=== PATIENT | female | born 1950 | race African-American/Black ===

== ENCOUNTER 2020-01-04 12:27 | Inpatient (IN) | payer MEDICARE, OTHER ==
[~2020-01-04] VITALS: Ht 172.7 cm; Wt 101.6 kg
[2020-01-04] MEDS ORDERED: FLEET ENEMA133 ML RECTAL (12:39)
[2020-01-04] MEDS ORDERED: KEPPRA500 M4 ORAL (12:39)
[2020-01-04] MEDS ORDERED: ATORVASTATIN CA40 MG ORAL (12:39)
[2020-01-04] MEDS ORDERED: ACETAMINOPHEN325 M1 ORAL (12:39)
[2020-01-04] MEDS ORDERED: BISACODYL5 MG ORAL (12:39)
[2020-01-04] MEDS ORDERED: NEPRO CARB STE237 ML PO (12:39)
[2020-01-04] MEDS ORDERED: SINGULAIR10 MG ORAL (12:39)
[2020-01-04] MEDS ORDERED: RENVELA2.4 GM ORAL (12:42)
[2020-01-04] MEDS ORDERED: LISINOPRIL20 MG ORAL (12:42)
[2020-01-04 13:38] VITALS: BP 128/65
--- NOTE | 2020-01-04 14:42 | Emergency Room Report ---
History of Present Illness General Chief Complaint: General Complaint Source: Patient Present Illness HPI 69-year-old female presents to ED for evaluation. Patient has history of end- stage renal disease was scheduled for dialysis today but could not go. Patient recently tested positive for Covid. Patient states she feels weak. No reported fevers or chills. No reported chest pain. No other aggravating relieving factors. No other associated symptoms Allergies: Coded Allergies: No Known Allergies (Unverified , 01/04/20) COVID-19 Screening Contact w/high risk pt: Yes Experienced COVID-19 symptoms?: Yes COVID-19 Testing performed REGISTERED ASSOCIATE: Yes COVID-19 Screening: Positive COVID-19 COVID-19 Testing Source: nasopharyn Patient History Past Medical History: COPD, renal disease, dialysis Past Surgical History: none Pertinent Family History: none Social History: Denies: smoking, alcohol use, drug use Now: No Immunizations: UTD Reviewed Nursing Documentation: PMH: Agreed; PSxH: Agreed Nursing Documentation-PMH Past Medical History: No History, Except For Hx COPD: Yes Hx Diabetes: Yes Review of Systems All Other Systems: limited Physical Exam Vital Signs Date Time Temp Pulse Resp B/P (MAP) Pulse Ox O2 Delivery O2 Flow Rate FiO2 01/04/20 12:27 99.3 85 15 128/65 (86) 91 Room Air Sp02 EP Interpretation: reviewed, normal General Appearance: lethargic, obese Head: normocephalic, atraumatic Eyes: bilateral eye normal inspection, bilateral eye PERRL ENT: hearing grossly normal, normal pharynx, no angioedema, normal voice Neck: full range of motion, supple/symm/no masses Respiratory: chest non-tender, crackles, speaking full sentences Cardiovascular #1: regular rate, rhythm, no edema Cardiovascular #2: 2+ carotid (R), 2+ carotid (L), 2+ radial (R), 2+ radial (L), 2+ dorsalis pedis (R), 2+ dorsalis pedis (L) Gastrointestinal: normal bowel sounds, non tender, soft, non-distended, no guarding, no rebound Rectal: deferred Genitourinary: normal inspection, no CVA tenderness Musculoskeletal: back normal, normal range of motion, non-tender Neurologic: other - Lethargic Psychiatric: other - Lethargic Reflexes: 3+ bicep (R), 3+ bicep (L), 3+ tricep (R), 3+ tricep (L), 3+ knee (R), 3+ knee (L) Skin: other - See nursing notes Lymphatic: no adenopathy Medical Decision Making Diagnostic Impression: Primary Impression: COVID-19 Additional Impression: ESRD (end stage renal disease) on dialysis ER Course Hospital Course 69-year-old female presenting for ED. Missed dialysis. Covid positive Differential diagnoses include: OK/unstable angina, fluid overload, CHF exacerabation, hyperkalemia, uremia Clinical course Patient placed on stretcher. In isolation. I wore full PPE. On hall monitor. After initial history and physical I ordered labs, EKG, chest x-ray Labs pending. IV access placed by radiology EKGA. fib. No acute ischemic changes interpreted by me Chest x-raybilateral patchy noted Patient confirmed Covid positive Case discussed with Dr. Velasco and he agreed to accept the patient to his s ervice for further care and support I. I feel this is a highly complex case requiring extensive working including EKG/Rhythm strip, Xray/CT/US, Blood/urine lab work, repeat exams while in ED, and administration of strong opiates/narcotics for pain control, admission to hospital or close patient follow up. Diagnosis -COVID-19, ESRD on dialysis admitted to floor in serious condition Laboratory Tests Test 01/04/20 15:45 01/04/20 19:45 01/05/20 04:00 White Blood Count 6.9 K/UL (4.8-10.8) 8.3 K/UL (4.8-10.8) Red Blood Count 3.49 M/UL (4.20-5.40) L 4.38 M/UL (4.20-5.40) Hemoglobin 9.4 G/DL (12.0-16.0) L 11.8 G/DL (12.0-16.0) L Hematocrit 29.0 % (37.0-47.0) L 37.2 % (37.0-47.0) Mean Corpuscular Volume 83 FL (80-99) 85 FL (80-99) Mean Corpuscular Hemoglobin 27.1 PG (27.0-31.0) 27.0 PG (27.0-31.0) Mean Corpuscular Hemoglobin Concent 32.5 G/DL (32.0-36.0) 31.8 G/DL (32.0-36.0) L Red Cell Distribution Width 14.1 % (11.6-14.8) 14.1 % (11.6-14.8) Platelet Count 183 K/UL (150-450) 247 K/UL (150-450) Mean Platelet Volume 7.3 FL (6.5-10.1) 7.3 FL (6.5-10.1) Neutrophils (%) (Auto) 64.8 % (45.0-75.0) 68.3 % (45.0-75.0) Lymphocytes (%) (Auto) 27.2 % (20.0-45.0) 24.6 % (20.0-45.0) Monocytes (%) (Auto) 5.3 % (1.0-10.0) 5.6 % (1.0-10.0) Eosinophils (%) (Auto) 1.2 % (0.0-3.0) 0.6 % (0.0-3.0) Basophils (%) (Auto) 1.4 % (0.0-2.0) 0.9 % (0.0-2.0) Prothrombin Time 11.4 SEC (9.30-11.50) Prothromb Time International Ratio 1.0 (0.9-1.1) Activated Partial Thromboplast Time 29 SEC (23-33) D-Dimer 2.63 mg/L FEU (0.00-0.49) H Sodium Level 135 MMOL/L (136-145) L 135 MMOL/L (136-145) L Potassium Level 5.7 MMOL/L (3.5-5.1) H 4.4 MMOL/L (3.5-5.1) Chloride Level 104 MMOL/L (98-107) 99 MMOL/L (98-107) Carbon Dioxide Level 20 MMOL/L (21-32) L 23 MMOL/L (21-32) Anion Gap 11 mmol/L (5-15) 13 mmol/L (5-15) Blood Urea Nitrogen 76 mg/dL (7-18) H 44 mg/dL (7-18) H Creatinine 7.8 MG/DL (0.55-1.30) H 5.5 MG/DL (0.55-1.30) H Estimat Glomerular Filtration Rate 6.2 mL/min (>60) 9.3 mL/min (>60) Glucose Level 114 MG/DL (74-106) H 96 MG/DL (74-106) Lactic Acid Level 0.80 mmol/L (0.4-2.0) Calcium Level 7.6 MG/DL (8.5-10.1) L 9.3 MG/DL (8.5-10.1) # Ferritin 886 NG/ML (8-388) H Total Bilirubin 0.4 MG/DL (0.2-1.0) Aspartate Amino Transf (AST/SGOT) 30 U/L (15-37) Alanine Aminotransferase (ALT/SGPT) 22 U/L (12-78) Alkaline Phosphatase 80 U/L (46-116) Lactate Dehydrogenase 287 U/L (81-234) H Troponin I 0.048 ng/mL (0.000-0.056) C-Reactive Protein, Quantitative 3.5 mg/dL (0.00-0.90) H Pro-B-Type Natriuretic Peptide 11231 pg/mL (0-125) H Total Protein 6.7 G/DL (6.4-8.2) Albumin 2.4 G/DL (3.4-5.0) L Globulin 4.3 g/dL Albumin/Globulin Ratio 0.6 (1.0-2.7) L Lipase 234 U/L (73-393) Vitamin D 25-Hydroxy Pending 25-Hydroxy Vitamin D2 Pending 25-Hydroxy Vitamin D3 Pending Hepatitis B Surface Antigen Pending Hemoglobin A1c 6.4 % (4.3-6.0) H Calcium (Send out) Pending Phosphorus Level 3.8 MG/DL (2.5-4.9) Magnesium Level 2.3 MG/DL (1.8-2.4) Iron Level 35 ug/dL (50-175) L Total Iron Binding Capacity 200 ug/dL (250-450) L Percent Iron Saturation 18 % (15-50) Unsaturated Iron Binding 165 ug/dL (112-346) Triglycerides Level 58 MG/DL (30-150) Cholesterol Level 105 MG/DL (< 200) LDL Cholesterol 35 mg/dL (<100) HDL Cholesterol 53 MG/DL (40-60) Cholesterol/HDL Ratio 2.0 (3.3-4.4) L Parathyroid Hormone (Intact) Pending EKG Diagnostic Results Troponin ordered: Yes Rate: normal Rhythm: NSR ST Segments: no acute changes ASA given to the pt in ED: No Rhythm Strip Diag. Results EP Interpretation: yes Rhythm: NSR, no PVC's, no ectopy Chest X-Ray Diagnostic Results Chest X-Ray Diagnostic Results : Chest X-Ray Ordered: Yes # of Views/Limited/Complete: 1 View Indication: Other EP Interpretation: Yes Interpretation: no effusion, no pneumothorax, other - patchy consolidation in the right lobe Impression: Other - PNA Electronically Signed by: Electronically signed by Emmett Groves MD Last Vital Signs Date Time Temp Pulse Resp B/P (MAP) Pulse Ox O2 Delivery O2 Flow Rate FiO2 01/04/20 13:38 99.3 78 15 128/65 93 Room Air Status: improved Disposition: ADMITTED INPATIENT Condition: Serious Referrals: Chichi Velasco M.D. (PCP) Emmett Groves MD Jan 04, 2020 14:42
--- NOTE | 2020-01-04 16:06 | History and Physical ---
History of Present Illness General Reason for Hospitalization: General Complaint Present Illness HPI Mrs. Scales is a 59-year-old female with past medical history of ESRD on hemod ialysis, hypertension, diabetes who presents after missing dialysis. Patient has not been feeling well over the last week with generalized malaise, fevers, cough, shortness of breath, and myalgias. Therefore she was denied hemodialysis today and directed to come to the ED for further evaluation. Patient was positive for Covid testing here. He currently lives at home alone and does not know of any other contacts with known Covid. She is currently in distress feeling weak. Denies any recent travels or sick contacts. She does not know the home medication she is currently on. In the ED, patient was dynamically stable and saturating well on room air. She will be admitted for Covid positive infection and hemodialysis. Past medical history: ESRD on HD, hypertension, diabetes Surgical history: Denies any Family history: Denies cardiac cardiac, lung disease Social history: Denies tobacco dependence, alcohol use, drug use Allergies: Coded Allergies: No Known Allergies (Unverified , 01/04/20) COVID-19 Screening Contact w/high risk pt: Yes Experienced COVID-19 symptoms?: Yes Coronavirus symptoms experienc: Fever (T>100.4F or >38C), Fatigue, Shortness of Breath, Muscle or Body Aches Medication History Scheduled Atorvastatin Calcium* (Atorvastatin Calcium*), 40 MG ORAL BEDTIME, (Reported) Bisacodyl* (Dulcolax*), MG ORAL DAILY, (Reported) Levetiracetam (Keppra), 500 MG ORAL EVERY 12 HOURS, (Reported) Lisinopril (Lisinopril*), 20 MG ORAL DAILY, (Reported) Montelukast Sodium* (Singulair*), 10 MG ORAL DAILY, (Reported) Na Phos,M-B/Na Phos,Di-Ba* (Fleet Enema*), 133 ML RECTAL DAILY, (Reported) Sevelamer Carbonate* (Renvela*), 2,400 MG ORAL THREE TIMES A DAY, (Reported) Scheduled PRN Acetaminophen* (Acetaminophen 325MG Tablet*), 325 MG ORAL Q4H PRN for Mild Pain (Pain Scale 1-3), (Reported) Miscellaneous Medications Nut.tx.impaired Renal Fxn,Soy (Nepro Carb Steady), 237 ML PO, (Reported) Patient History Healthcare decision maker Resuscitation status Advanced Directive on File Review of Systems Constitutional: Reports: chills, fever, malaise, weakness; Denies: no symptoms, see HPI, sweats, other Eye: Denies: no symptoms, see HPI, eye pain, blurred vision, tearing, double vision, nose pain, nose congestion, acuity changes, discharge, other ENT: Denies: no symptoms, see HPI, ear pain, ear discharge, nose pain, nose congestion, throat pain, throat swelling, mouth pain, hearing loss, nasal discharge, other Respiratory: Reports: shortness of breath; Denies: no symptoms, see HPI, cough, orthopnea, stridor, wheezing, PERALTA, sputum, other Cardiovascular: Denies: no symptoms, see HPI, chest pain, edema, palpitations, syncope, PND, other Gastrointestinal: Denies: no symptoms, see HPI, abdominal pain, constipation, diarrhea, nausea, vomiting, melena, hematemesis, other Genitourinary: Denies: no symptoms, see HPI, discharge, dysuria, frequency, hematuria, pain, retention, incontinence, urgency, vag bleed/dc, other Musculoskeletal: Denies: no symptoms, see HPI, back pain, gout, joint pain, joint swelling, muscle pain, muscle stiffness, other Skin: Denies: no symptoms, see HPI, rash, change in color, change in hair/nails, dryness, lesions, other Psychiatric: Denies: no symptoms, see HPI, prior hx, anxiety, depressed feelings, emotional problems, SI, HI, hallucinations, other Neurological: Denies: no symptoms, see HPI, headache, numbness, paresthesia, seizure, tingling, tremors, focal weakness, syncope, dizziness, other Endocrine: Denies: no symptoms, see HPI, excessive sweating, flushing, intolerance to temperature, increased thirst, increased urine, unexplained weight loss, other Hematologic/Lymphatic: Denies: no symptoms, see HPI, anemia, blood clots, easy bleeding, easy bruising, swollen glands, diathesis, other Physical Exam General Appearance: alert, moderate distress, agitated, alert oriented x3 Lines, tubes and drains: peripheral HEENT: normocephalic, atraumatic, PERRL Neck: non-tender, normal alignment, normal inspection Respiratory/Chest: lungs clear, normal breath sounds, no respiratory distress Cardiovascular/Chest: normal rate, regular rhythm, no JVD Abdomen: non tender, soft, no organomegaly Extremities: normal range of motion, non-tender Skin Exam: normal pigmentation, warm/dry Neurologic: software solutions architect II-XII grossly normal, alert, oriented x 3 Last 24 Hour Vital Signs Date Time Temp Pulse Resp B/P (MAP) Pulse Ox O2 Delivery O2 Flow Rate FiO2 01/04/20 13:38 99.3 78 15 128/65 93 Room Air 01/04/20 13:01 85 15 Room Air 01/04/20 12:27 99.3 85 15 128/65 (86) 91 Room Air Microbiology Date/Time Source Procedure Growth Status 01/04/20 13:18 Nasopharynx SARS-CoV-2 RdRp Gene Assay - Final Complete Height (Feet): 5 Height (Inches): 8.00 Weight (Pounds): 224 Assessment/Plan Diagnosis [place] I: Mrs. Holly is a 9-year-old female with past medical history of ESRD on hemodialysis presenting for missed hemodialysis and positive Covid. A: # Positive Covid infection # ESRD on hemodialysis # Hyperkalemia # ?Seizure disorder # Hypertension # ?Type 2 diabetes mellitus # Hyperlipidemia # Anemia of ESRD # Hyperglycemia # Obesity class I P: Hemodynamically stable Saturating well on room air, monitor for increased O2 support Keep saturation O2 greater than 92% DuoNebs as needed Add dexamethasone if saturation drops less than 94% - f/u ECHO Follow-up chest x-ray Follow-up inflammatory markers i.e. ferritin, LDH, D-dimer, troponin, CRP We will continue home lisinopril 20 mg daily, atorvastatin 40 mg daily Continue home Keppra 500 mg twice daily that was on her med rec, although patient is not able to clarify if she has a seizure disorder or not - f/u a1c, iron studies, lipid panel Consult Dr. Page, pulm, recs appreciated Consult Dr. Velasco, nephrology, recs appreciated -Consult Dr. Dai, ID, recs appreciated CODE: Full GI: None Diet: Regular DVT prophylaxis: Heparin 5000 units 3 times daily Dispo: Pending stabilization of Covid infection Time spent on this encounter was 45 minutes which included 25 minutes of counseling and care coordination. I discussed with the nurse at bedside. Time of note may not reflect time patient was seen. Arsenio Ferreira D.O Jan 04, 2020 16:06
--- NOTE | 2020-01-04 16:11 | General Progress Note ---
Advance Care Planning Advance Care Planning Advance Care Planning [facility] An independent Hospitalist group, where every patient is our [facility] Internal Medicine Hospitalist Advanced Care Planning Note Please contact us at Date of Discussion: A [id number] discussion with the patient regarding the patient's advanced care planning took place during this hospitalization on the above date. The discussion included the explanation and discussion of advance directives and associated forms/documents, as well as the patient's current code status. We also discussed at length the patient's medical conditions (both acute and chroni c), general prognosis, treatment options, and goals of care. The following summarizes the discussion: Advance Care Planning/Goals of Care: - Will attempt to fill out an AD and/or POLST with the patient prior to discharge, if not already completed - Continue current evaluation and management of any acute and chronic medical issues - Will continue to support the patient/family - Will continue to discuss both short- and long-term goals of care DPOA-HC/Surrogate Decision Maker: None currently appointed Code Status: Full Code Advanced Care Planning Forms/Documents Completed: Deferred until later encounter/visit A total of 17 minutes was spent on this discussion, including counseling, answering questions, and completing, if any, pertinent advanced care planning forms/documents. Time of note may not reflect time of encounter. Arsenio Ferreira D.O Jan 04, 2020 16:11
[2020-01-04] MEDS ORDERED: Milk of Magnesia 30ml Ud ORAL PRN (16:15)
[2020-01-04] MEDS ORDERED: Albuterol/Ipratropium 3ml neb HHN PRN (16:15)
[2020-01-04] MEDS: Heparin 5000 units/ml inj SUBQ SCH ×2 (16:15→21:07)
[2020-01-04] MEDS ORDERED: Mylanta II UD 30ml ORAL PRN (16:15)
[2020-01-04 16:26] LABS: BASOPHILS % (AUTO) 1.4 % (0.0-2.0); EOSINOPHILS % (AUTO) 1.2 % (0.0-3.0); HEMOGLOBIN 9.4 G/DL (12.0-16.0); LYMPHOCYTES % (AUTO) 27.2 % (20.0-45.0); MEAN CORPUSCULAR VOLUME 83 FL (80-99); MONOCYTES % (AUTO) 5.3 % (1.0-10.0); NEUTROPHILS % (AUTO) 64.8 % (45.0-75.0); PLATELET COUNT 183 K/UL (150-450); RED BLOOD COUNT 3.49 M/UL (4.20-5.40); RED CELL DISTRIBUTION WIDTH 14.1 % (11.6-14.8); WHITE BLOOD COUNT 6.9 K/UL (4.8-10.8)
--- NOTE | 2020-01-04 16:26 | Consultation ---
History of Present Illness General Chief Complaint: General Complaint Reason for Consultation: ESRD on HD Present Illness HPI Mrs. Scales is a 59-year-old female with past medical history of ESRD on hemodialysis, hypertension, diabetes who presents after missing dialysis. Patient has not been feeling well over the last week with generalized malaise, fevers, cough, shortness of breath, and myalgias. Therefore she was denied hemodialysis today and directed to come to the ED for further evaluation. Patient was positive for Covid testing here. He currently lives at home alone and does not know of any other contacts with known Covid. Allergies: Coded Allergies: No Known Allergies (Unverified , 01/04/20) Medication History Scheduled Atorvastatin Calcium* (Atorvastatin Calcium*), 40 MG ORAL BEDTIME, (Reported) Bisacodyl* (Dulcolax*), MG ORAL DAILY, (Reported) Levetiracetam (Keppra), 500 MG ORAL EVERY 12 HOURS, (Reported) Lisinopril (Lisinopril*), 20 MG ORAL DAILY, (Reported) Montelukast Sodium* (Singulair*), 10 MG ORAL DAILY, (Reported) Na Phos,M-B/Na Phos,Di-Ba* (Fleet Enema*), 133 ML RECTAL DAILY, (Reported) Sevelamer Carbonate* (Renvela*), 2,400 MG ORAL THREE TIMES A DAY, (Reported) Scheduled PRN Acetaminophen* (Acetaminophen 325MG Tablet*), 325 MG ORAL Q4H PRN for Mild Pain (Pain Scale 1-3), (Reported) Miscellaneous Medications Nut.tx.impaired Renal Fxn,Soy (Nepro Carb Steady), 237 ML PO, (Reported) Patient History Healthcare decision maker Resuscitation status Advanced Directive on File Review of Systems All Other Systems: negative except mentioned in HPI Physical Exam General Appearance: no apparent distress, alert Lines, tubes and drains: peripheral HEENT: normocephalic, atraumatic Neck: non-tender, normal alignment Respiratory/Chest: chest wall non-tender, lungs clear, normal breath sounds Cardiovascular/Chest: normal peripheral pulses, normal rate, regular rhythm Abdomen: normal bowel sounds, non tender, soft Extremities: normal range of motion, non-tender Skin Exam: normal pigmentation Neurologic: alert, oriented x 3 Last 24 Hour Vital Signs Date Time Temp Pulse Resp B/P (MAP) Pulse Ox O2 Delivery O2 Flow Rate FiO2 01/04/20 13:38 99.3 78 15 128/65 93 Room Air 01/04/20 13:01 85 15 Room Air 01/04/20 12:27 99.3 85 15 128/65 (86) 91 Room Air Laboratory Tests Test 01/04/20 15:45 White Blood Count Pending Red Blood Count Pending Hemoglobin Pending Hematocrit Pending Mean Corpuscular Volume Pending Mean Corpuscular Hemoglobin Pending Mean Corpuscular Hemoglobin Concent Pending Red Cell Distribution Width Pending Platelet Count Pending Mean Platelet Volume Pending Neutrophils (%) (Auto) Pending Lymphocytes (%) (Auto) Pending Monocytes (%) (Auto) Pending Eosinophils (%) (Auto) Pending Basophils (%) (Auto) Pending Prothrombin Time Pending Prothromb Time International Ratio Pending Activated Partial Thromboplast Time Pending D-Dimer Pending Sodium Level Pending Potassium Level Pending Chloride Level Pending Carbon Dioxide Level Pending Blood Urea Nitrogen Pending Creatinine Pending Estimat Glomerular Filtration Rate Pending Glucose Level Pending Lactic Acid Level Pending Calcium Level Pending Ferritin Pending Total Bilirubin Pending Aspartate Amino Transf (AST/SGOT) Pending Alanine Aminotransferase (ALT/SGPT) Pending Alkaline Phosphatase Pending Lactate Dehydrogenase Pending Troponin I Pending C-Reactive Protein, Quantitative Pending Pro-B-Type Natriuretic Peptide Pending Total Protein Pending Albumin Pending Globulin Pending Lipase Pending Microbiology Date/Time Source Procedure Growth Status 01/04/20 16:00 Rectum Received 01/04/20 13:18 Nasopharynx SARS-CoV-2 RdRp Gene Assay - Final Complete Height (Feet): 5 Height (Inches): 8.00 Weight (Pounds): 224 Medications Current Medications Medications (Trade) Dose Ordered Sig/Aurelio Route PRN Reason Start Time Stop Time Status Last Admin Dose Admin Acetaminophen (Tylenol) 650 mg Q4H PRN ORAL Mild Pain (Pain Scale 1-3) 01/04/20 16:15 02/03/20 16:14 Acetaminophen (Tylenol) 650 mg Q4H PRN ORAL Temp >100.5 01/04/20 16:15 02/03/20 16:14 Al Hydroxide/Mg Hydroxide (Mylanta II) 30 ml Q6H PRN ORAL dyspepsia 01/04/20 16:15 02/03/20 16:14 Albuterol/ Ipratropium (Combivent Respimat) 1 puff Q4H PRN INH Shortness of Breath 01/04/20 16:15 02/03/20 16:14 Atorvastatin Calcium (Lipitor) 40 mg BEDTIME ORAL 01/04/20 21:00 04/03/20 20:59 Dextrose (Dextrose 50%) 25 ml Q30M PRN IV Hypoglycemia 01/04/20 16:15 04/03/20 16:14 Dextrose (Dextrose 50%) 50 ml Q30M PRN IV Hypoglycemia 01/04/20 16:15 04/03/20 16:14 Heparin Sodium (Porcine) (Heparin 5000 units/ml) 5,000 units EVERY 8 HOURS SUBQ 01/04/20 16:15 02/18/20 16:14 Levetiracetam (Keppra) 500 mg EVERY 12 HOURS ORAL 01/04/20 21:00 02/03/20 20:59 Lisinopril (PriniviL) 20 mg DAILY ORAL 01/05/20 09:00 02/04/20 08:59 Magnesium Hydroxide (Mom) 30 ml HSPRN PRN ORAL Constipation 01/04/20 16:15 02/03/20 16:14 Ondansetron HCl (Zofran) 4 mg Q6H PRN IVP Nausea & Vomiting 01/04/20 16:15 02/03/20 16:14 Assessment/Plan Diagnosis [place] I: # Positive Covid infection # ESRD on hemodialysis # Hyperkalemia # ?Seizure disorder # Hypertension # ?Type 2 diabetes mellitus # Hyperlipidemia # Anemia of ESRD # Hyperglycemia # Obesity class I - emergent HD today - monitor bmp - pulm and ID eval - consider dexa - continue lisinopril 20mg daily - continue keppra - check pTH vitamin D - check iron panel Chichi Velasco M.D. Jan 04, 2020 16:26
--- NOTE | 2020-01-04 16:37 | Diagnostic Imaging Report ---
Indication: Cough Technique: One view of the chest Comparison: none Findings: The heart is upper limits normal in size. There are bilateral interstitial and airspace infiltrates versus edema Impression: Bilateral infiltrates versus edema. Correlate with clinical findings
[2020-01-04 16:42] LABS: CALCIUM 7.6 MG/DL (8.5-10.1); CREATININE 7.8 MG/DL (0.55-1.30); POTASSIUM 5.7 MMOL/L (3.5-5.1)
[2020-01-04 16:53] LABS: ALBUMIN 2.4 G/DL (3.4-5.0); ALBUMIN/GLOBULIN RATIO 0.6 (1.0-2.7); BILIRUBIN,TOTAL 0.4 MG/DL (0.2-1.0)
[2020-01-04] MEDS ORDERED: Sodium Polystyrene Sulfonate 15gm Powder ORAL ONE (17:00)
[2020-01-04] MEDS ORDERED: Sodium Polystyrene Sulfonate 15gm Powder ORAL SCH (17:00)
[2020-01-04 17:54] VITALS: BP 117/47
[2020-01-04] MEDS ORDERED: Albuterol 90mcg Inhaler 8gm INH SCH (18:00)
[2020-01-04] MEDS ORDERED: Calcium Chloride 10% 10ml carpuject IVP SCH (18:00)
[2020-01-04 18:15] VITALS: BP 128/80
--- NOTE | 2020-01-04 19:45 | Consultation ---
DATE OF CONSULTATION: 01/04/2020 PULMONARY CONSULTATION CONSULTING PHYSICIAN: Osmin Page MD HISTORY OF PRESENT ILLNESS: This is a 59-year-old female with a history of ESRD, on dialysis. She came to the hospital after having missed dialysis. The patient is known hypertensive and diabetic as well. She reports feeling unwell with fevers, cough, and shortness of breath. The patient was seen and evaluated in the emergency room and her COVID-19 test came back positive. She is now being admitted for subsequent management and care. Currently, she is saturating well on room air. PAST MEDICAL HISTORY: ESRD on dialysis, hypertension, diabetes mellitus. HOME MEDICATIONS: Lipitor, Keppra, lisinopril, Singulair, and Renvela. ALLERGIES: None reported. PREVIOUS SURGERIES: None. REVIEW OF SYSTEMS: The patient denies any headaches, hematemesis, melena, hematochezia, night sweats, or weight loss. PHYSICAL EXAMINATION: GENERAL: Reveals a pleasant female. VITAL SIGNS: Blood pressure is 120/60, heart rate 74, respirations 16, O2 saturation 93% on room air. HEENT: Unremarkable. LUNGS: Clear breath sounds bilaterally. ABDOMEN: Soft. EXTREMITIES: There is no edema. NEUROLOGIC: Nonfocal. LABORATORY DATA: Lab testing shows normal CBC and BMP with exception of hemoglobin 11.4 and creatinine 7.8. Ferritin 886. LDH 287. IMAGING STUDIES: The patient underwent chest x-ray, which shows bilateral infiltrates. IMPRESSION: 1. COVID pneumonia. 2. ESRD, on dialysis. 3. Hypertension. 4. Diabetes mellitus. DISCUSSION: Admit to the hospital. Currently saturating well on room air, we will continue. Advise steroid usage. We will also recommend remdesivir. We will defer to ID for subsequent assessment. We will follow carefully. Osmin Page M.D. DR: RODRICK JOB#: [id number] CC:
[2020-01-04 21:00] VITALS: BP 153/76
[2020-01-04] MEDS: Atorvastatin 20mg tab ORAL SCH (21:06)
[2020-01-05] VITALS: BP 151/89
[2020-01-05 04:00] VITALS: BP 156/84
[2020-01-05 05:32] LABS: BASOPHILS % (AUTO) 0.9 % (0.0-2.0); EOSINOPHILS % (AUTO) 0.6 % (0.0-3.0); HEMATOCRIT 37.2 % (37.0-47.0); HEMOGLOBIN 11.8 G/DL (12.0-16.0); LYMPHOCYTES % (AUTO) 24.6 % (20.0-45.0); MEAN CORPUSCULAR VOLUME 85 FL (80-99); MONOCYTES % (AUTO) 5.6 % (1.0-10.0); NEUTROPHILS % (AUTO) 68.3 % (45.0-75.0); PLATELET COUNT 247 K/UL (150-450); RED BLOOD COUNT 4.38 M/UL (4.20-5.40); RED CELL DISTRIBUTION WIDTH 14.1 % (11.6-14.8); WHITE BLOOD COUNT 8.3 K/UL (4.8-10.8)
[2020-01-05] MEDS: Heparin 5000 units/ml inj SUBQ SCH ×3 (05:45→21:17)
[2020-01-05 05:53] LABS: ANION GAP 13 mmol/L (5-15); BLOOD UREA NITROGEN 44 mg/dL (7-18); CALCIUM 9.3 MG/DL (8.5-10.1); CARBON DIOXIDE 23 MMOL/L (21-32); CHLORIDE 99 MMOL/L (98-107); CHOLESTEROL 105 MG/DL (< 200); CREATININE 5.5 MG/DL (0.55-1.30); HDL CHOLESTEROL 53 MG/DL (40-60); PHOSPHORUS 3.8 MG/DL (2.5-4.9); POTASSIUM 4.4 MMOL/L (3.5-5.1); SODIUM 135 MMOL/L (136-145); TRIGLYCERIDES 58 MG/DL (30-150)
[2020-01-05 05:58] LABS: % IRON SATURATION 18 % (15-50); IRON 35 ug/dL (50-175); TOTAL IRON BINDING CAPACITY 200 ug/dL (250-450)
[2020-01-05 08:00] VITALS: BP 161/81
[2020-01-05] MEDS: Lisinopril 20mg tab ORAL SCH (08:42)
--- NOTE | 2020-01-05 09:42 | Pulmonology Progress Note ---
Subjective Interval Events: None new reported Constitutional: Reports: no symptoms HEENT: Repors: no symptoms Respiratory: Reports: no symptoms Cardiovascular: Reports: no symptoms Gastrointestinal/Abdominal: Reports: no symptoms Allergies: Coded Allergies: No Known Allergies (Unverified , 01/04/20) Objective Last 24 Hour Vital Signs Date Time Temp Pulse Resp B/P (MAP) Pulse Ox O2 Delivery O2 Flow Rate FiO2 01/05/20 08:42 161/81 01/05/20 04:00 98.9 96 18 156/84 (108) 98 01/05/20 00:00 98.6 95 18 151/89 (109) 98 01/04/20 22:44 Room Air 01/04/20 21:00 98.9 96 20 153/76 (101) 98 01/04/20 18:15 99.7 81 22 128/80 (96) 98 01/04/20 18:04 99.0 85 17 117/47 100 Room Air 01/04/20 17:54 99.0 85 17 117/47 100 Room Air 01/04/20 13:38 99.3 78 15 128/65 93 Room Air 01/04/20 13:01 85 15 Room Air 01/04/20 12:27 99.3 85 15 128/65 (86) 91 Room Air Intake and Output 01/04/20 01/05/20 19:00 07:00 Intake Total 150 ml Balance 150 ml Intake Oral 150 ml # Voids 1 2 General Appearance: no acute distress HEENT: normocephalic Respiratory: chest wall non-tender, lungs clear Cardiovascular: normal peripheral pulses Abdomen: normal bowel sounds Microbiology Date/Time Source Procedure Growth Status 01/04/20 16:00 Rectum Received 01/04/20 13:18 Nasopharynx SARS-CoV-2 RdRp Gene Assay - Final Complete Laboratory Tests 01/04/20 15:45: White Blood Count 6.9, Red Blood Count 3.49L, Hemoglobin 9.4L, Hematocrit 29.0L, Mean Corpuscular Volume 83, Mean Corpuscular Hemoglobin 27.1, Mean Corpuscular Hemoglobin Concent 32.5, Red Cell Distribution Width 14.1, Platelet Count 183, Mean Platelet Volume 7.3, Neutrophils (%) (Auto) 64.8, Lymphocytes (%) (Auto) 27.2, Monocytes (%) (Auto) 5.3, Eosinophils (%) (Auto) 1.2, Basophils (%) (Auto) 1.4, Prothrombin Time 11.4, Prothromb Time International Ratio 1.0, Activated Partial Thromboplast Time 29, D-Dimer 2.63H, Sodium Level 135L, Potassium Level 5.7H, Chloride Level 104, Carbon Dioxide Level 20L, Anion Gap 11, Blood Urea Nitrogen 76H, Creatinine 7.8H, Estimat Glomerular Filtration Rate 6.2, Glucose Level 114H, Lactic Acid Level 0.80, Calcium Level 7.6L, Ferritin 886H, Total Bilirubin 0.4, Aspartate Amino Transf (AST/SGOT) 30, Alanine Aminotransferase (ALT/SGPT) 22, Alkaline Phosphatase 80, Lactate Dehydrogenase 287H, Troponin I 0.048, C-Reactive Protein, Quantitative 3.5H, Pro-B-Type Natriuretic Peptide 74806H, Total Protein 6.7, Albumin 2.4L, Globulin 4.3, Albumin/Globulin Ratio 0.6L, Lipase 234, Vitamin D 25-Hydroxy [Pending], 25-Hydroxy Vitamin D2 [Pending], 25-Hydroxy Vitamin D3 [Pending] 01/04/20 19:45: Hepatitis B Surface Antigen [Pending] 01/05/20 04:00: White Blood Count 8.3, Red Blood Count 4.38, Hemoglobin 11.8L, Hematocrit 37.2, Mean Corpuscular Volume 85, Mean Corpuscular Hemoglobin 27.0, Mean Corpuscular Hemoglobin Concent 31.8L, Red Cell Distribution Width 14.1, Platelet Count 247, Mean Platelet Volume 7.3, Neutrophils (%) (Auto) 68.3, Lymphocytes (%) (Auto) 24.6, Monocytes (%) (Auto) 5.6, Eosinophils (%) (Auto) 0.6, Basophils (%) (Auto) 0.9, Sodium Level 135L, Potassium Level 4.4, Chloride Level 99, Carbon Dioxide Level 23, Anion Gap 13, Blood Urea Nitrogen 44H, Creatinine 5.5H, Estimat Glomerular Filtration Rate 9.3, Glucose Level 96, Calcium Level 9.3#, Hemoglobin A1c 6.4H, Calcium (Send out) [Pending], Phosphorus Level 3.8, Magnesium Level 2.3, Iron Level 35L, Total Iron Binding Capacity 200L, Percent Iron Saturation 18, Unsaturated Iron Binding 165, Triglycerides Level 58, Cholesterol Level 105, LDL Cholesterol 35, HDL Cholesterol 53, Cholesterol/HDL Ratio 2.0L, Parathyroid Hormone (Intact) [Pending] Current Medications Medications (Trade) Dose Ordered Sig/Aurelio Route PRN Reason Start Time Stop Time Status Last Admin Dose Admin Acetaminophen (Tylenol) 650 mg Q4H PRN ORAL Mild Pain (Pain Scale 1-3) 01/04/20 16:15 02/03/20 16:14 Acetaminophen (Tylenol) 650 mg Q4H PRN ORAL Temp >100.5 01/04/20 16:15 02/03/20 16:14 Al Hydroxide/Mg Hydroxide (Mylanta II) 30 ml Q6H PRN ORAL dyspepsia 01/04/20 16:15 02/03/20 16:14 Albuterol/ Ipratropium (Combivent Respimat) 1 puff Q4H PRN INH Shortness of Breath 01/04/20 16:15 02/03/20 16:14 Atorvastatin Calcium (Lipitor) 40 mg BEDTIME ORAL 01/04/20 21:00 04/03/20 20:59 01/04/20 21:06 Dextrose (Dextrose 50%) 25 ml Q30M PRN IV Hypoglycemia 01/04/20 16:15 04/03/20 16:14 Dextrose (Dextrose 50%) 50 ml Q30M PRN IV Hypoglycemia 01/04/20 16:15 04/03/20 16:14 Heparin Sodium (Porcine) (Heparin 5000 units/ml) 5,000 units EVERY 8 HOURS SUBQ 01/04/20 16:15 02/18/20 16:14 Levetiracetam (Keppra) 500 mg EVERY 12 HOURS ORAL 01/04/20 21:00 02/03/20 20:59 01/05/20 08:42 Lisinopril (PriniviL) 20 mg DAILY ORAL 01/05/20 09:00 02/04/20 08:59 01/05/20 08:42 Magnesium Hydroxide (Mom) 30 ml HSPRN PRN ORAL Constipation 01/04/20 16:15 02/03/20 16:14 Ondansetron HCl (Zofran) 4 mg Q6H PRN IVP Nausea & Vomiting 01/04/20 16:15 02/03/20 16:14 Assessment/Plan Assessment/Plan IMPRESSION: 1. COVID pneumonia. 2. ESRD, on dialysis. 3. Hypertension. 4. Diabetes mellitus. DISCUSSION: Admit to the hospital. Currently saturating well on room air, Defer choice of Remdesivir to ID; doubt need I will follow carefully. Ana Johnson Omar Syed MD Jan 05, 2020 09:42
[2020-01-05 12:00] VITALS: BP 115/75
--- NOTE | 2020-01-05 13:34 | Nephrology Progress Note ---
Assessment/Plan Plan # Positive Covid infection # ESRD on hemodialysis # Hyperkalemia # ?Seizure disorder # Hypertension # ?Type 2 diabetes mellitus # Hyperlipidemia # Anemia of ESRD # Hyperglycemia # Obesity class I - HD tomorrow - monitor bmp - pulm and ID eval - consider dexa - continue lisinopril 20mg daily - continue keppra - check pTH vitamin D - check iron panel Subjective ROS Limited/Unobtainable: No Constitutional: Reports: weakness HEENT: Denies: no symptoms, eye pain, blurred vision, tearing, double vision, ear pain, ear discharge, nose pain, nose congestion, throat pain, throat swelling, mouth pain, mouth swelling, other Neurologic/Psychiatric: Denies: no symptoms, anxiety, depressed, emotional problems, headache, numbness, paresthesia, pre-existing deficit, seizure, tingling, tremors, weakness, other Subjective feeling ok no fevers no cp or SOB Objective Objective Last 24 Hour Vital Signs Date Time Temp Pulse Resp B/P (MAP) Pulse Ox O2 Delivery O2 Flow Rate FiO2 01/05/20 12:00 99.5 79 19 115/75 (88) 97 01/05/20 09:00 Room Air 01/05/20 08:42 161/81 01/05/20 08:00 99.0 77 19 161/81 (107) 98 01/05/20 04:00 98.9 96 18 156/84 (108) 98 01/05/20 00:00 98.6 95 18 151/89 (109) 98 01/04/20 22:44 Room Air 01/04/20 21:00 98.9 96 20 153/76 (101) 98 01/04/20 18:15 99.7 81 22 128/80 (96) 98 01/04/20 18:04 99.0 85 17 117/47 100 Room Air 01/04/20 17:54 99.0 85 17 117/47 100 Room Air 01/04/20 13:38 99.3 78 15 128/65 93 Room Air Intake and Output 01/04/20 01/05/20 19:00 07:00 Intake Total 150 ml Output Total 2000 ml Balance -1850 ml Intake Oral 150 ml Output Hemodialysis UF 2000 ml # Voids 1 2 Laboratory Tests 01/04/20 15:45: White Blood Count 6.9, Red Blood Count 3.49L, Hemoglobin 9.4L, Hematocrit 29.0L, Mean Corpuscular Volume 83, Mean Corpuscular Hemoglobin 27.1, Mean Corpuscular Hemoglobin Concent 32.5, Red Cell Distribution Width 14.1, Platelet Count 183, Mean Platelet Volume 7.3, Neutrophils (%) (Auto) 64.8, Lymphocytes (%) (Auto) 27.2, Monocytes (%) (Auto) 5.3, Eosinophils (%) (Auto) 1.2, Basophils (%) (Auto) 1.4, Prothrombin Time 11.4, Prothromb Time International Ratio 1.0, Activated Partial Thromboplast Time 29, D-Dimer 2.63H, Sodium Level 135L, Potassium Level 5.7H, Chloride Level 104, Carbon Dioxide Level 20L, Anion Gap 11, Blood Urea Nitrogen 76H, Creatinine 7.8H, Estimat Glomerular Filtration Rate 6.2, Glucose Level 114H, Lactic Acid Level 0.80, Calcium Level 7.6L, Ferritin 886H, Total Bilirubin 0.4, Aspartate Amino Transf (AST/SGOT) 30, Alanine Aminotransferase (ALT/SGPT) 22, Alkaline Phosphatase 80, Lactate Dehydrogenase 287H, Troponin I 0.048, C-Reactive Protein, Quantitative 3.5H, Pro-B-Type Natriuretic Peptide 89045S, Total Protein 6.7, Albumin 2.4L, Globulin 4.3, Albumin/Globulin Ratio 0.6L, Lipase 234, Vitamin D 25-Hydroxy [Pending], 25-Hydroxy Vitamin D2 [Pending], 25-Hydroxy Vitamin D3 [Pending] 01/04/20 19:45: Hepatitis B Surface Antigen [Pending] 01/05/20 04:00: White Blood Count 8.3, Red Blood Count 4.38, Hemoglobin 11.8L, Hematocrit 37.2, Mean Corpuscular Volume 85, Mean Corpuscular Hemoglobin 27.0, Mean Corpuscular Hemoglobin Concent 31.8L, Red Cell Distribution Width 14.1, Platelet Count 247, Mean Platelet Volume 7.3, Neutrophils (%) (Auto) 68.3, Lymphocytes (%) (Auto) 24.6, Monocytes (%) (Auto) 5.6, Eosinophils (%) (Auto) 0.6, Basophils (%) (Auto) 0.9, Sodium Level 135L, Potassium Level 4.4, Chloride Level 99, Carbon Dioxide Level 23, Anion Gap 13, Blood Urea Nitrogen 44H, Creatinine 5.5H, Estimat Glomerular Filtration Rate 9.3, Glucose Level 96, Calcium Level 9.3#, Hemoglobin A1c 6.4H, Calcium (Send out) [Pending], Phosphorus Level 3.8, Magnesium Level 2.3, Iron Level 35L, Total Iron Binding Capacity 200L, Percent Iron Saturation 18, Unsaturated Iron Binding 165, Triglycerides Level 58, Cholesterol Level 105, LDL Cholesterol 35, HDL Cholesterol 53, Cholesterol/HDL Ratio 2.0L, Parathyroid Hormone (Intact) [Pending] Height (Feet): 5 Height (Inches): 8.00 Weight (Pounds): 224 Chichi Velasco M.D. Jan 05, 2020 13:34
--- NOTE | 2020-01-05 13:59 | Consultation ---
History of Present Illness General Date patient seen: Jan 05, 2020 Reason for Hospitalization: General Complaint Present Illness HPI Six 9-year-old female on hemodialysis missed dialysis and presented with general complaints of feeling weak fatigue shortness of breath abdominal discomfort. Admitted further care and management. Surgery called to evaluate for abdominal etiology given her discomfort. Intermittent nausea no vomiting. Passing flatus and bowel movement. Patient seen patient value chart reviewed. Labs reviewed imaging reviewed EMR reviewed Allergies: Coded Allergies: No Known Allergies (Unverified , 01/04/20) COVID-19 Screening Contact w/high risk pt: Yes Experienced COVID-19 symptoms?: Yes Coronavirus symptoms experienc: Shortness of Breath Medication History Scheduled Atorvastatin Calcium* (Atorvastatin Calcium*), 40 MG ORAL BEDTIME, (Reported) Bisacodyl* (Dulcolax*), MG ORAL DAILY, (Reported) Levetiracetam (Keppra), 500 MG ORAL EVERY 12 HOURS, (Reported) Lisinopril (Lisinopril*), 20 MG ORAL DAILY, (Reported) Montelukast Sodium* (Singulair*), 10 MG ORAL DAILY, (Reported) Na Phos,M-B/Na Phos,Di-Ba* (Fleet Enema*), 133 ML RECTAL DAILY, (Reported) Sevelamer Carbonate* (Renvela*), 2,400 MG ORAL THREE TIMES A DAY, (Reported) Scheduled PRN Acetaminophen* (Acetaminophen 325MG Tablet*), 325 MG ORAL Q4H PRN for Mild Pain (Pain Scale 1-3), (Reported) Miscellaneous Medications Nut.tx.impaired Renal Fxn,Soy (Nepro Carb Steady), 237 ML PO, (Reported) Patient History History Provided By: Patient, Medical Record, PMD Healthcare decision maker Resuscitation status Advanced Directive on File Past Medical/Surgical History Past Medical/Surgical History: (1) Abdominal discomfort (2) ESRD (end stage renal disease) on dialysis (3) COVID-19 Review of Systems Review of Symptoms General ROS: no weight loss or fever Psychological ROS: no depression or mood changes, no memory loss Ophthalmic ROS: no visual changes or eye irritation ENT ROS: no nasal congestion, hearing loss, dizziness Allergy and Immunology ROS: no allergic symptoms or urticaria Hematological and Lymphatic ROS: no swollen glands, unusual bleeding or bruising Endocrine ROS: no polyuria, polydipsia, weight changes, temperature intolerance Respiratory ROS: no cough, shortness of breath, or wheezing Cardiovascular ROS: no chest pain or dyspnea on exertion Gastrointestinal ROS: denies abdominal pain, bright red blood in stool. Musculoskeletal ROS: no myalgias or arthralgias Neurological ROS: no TIA or stroke symptoms Dermatological ROS: no new or changing skin lesions, rashes or pruritis Physical Exam Physical Exam General appearance: alert, cooperative, no distress, appears stated age Head: Normocephalic, without obvious abnormality, atraumatic Eyes: conjunctivae/corneas clear. PERRL, EOM's intact. Fundi benign Throat: Lips, mucosa, and tongue normal. Teeth and gums normal Neck: supple, symmetrical, trachea midline, no adenopathy, thyroid: not enlarged, symmetric, no tenderness/mass/nodules, no carotid bruit and no JVD Lungs: clear to auscultation bilaterally Heart: regular rate and rhythm, S1, S2 normal, no murmur, click, rub or gallop Abdomen: soft, non-tender. Bowel sounds normal. No masses, no organomegaly obese Extremities: extremities normal, atraumatic, no cyanosis or edema RUQ fistula Pulses: 2+ and symmetric Skin: Skin color, texture, turgor normal. No rashes or lesions Neurologic: Grossly normal Last 24 Hour Vital Signs Date Time Temp Pulse Resp B/P (MAP) Pulse Ox O2 Delivery O2 Flow Rate FiO2 01/05/20 12:00 99.5 79 19 115/75 (88) 97 01/05/20 09:00 Room Air 01/05/20 08:42 161/81 01/05/20 08:00 99.0 77 19 161/81 (107) 98 01/05/20 04:00 98.9 96 18 156/84 (108) 98 01/05/20 00:00 98.6 95 18 151/89 (109) 98 01/04/20 22:44 Room Air 01/04/20 21:00 98.9 96 20 153/76 (101) 98 01/04/20 18:15 99.7 81 22 128/80 (96) 98 01/04/20 18:04 99.0 85 17 117/47 100 Room Air 01/04/20 17:54 99.0 85 17 117/47 100 Room Air Intake and Output 01/04/20 01/05/20 19:00 07:00 Intake Total 150 ml Output Total 2000 ml Balance -1850 ml Intake Oral 150 ml Output Hemodialysis UF 2000 ml # Voids 1 2 Laboratory Tests Test 01/04/20 15:45 01/04/20 19:45 01/05/20 04:00 White Blood Count 6.9 K/UL (4.8-10.8) 8.3 K/UL (4.8-10.8) Red Blood Count 3.49 M/UL (4.20-5.40) L 4.38 M/UL (4.20-5.40) Hemoglobin 9.4 G/DL (12.0-16.0) L 11.8 G/DL (12.0-16.0) L Hematocrit 29.0 % (37.0-47.0) L 37.2 % (37.0-47.0) Mean Corpuscular Volume 83 FL (80-99) 85 FL (80-99) Mean Corpuscular Hemoglobin 27.1 PG (27.0-31.0) 27.0 PG (27.0-31.0) Mean Corpuscular Hemoglobin Concent 32.5 G/DL (32.0-36.0) 31.8 G/DL (32.0-36.0) L Red Cell Distribution Width 14.1 % (11.6-14.8) 14.1 % (11.6-14.8) Platelet Count 183 K/UL (150-450) 247 K/UL (150-450) Mean Platelet Volume 7.3 FL (6.5-10.1) 7.3 FL (6.5-10.1) Neutrophils (%) (Auto) 64.8 % (45.0-75.0) 68.3 % (45.0-75.0) Lymphocytes (%) (Auto) 27.2 % (20.0-45.0) 24.6 % (20.0-45.0) Monocytes (%) (Auto) 5.3 % (1.0-10.0) 5.6 % (1.0-10.0) Eosinophils (%) (Auto) 1.2 % (0.0-3.0) 0.6 % (0.0-3.0) Basophils (%) (Auto) 1.4 % (0.0-2.0) 0.9 % (0.0-2.0) Prothrombin Time 11.4 SEC (9.30-11.50) Prothromb Time International Ratio 1.0 (0.9-1.1) Activated Partial Thromboplast Time 29 SEC (23-33) D-Dimer 2.63 mg/L FEU (0.00-0.49) H Sodium Level 135 MMOL/L (136-145) L 135 MMOL/L (136-145) L Potassium Level 5.7 MMOL/L (3.5-5.1) H 4.4 MMOL/L (3.5-5.1) Chloride Level 104 MMOL/L (98-107) 99 MMOL/L (98-107) Carbon Dioxide Level 20 MMOL/L (21-32) L 23 MMOL/L (21-32) Anion Gap 11 mmol/L (5-15) 13 mmol/L (5-15) Blood Urea Nitrogen 76 mg/dL (7-18) H 44 mg/dL (7-18) H Creatinine 7.8 MG/DL (0.55-1.30) H 5.5 MG/DL (0.55-1.30) H Estimat Glomerular Filtration Rate 6.2 mL/min (>60) 9.3 mL/min (>60) Glucose Level 114 MG/DL (74-106) H 96 MG/DL (74-106) Lactic Acid Level 0.80 mmol/L (0.4-2.0) Calcium Level 7.6 MG/DL (8.5-10.1) L 9.3 MG/DL (8.5-10.1) # Ferritin 886 NG/ML (8-388) H Total Bilirubin 0.4 MG/DL (0.2-1.0) Aspartate Amino Transf (AST/SGOT) 30 U/L (15-37) Alanine Aminotransferase (ALT/SGPT) 22 U/L (12-78) Alkaline Phosphatase 80 U/L (46-116) Lactate Dehydrogenase 287 U/L (81-234) H Troponin I 0.048 ng/mL (0.000-0.056) C-Reactive Protein, Quantitative 3.5 mg/dL (0.00-0.90) H Pro-B-Type Natriuretic Peptide 37603 pg/mL (0-125) H Total Protein 6.7 G/DL (6.4-8.2) Albumin 2.4 G/DL (3.4-5.0) L Globulin 4.3 g/dL Albumin/Globulin Ratio 0.6 (1.0-2.7) L Lipase 234 U/L (73-393) Vitamin D 25-Hydroxy Pending 25-Hydroxy Vitamin D2 Pending 25-Hydroxy Vitamin D3 Pending Hepatitis B Surface Antigen Pending Hemoglobin A1c 6.4 % (4.3-6.0) H Calcium (Send out) Pending Phosphorus Level 3.8 MG/DL (2.5-4.9) Magnesium Level 2.3 MG/DL (1.8-2.4) Iron Level 35 ug/dL (50-175) L Total Iron Binding Capacity 200 ug/dL (250-450) L Percent Iron Saturation 18 % (15-50) Unsaturated Iron Binding 165 ug/dL (112-346) Triglycerides Level 58 MG/DL (30-150) Cholesterol Level 105 MG/DL (< 200) LDL Cholesterol 35 mg/dL (<100) HDL Cholesterol 53 MG/DL (40-60) Cholesterol/HDL Ratio 2.0 (3.3-4.4) L Parathyroid Hormone (Intact) Pending Microbiology Date/Time Source Procedure Growth Status 01/04/20 16:00 Rectum Received Height (Feet): 5 Height (Inches): 8.00 Weight (Pounds): 224 Medications Current Medications Medications (Trade) Dose Ordered Sig/Aurelio Route PRN Reason Start Time Stop Time Status Last Admin Dose Admin Acetaminophen (Tylenol) 650 mg Q4H PRN ORAL Mild Pain (Pain Scale 1-3) 01/04/20 16:15 02/03/20 16:14 Acetaminophen (Tylenol) 650 mg Q4H PRN ORAL Temp >100.5 01/04/20 16:15 02/03/20 16:14 Al Hydroxide/Mg Hydroxide (Mylanta II) 30 ml Q6H PRN ORAL dyspepsia 01/04/20 16:15 02/03/20 16:14 Albuterol/ Ipratropium (Combivent Respimat) 1 puff Q4H PRN INH Shortness of Breath 01/04/20 16:15 02/03/20 16:14 Atorvastatin Calcium (Lipitor) 40 mg BEDTIME ORAL 01/04/20 21:00 04/03/20 20:59 01/04/20 21:06 Dextrose (Dextrose 50%) 25 ml Q30M PRN IV Hypoglycemia 01/04/20 16:15 04/03/20 16:14 Dextrose (Dextrose 50%) 50 ml Q30M PRN IV Hypoglycemia 01/04/20 16:15 04/03/20 16:14 Heparin Sodium (Porcine) (Heparin 5000 units/ml) 5,000 units EVERY 8 HOURS SUBQ 01/04/20 16:15 02/18/20 16:14 Levetiracetam (Keppra) 500 mg EVERY 12 HOURS ORAL 01/04/20 21:00 02/03/20 20:59 01/05/20 08:42 Lisinopril (PriniviL) 20 mg DAILY ORAL 01/05/20 09:00 02/04/20 08:59 01/05/20 08:42 Magnesium Hydroxide (Mom) 30 ml HSPRN PRN ORAL Constipation 01/04/20 16:15 02/03/20 16:14 Ondansetron HCl (Zofran) 4 mg Q6H PRN IVP Nausea & Vomiting 01/04/20 16:15 02/03/20 16:14 Assessment/Plan Problem List: (1) ESRD (end stage renal disease) on dialysis ICD Codes: N18.6 - End stage renal disease; Z99.2 - Dependence on renal dialysis SNOMED: 407127429 (2) COVID-19 Assessment & Plan: as per ID ICD Codes: U07.1 - COVID-19 SNOMED: 732350050 (3) Abdominal discomfort Assessment & Plan: Six 9-year-old female complaint abdominal discomfort after missing dialysis. Intermittent nausea no emesis. Passing flatus having bowel movements. Labs noted no leukocytosis H&H noted on examination abdomen obese soft nondistended nontender bowel sounds are positive. Likely abdominal cramping no acute abdominal process identified. No need further imaging right now. Will follow with serial abdominal examinations. Continue diet as tolerated. Will follow with recommendations thank you for letting participate patient's care ICD Codes: R10.9 - Unspecified abdominal pain SNOMED: 24609607 Tomás Melissa Jan 05, 2020 13:59
[2020-01-05 16:00] VITALS: BP 144/78
--- NOTE | 2020-01-05 18:04 | Cardiology Report ---
APPROVED REPORT EXAM: Two-dimensional and M-mode echocardiogram with Doppler and color Doppler. INDICATION Congestive Heart Failure M-Mode DIMENSIONS IVSd1.0 (0.7-1.1cm)Left Atrium (MM)4.0 (1.6-4.0cm) LVDd4.8 (3.5-5.6cm)Aortic Root2.4 (2.0-3.7cm) PWd1.0 (0.7-1.1cm)Aortic Cusp Exc.1.8 (1.5-2.0cm) IVSs1.7 cmEPSS0.3 (>1.0cm) LVDs3.1 (2.5-4.0cm) PWs1.7 cm Other Information Technically limited study due to pt's body habitus. <Conclusion> Normal left ventricular chamber size, systolic function and wall motion to extent visualized. Left ventricular ejection fraction estimated to be 60-65 %. Study quality precludes accurate assessment of regional wall motion. No evidence of left ventricular hypertrophy. No evidence of pericardial effusion. All other cardiac chamber sizes are within normal limits. Focal aortic valve sclerosis with adequate cusp excursion. Thickened mitral valve leaflets with normal excursion. Mitral annulus and aortic root calcification. Pulmonic valve not well visualized. Normal tricuspid valve structure. IVC at normal size with physiologic collapse. A color flow and spectral Doppler study was performed and revealed: No aortic regurgitation. Mild mitral regurgitation. Can not determine left ventricular diastolic function by mitral diastolic velocities due to atrial fibrillation. Trace to mild tricuspid regurgitation. Tricuspid systolic velocities suggests peak right ventricular systolic pressure of 32 mmHg. Trace pulmonic regurgitation present.
--- NOTE | 2020-01-05 18:23 | Cardiology Report ---
APPROVED REPORT EKG Measurement Heart [id number] <Conclusion> Atrial fibrillation Rightward axis Abnormal ECG
--- NOTE | 2020-01-05 18:59 | Infectious Diseases Prog Note ---
Assessment/Plan Assessment/Plan Full consult dictated: A) 1) covid-19 virus infection - no hypoxia 2) ? gram + bacteremia vs contaminant 3) chf/edema > cap 4) pmh noted 5) allergies - ndka P) 1) vancomycin pending blood culture identification 2) no indication for remdesivir or steroids 3) HD 4) will f/u 5) thank you Subjective Allergies: Coded Allergies: No Known Allergies (Unverified , 01/04/20) Objective Last 24 Hour Vital Signs Date Time Temp Pulse Resp B/P (MAP) Pulse Ox O2 Delivery O2 Flow Rate FiO2 01/05/20 16:00 99.6 91 19 144/78 (100) 98 01/05/20 12:00 99.5 79 19 115/75 (88) 97 01/05/20 09:00 Room Air 01/05/20 08:42 161/81 01/05/20 08:00 99.0 77 19 161/81 (107) 98 01/05/20 04:00 98.9 96 18 156/84 (108) 98 01/05/20 00:00 98.6 95 18 151/89 (109) 98 01/04/20 22:44 Room Air 01/04/20 21:00 98.9 96 20 153/76 (101) 98 Height (Feet): 5 Height (Inches): 8.00 Weight (Pounds): 224 Microbiology Date/Time Source Procedure Growth Status 01/04/20 16:00 Rectum Received 01/04/20 15:58 Blood Blood Culture - Preliminary Resulted 01/04/20 13:18 Nasopharynx SARS-CoV-2 RdRp Gene Assay - Final Complete Laboratory Tests Test 01/04/20 19:45 01/05/20 04:00 Hepatitis B Surface Antigen Pending White Blood Count 8.3 K/UL (4.8-10.8) Red Blood Count 4.38 M/UL (4.20-5.40) Hemoglobin 11.8 G/DL (12.0-16.0) L Hematocrit 37.2 % (37.0-47.0) Mean Corpuscular Volume 85 FL (80-99) Mean Corpuscular Hemoglobin 27.0 PG (27.0-31.0) Mean Corpuscular Hemoglobin Concent 31.8 G/DL (32.0-36.0) L Red Cell Distribution Width 14.1 % (11.6-14.8) Platelet Count 247 K/UL (150-450) Mean Platelet Volume 7.3 FL (6.5-10.1) Neutrophils (%) (Auto) 68.3 % (45.0-75.0) Lymphocytes (%) (Auto) 24.6 % (20.0-45.0) Monocytes (%) (Auto) 5.6 % (1.0-10.0) Eosinophils (%) (Auto) 0.6 % (0.0-3.0) Basophils (%) (Auto) 0.9 % (0.0-2.0) Sodium Level 135 MMOL/L (136-145) L Potassium Level 4.4 MMOL/L (3.5-5.1) Chloride Level 99 MMOL/L (98-107) Carbon Dioxide Level 23 MMOL/L (21-32) Anion Gap 13 mmol/L (5-15) Blood Urea Nitrogen 44 mg/dL (7-18) H Creatinine 5.5 MG/DL (0.55-1.30) H Estimat Glomerular Filtration Rate 9.3 mL/min (>60) Glucose Level 96 MG/DL (74-106) Hemoglobin A1c 6.4 % (4.3-6.0) H Calcium Level 9.3 MG/DL (8.5-10.1) # Calcium (Send out) Pending Phosphorus Level 3.8 MG/DL (2.5-4.9) Magnesium Level 2.3 MG/DL (1.8-2.4) Iron Level 35 ug/dL (50-175) L Total Iron Binding Capacity 200 ug/dL (250-450) L Percent Iron Saturation 18 % (15-50) Unsaturated Iron Binding 165 ug/dL (112-346) Triglycerides Level 58 MG/DL (30-150) Cholesterol Level 105 MG/DL (< 200) LDL Cholesterol 35 mg/dL (<100) HDL Cholesterol 53 MG/DL (40-60) Cholesterol/HDL Ratio 2.0 (3.3-4.4) L Parathyroid Hormone (Intact) Pending Current Medications Medications (Trade) Dose Ordered Sig/Aurelio Route PRN Reason Start Time Stop Time Status Last Admin Dose Admin Acetaminophen (Tylenol) 650 mg Q4H PRN ORAL Mild Pain (Pain Scale 1-3) 01/04/20 16:15 02/03/20 16:14 Acetaminophen (Tylenol) 650 mg Q4H PRN ORAL Temp >100.5 01/04/20 16:15 02/03/20 16:14 Al Hydroxide/Mg Hydroxide (Mylanta II) 30 ml Q6H PRN ORAL dyspepsia 01/04/20 16:15 02/03/20 16:14 Albuterol/ Ipratropium (Combivent Respimat) 1 puff Q4H PRN INH Shortness of Breath 01/04/20 16:15 02/03/20 16:14 Atorvastatin Calcium (Lipitor) 40 mg BEDTIME ORAL 01/04/20 21:00 04/03/20 20:59 01/04/20 21:06 Dextrose (Dextrose 50%) 25 ml Q30M PRN IV Hypoglycemia 01/04/20 16:15 04/03/20 16:14 Dextrose (Dextrose 50%) 50 ml Q30M PRN IV Hypoglycemia 01/04/20 16:15 04/03/20 16:14 Heparin Sodium (Porcine) (Heparin 5000 units/ml) 5,000 units EVERY 8 HOURS SUBQ 01/04/20 16:15 02/18/20 16:14 01/05/20 14:00 Levetiracetam (Keppra) 500 mg EVERY 12 HOURS ORAL 01/04/20 21:00 02/03/20 20:59 01/05/20 08:42 Lisinopril (PriniviL) 20 mg DAILY ORAL 01/05/20 09:00 02/04/20 08:59 01/05/20 08:42 Magnesium Hydroxide (Mom) 30 ml HSPRN PRN ORAL Constipation 01/04/20 16:15 02/03/20 16:14 Ondansetron HCl (Zofran) 4 mg Q6H PRN IVP Nausea & Vomiting 01/04/20 16:15 02/03/20 16:14 Monica Albrecht MD Jan 05, 2020 18:59
[2020-01-05 20:00] VITALS: BP 148/68
[2020-01-05] MEDS: Atorvastatin 20mg tab ORAL SCH (20:29)
[2020-01-05] MEDS ORDERED: Vancomycin 1.25gm Premix q24h IVPB SCH (21:00)
--- NOTE | 2020-01-05 23:00 | Consultation ---
DATE OF CONSULTATION: 01/05/2020 INFECTIOUS DISEASE CONSULTATION CONSULTING PHYSICIAN: Monica Albrecht MD ATTENDING PHYSICIAN: Chichi Velasco MD REFERRING PHYSICIAN: Chichi Velasco MD REASON FOR CONSULTATION: Gram-positive bacteremia, possible community-acquired pneumonia, COVID-19 infection, fevers. CHIEF COMPLAINT: Patient's chief complaint coming to the hospital is COVID-19 infection, missed dialysis, possible CHF, edema versus pneumonia. HISTORY OF PRESENT ILLNESS: This is a very pleasant pleasant 69-year-old female who has a history of end-stage renal disease on dialysis. Patient has not been feeling well and has had cough, congestion, and fevers. Patient has shortness of breath. I believe patient also missed dialysis. Patient comes to [facility] and is tested for COVID and was positive. She has low-grade fevers. Workup shows that she has gram-positive blood. She does not have a hemodialysis line. She has a right arm graft. Patient does have low-grade fevers of 99.6, which is elevated for a dialysis patient. Again COVID testing was positive by nasopharyngeal rapid testing. Chest x-ray shows infiltrates versus edema or pneumonia versus edema. Infectious Disease consultation is requested for antibiotic management. Because patient has positive blood cultures with gram-positive organisms, patient is on Vanco. No indication for remdesivir or steroids. Saturations are 98% on room air. MAR was noted. Orders were noted. Notes and records were reviewed. Case discussed with RN. Patient is in COVID isolation. Proper PPEs are worn. REVIEW OF SYSTEMS: CONSTITUTIONAL: She has generalized symptoms including not feeling well, weakness, fevers, cough, shortness of breath. Myalgias. As discussed, she came in with fevers. She has low-grade fevers. No chills or night sweats or weight loss mentioned. HEAD AND NECK: No head pain or neck pain. No headache, neck stiffness, thrush, or dysphagia. CARDIAC: No chest pain or palpitations. GASTROINTESTINAL: She did have some intermittent nausea, vomiting, abdominal discomfort also. GENITOURINARY: She has hemodialysis. She has a right arm graft. No Childress. No CVA tenderness. PULMONARY: She has mild cough, congestion, shortness of breath, and weakness. SKIN: No rash or itching. EXTREMITIES: No extremity pain. MUSCULOSKELETAL: She also had myalgias. No joint pain. No leg pain. NEUROLOGIC: No seizures. Generalized fatigue. No new focal changes. PAST MEDICAL HISTORY: Patient has a past medical history of end-stage renal disease on hemodialysis. She has history of hypertension, diabetes. She has history of dyslipidemia, hyperlipidemia. She has a history of questionable seizure disorder. She has history of anemia, hyperglycemia, and obesity. ALLERGIES: She has no known drug allergies. No antibiotic allergies. SOCIAL HISTORY: Negative for smoking, alcohol, or drug use. FAMILY HISTORY: Noncontributory. Negative for tuberculosis or cancer. MEDICATIONS: Upon reviewing the MAR, she is on following medications. She is on lisinopril, abx, ivf, atorvastatin, Vanco, albuterol, IV fluids, Zofran, magnesium hydroxide, acetaminophen p.r.n. outside medications noted and reconciliated. PHYSICAL EXAMINATION: VITAL SIGNS: Patient does have low-grade fevers of 99.6, pulse rate 91, respiratory rate 19, blood pressure 144/78, saturation 98% on room air. GENERAL: Weak. Opens her eyes. Alert. No acute distress. HEAD AND NECK: Oral exam, no thrush. Eye exam, no icterus. Normocephalic. Neck is supple. No JVD. HEART: Regular. No gallop or murmur. No friction rub. ABDOMEN: Soft. Positive bowel sounds. Nontender. LUNGS: Few bilateral rhonchi and crackles. Questionable rales at bases. SKIN: No rash or dermatitis. MUSCULOSKELETAL: No septic arthritis. No joint pain or contractures. Legs without cellulitis. PERIPHERAL VASCULAR: No gangrene or cyanosis. LINE SITES: Without phlebitis. EXTREMITIES: She has some edema. GENITOURINARY: No Childress. She has right arm graft. NEUROLOGIC: Intact. Nonfocal. She is alert, oriented. LABORATORY DATA: The patient's white count 8.3, hemoglobin 11.8. Creatinine 5.5. Cultures, blood cultures has gram-positive organisms, gram-positive cocci in clusters in one bottle, identification is pending. SARS testing nasopharyngeal rapid testing is positive. IMAGING STUDIES: Chest x-ray shows bilateral infiltrates versus edema. ASSESSMENT AND PLAN: 1. Patient has gram-positive blood cultures, rule out gram-positive bacteremia versus contaminant. Patient also has possible community-acquired pneumonia, more likely this is edema. Patient has fevers. Patient has COVID-19 virus infection with likely fevers and respiratory symptoms with cough and congestion. She also could have COVID-19 infection with pneumonia. At this time, saturation is 98% on room air. There is no indication for remdesivir or steroids currently. With regards to the CHF versus edema, patient will need hemodialysis. We will monitor chest x-ray closely. Monitor fevers. She does have gram-positive cocci in clusters in the blood, unclear contaminant versus pathogen. Rule out bacteremia. She does have a right arm graft. At this time, we will continue vancomycin empirically for gram-positive coverage. Continue vancomycin for possible gram-positive bacteremia. Check cultures, blood cultures, laboratories, surveillance blood cultures. Monitor patient's chest x-ray. Again, no indication elsa remdesivir or steroids for COVID infection. Continue isolation for now. Monitor chest x-ray to rule out community-acquired pneumonia, again more likely edema since she did miss dialysis. Continue vancomycin pending workup. 2. Patient has end-stage renal disease, on hemodialysis. 3. Diabetes. 4. Hypertension. 5. Diabetes and hypertension treatment per primary care team. 6. Dyslipidemia. 7. Question of seizure disorder. 8. Anemia. 9. Obesity. 10. Continue treatment per primary consultants. 11. No known drug allergies. 12. Social history is negative. 13. Family history noncontributory. 14. MAR was noted. 15. Case was discussed with RN. 16. Continue treatment per primary consultants. Monica Albrecht M.D. DR: WHIT JOB#: [id number] CC: EVELIA
--- NOTE | 2020-01-05 23:51 | General Progress Note ---
Subjective Constitutional: Denies: chills, fever HEENT: Denies: eye pain, ear pain, throat pain, throat swelling Cardiovascular: Denies: chest pain, edema, irregular heart rate, lightheadedness Respiratory: Denies: cough, orthopnea Gastrointestinal/Abdominal: Denies: abdomen distended, abdominal pain, constipated, diarrhea Genitourinary: Denies: burning, hematuria Neurologic/Psychiatric: Denies: headache, numbness, paresthesia Endocrine: Denies: intolerance to cold, intolerance to heat Hematologic/Lymphatic: Denies: anemia, easy bleeding Allergies: Coded Allergies: No Known Allergies (Unverified , 01/04/20) Subjective No acute events overnight. Patient states she is generally feeling well today. Reports mild SOB, otherwise, no significant complaints. Denies fever, chills, headache. Objective Last 24 Hour Vital Signs Date Time Temp Pulse Resp B/P (MAP) Pulse Ox O2 Delivery O2 Flow Rate FiO2 01/05/20 21:33 Room Air 01/05/20 21:16 99.0 01/05/20 20:00 100.4 92 20 148/68 (94) 95 01/05/20 16:00 99.6 91 19 144/78 (100) 98 01/05/20 12:00 99.5 79 19 115/75 (88) 97 01/05/20 09:00 Room Air 01/05/20 08:42 161/81 01/05/20 08:00 99.0 77 19 161/81 (107) 98 01/05/20 04:00 98.9 96 18 156/84 (108) 98 01/05/20 00:00 98.6 95 18 151/89 (109) 98 Intake and Output 01/04/20 01/05/20 19:00 07:00 Intake Total 150 ml Output Total 2000 ml Balance -1850 ml Intake Oral 150 ml Output Hemodialysis UF 2000 ml # Voids 1 2 Laboratory Tests 01/05/20 04:00: White Blood Count 8.3, Red Blood Count 4.38, Hemoglobin 11.8L, Hematocrit 37.2, Mean Corpuscular Volume 85, Mean Corpuscular Hemoglobin 27.0, Mean Corpuscular Hemoglobin Concent 31.8L, Red Cell Distribution Width 14.1, Platelet Count 247, Mean Platelet Volume 7.3, Neutrophils (%) (Auto) 68.3, Lymphocytes (%) (Auto) 24.6, Monocytes (%) (Auto) 5.6, Eosinophils (%) (Auto) 0.6, Basophils (%) (Auto) 0.9, Sodium Level 135L, Potassium Level 4.4, Chloride Level 99, Carbon Dioxide Level 23, Anion Gap 13, Blood Urea Nitrogen 44H, Creatinine 5.5H, Estimat Glomerular Filtration Rate 9.3, Glucose Level 96, Hemoglobin A1c 6.4H, Calcium Level 9.3#, Calcium (Send out) [Pending], Phosphorus Level 3.8, Magnesium Level 2.3, Iron Level 35L, Total Iron Binding Capacity 200L, Percent Iron Saturation 18, Unsaturated Iron Binding 165, Triglycerides Level 58, Cholesterol Level 105, LDL Cholesterol 35, HDL Cholesterol 53, Cholesterol/HDL Ratio 2.0L, Parathyroid Hormone (Intact) [Pending] Height (Feet): 5 Height (Inches): 8.00 Weight (Pounds): 224 General Appearance: WD/WN, no apparent distress, alert EENT: PERRL/EOMI, pharynx normal Neck: non-tender, normal alignment, supple, normal inspection Cardiovascular: normal peripheral pulses, normal rate, regular rhythm, no gallop/murmur Respiratory/Chest: chest wall non-tender, lungs clear, normal breath sounds, no respiratory distress, no accessory muscle use Abdomen: normal bowel sounds, non tender, soft, no organomegaly, no mass Extremities: normal range of motion, non-tender, normal inspection Edema: no edema noted Arm (L), no edema noted Arm (R), no edema noted Leg (L), no edema noted Leg (R) Neurologic: gta II-XII grossly normal, alert, responsive, normal mood/affect Skin: normal pigmentation, warm/dry Assessment/Plan Assessment/Plan: A: # Positive Covid infection # ESRD on hemodialysis # Hyperkalemia # ?Seizure disorder # Hypertension # ?Type 2 diabetes mellitus # Hyperlipidemia # Anemia of ESRD # Hyperglycemia # Obesity class I P: Hemodynamically stable Saturating well on room air, monitor for increased O2 support Keep saturation O2 greater than 92% DuoNebs as needed Add dexamethasone if saturation drops less than 94% - TTE reassuring, normal EF chest x-ray showing bilateral infiltrates vs edema Follow-up inflammatory markers i.e. ferritin, LDH, D-dimer, troponin, CRP We will continue home lisinopril 20 mg daily, atorvastatin 40 mg daily Continue home Keppra 500 mg twice daily that was on her med rec, although patient is not able to clarify if she has a seizure disorder or not - f/u a1c, iron studies, lipid panel Consult Dr. Page, pulm, recs appreciated Consult Dr. Velasco, nephrology, recs appreciated -Consult Dr. Dai, ID, recs appreciated CODE: Full GI: None Diet: Regular DVT prophylaxis: Heparin 5000 units 3 times daily Dispo: Pending stabilization of Covid infection Time spent on this encounter was 31 minutes which included 16 minutes of c ounseling and care coordination. I discussed with the nurse at bedside. Time of note may not reflect time patient was seen. Chip Hernandez M.D. Jan 05, 2020 23:51
[2020-01-06] VITALS: BP 117/87
[2020-01-06 04:00] VITALS: BP 143/97
[2020-01-06] MEDS: Heparin 5000 units/ml inj SUBQ SCH ×3 (05:03→22:06)
[2020-01-06 08:00] VITALS: BP 130/55
[2020-01-06] MEDS: Lisinopril 20mg tab ORAL SCH (08:26)
[2020-01-06 09:40] LABS: BASOPHILS % (AUTO) 0.8 % (0.0-2.0); EOSINOPHILS % (AUTO) 0.9 % (0.0-3.0); HEMATOCRIT 33.6 % (37.0-47.0); HEMOGLOBIN 10.7 G/DL (12.0-16.0); LYMPHOCYTES % (AUTO) 23.1 % (20.0-45.0); MEAN CORPUSCULAR VOLUME 85 FL (80-99); MONOCYTES % (AUTO) 6.2 % (1.0-10.0); PLATELET COUNT 233 K/UL (150-450); RED BLOOD COUNT 3.95 M/UL (4.20-5.40); RED CELL DISTRIBUTION WIDTH 13.8 % (11.6-14.8); WHITE BLOOD COUNT 6.9 K/UL (4.8-10.8)
--- NOTE | 2020-01-06 09:42 | Pulmonology Progress Note ---
Subjective ROS Limited/Unobtainable: No Interval Events: None new reported Constitutional: Reports: no symptoms HEENT: Repors: no symptoms Respiratory: Reports: no symptoms Cardiovascular: Reports: no symptoms Gastrointestinal/Abdominal: Reports: no symptoms Allergies: Coded Allergies: No Known Allergies (Unverified , 01/04/20) Objective Last 24 Hour Vital Signs Date Time Temp Pulse Resp B/P (MAP) Pulse Ox O2 Delivery O2 Flow Rate FiO2 01/06/20 04:00 98.2 87 18 143/97 (112) 96 87 01/06/20 00:00 98.2 83 18 117/87 (97) 01/05/20 21:33 Room Air 01/05/20 21:16 99.0 01/05/20 20:00 100.4 92 20 148/68 (94) 95 01/05/20 16:00 99.6 91 19 144/78 (100) 98 01/05/20 12:00 99.5 79 19 115/75 (88) 97 Intake and Output 01/05/20 01/06/20 19:00 07:00 Intake Total 120 ml Balance 120 ml Intake Oral 120 ml # Voids 1 1 General Appearance: no acute distress HEENT: normocephalic Respiratory: chest wall non-tender, lungs clear Cardiovascular: normal peripheral pulses Abdomen: normal bowel sounds Microbiology Date/Time Source Procedure Growth Status 01/04/20 16:00 Rectum Received 01/04/20 15:58 Blood Blood Culture - Preliminary Resulted 01/04/20 13:18 Nasopharynx SARS-CoV-2 RdRp Gene Assay - Final Complete Laboratory Tests 01/06/20 09:25: White Blood Count [Pending], Red Blood Count [Pending], Hemoglobin [Pending], Hematocrit [Pending], Mean Corpuscular Volume [Pending], Mean Corpuscular Hemoglobin [Pending], Mean Corpuscular Hemoglobin Concent [Pending], Red Cell Distribution Width [Pending], Platelet Count [Pending], Mean Platelet Volume [Pending], Neutrophils (%) (Auto) [Pending], Lymphocytes (%) (Auto) [Pending], Monocytes (%) (Auto) [Pending], Eosinophils (%) (Auto) [Pending], Basophils (%) (Auto) [Pending], Sodium Level [Pending], Potassium Level [Pending], Chloride Level [Pending], Carbon Dioxide Level [Pending], Blood Urea Nitrogen [Pending], Creatinine [Pending], Estimat Glomerular Filtration Rate [Pending], Glucose Level [Pending], Calcium Level [Pending], Total Bilirubin [Pending], Aspartate Amino Transf (AST/SGOT) [Pending], Alanine Aminotransferase (ALT/SGPT) [Pending], Alkaline Phosphatase [Pending], Total Protein [Pending], Albumin [Pending], Globulin [Pending] Current Medications Medications (Trade) Dose Ordered Sig/Aurelio Route PRN Reason Start Time Stop Time Status Last Admin Dose Admin Acetaminophen (Tylenol) 650 mg Q4H PRN ORAL Mild Pain (Pain Scale 1-3) 01/04/20 16:15 02/03/20 16:14 01/05/20 20:31 Acetaminophen (Tylenol) 650 mg Q4H PRN ORAL Temp >100.5 01/04/20 16:15 02/03/20 16:14 Al Hydroxide/Mg Hydroxide (Mylanta II) 30 ml Q6H PRN ORAL dyspepsia 01/04/20 16:15 02/03/20 16:14 Albuterol/ Ipratropium (Combivent Respimat) 1 puff Q4H PRN INH Shortness of Breath 01/04/20 16:15 02/03/20 16:14 Atorvastatin Calcium (Lipitor) 40 mg BEDTIME ORAL 01/04/20 21:00 04/03/20 20:59 01/05/20 20:29 Dextrose (Dextrose 50%) 25 ml Q30M PRN IV Hypoglycemia 01/04/20 16:15 04/03/20 16:14 Dextrose (Dextrose 50%) 50 ml Q30M PRN IV Hypoglycemia 01/04/20 16:15 04/03/20 16:14 Heparin Sodium (Porcine) (Heparin 5000 units/ml) 5,000 units EVERY 8 HOURS SUBQ 01/04/20 16:15 02/18/20 16:14 01/05/20 14:00 Levetiracetam (Keppra) 500 mg EVERY 12 HOURS ORAL 01/04/20 21:00 02/03/20 20:59 01/06/20 08:23 Lisinopril (PriniviL) 20 mg DAILY ORAL 01/05/20 09:00 02/04/20 08:59 01/05/20 08:42 Magnesium Hydroxide (Mom) 30 ml HSPRN PRN ORAL Constipation 01/04/20 16:15 02/03/20 16:14 Ondansetron HCl (Zofran) 4 mg Q6H PRN IVP Nausea & Vomiting 01/04/20 16:15 02/03/20 16:14 Vancomycin HCl (Vanco pharmacy to dose) 1 ea DAILY PRN MISC Per rx protocol 01/05/20 19:15 02/04/20 19:14 Assessment/Plan Assessment/Plan IMPRESSION: 1. COVID pneumonia. 2. ESRD, on dialysis. 3. Hypertension. 4. Diabetes mellitus. DISCUSSION: Currently saturating well on room air, Defer choice of Remdesivir to ID; doubt need I will follow carefully. Ana Johnson Omar Syed MD Jan 06, 2020 09:42
[2020-01-06 09:49] LABS: ALBUMIN 2.7 G/DL (3.4-5.0); ALBUMIN/GLOBULIN RATIO 0.5 (1.0-2.7); BILIRUBIN,TOTAL 0.4 MG/DL (0.2-1.0); CALCIUM 8.3 MG/DL (8.5-10.1); CREATININE 7.5 MG/DL (0.55-1.30)
--- NOTE | 2020-01-06 10:10 | General Progress Note ---
Subjective Allergies: Coded Allergies: No Known Allergies (Unverified , 01/04/20) Subjective Fever this morning to 100.4. Hemodynamically stable. Saturating well on room air. Patient still mildly SOB, laying in bed. Has not been ambulating much, except to bathroom. Denies chills, headache. Objective Last 24 Hour Vital Signs Date Time Temp Pulse Resp B/P (MAP) Pulse Ox O2 Delivery O2 Flow Rate FiO2 01/06/20 04:00 98.2 87 18 143/97 (112) 96 87 01/06/20 00:00 98.2 83 18 117/87 (97) 01/05/20 21:33 Room Air 01/05/20 21:16 99.0 01/05/20 20:00 100.4 92 20 148/68 (94) 95 01/05/20 16:00 99.6 91 19 144/78 (100) 98 01/05/20 12:00 99.5 79 19 115/75 (88) 97 Intake and Output 01/05/20 01/06/20 19:00 07:00 Intake Total 120 ml Balance 120 ml Intake Oral 120 ml # Voids 1 1 Laboratory Tests 01/06/20 09:25: White Blood Count 6.9, Red Blood Count 3.95L, Hemoglobin 10.7L, Hematocrit 33.6L , Mean Corpuscular Volume 85, Mean Corpuscular Hemoglobin 27.1, Mean Corpuscular Hemoglobin Concent 31.9L, Red Cell Distribution Width 13.8, Platelet Count 233, Mean Platelet Volume 8.3, Neutrophils (%) (Auto) 69.0, Lymphocytes (%) (Auto) 23.1, Monocytes (%) (Auto) 6.2, Eosinophils (%) (Auto) 0.9, Basophils (%) (Auto) 0.8, Sodium Level 134L, Potassium Level 5.0, Chloride Level 98, Carbon Dioxide Level 24, Anion Gap 12, Blood Urea Nitrogen 60H, Creatinine 7.5H, Estimat Glomerular Filtration Rate 6.4, Glucose Level 128H, Calcium Level 8.3L, Total Bilirubin 0.4, Aspartate Amino Transf (AST/SGOT) 21, Alanine Aminotransferase (ALT/SGPT) 14, Alkaline Phosphatase 81, Total Protein 7.7, Albumin 2.7L, Globulin 5.0, Albumin/Globulin Ratio 0.5L Height (Feet): 5 Height (Inches): 8.00 Weight (Pounds): 224 Objective General Appearance: WD/WN, no apparent distress, alert, pleasant, conversant EENT: PERRL/EOMI, pharynx normal Neck: non-tender, normal alignment, supple, normal inspection Cardiovascular: normal peripheral pulses, normal rate, regular rhythm, no gallop/murmur Respiratory/Chest: chest wall non-tender, lungs clear, normal breath sounds, no respiratory distress, no accessory muscle use Abdomen: normal bowel sounds, non tender, soft, no organomegaly, no mass Extremities: normal range of motion, non-tender, normal inspection Edema: no edema noted Arm (L), no edema noted Arm (R), no edema noted Leg (L), no edema noted Leg (R) 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 normal, alert, responsive, normal mood/affect Skin: normal pigmentation, warm/dry Assessment/Plan Assessment/Plan: A: # Positive Covid infection - now with fever # CAP # ESRD on hemodialysis # Hyperkalemia # ?Seizure disorder # Hypertension # ?Type 2 diabetes mellitus # Hyperlipidemia # Anemia of ESRD # Hyperglycemia # Obesity class I P: Hemodynamically stable, though fever this morning to 100.4 - Per ID, will treat for CAP with CTX/doxycycline Saturating well on room air, monitor for increased O2 support Keep saturation O2 greater than 92% DuoNebs as needed Add dexamethasone if saturation drops less than 94% - TTE reassuring, normal EF chest x-ray showing bilateral infiltrates vs edema Follow-up inflammatory markers i.e. ferritin, LDH, D-dimer, troponin, CRP We will continue home lisinopril 20 mg daily, atorvastatin 40 mg daily Continue home Keppra 500 mg twice daily that was on her med rec, although patient is not able to clarify if she has a seizure disorder or not - f/u a1c, iron studies, lipid panel Consult Dr. Page, pulm, recs appreciated Consult Dr. Velasco, nephrology, recs appreciated -Consult Dr. Dai, ID, recs appreciated CODE: Full GI: None Diet: Regular DVT prophylaxis: Heparin 5000 units 3 times daily Dispo: Pending stabilization of Covid infection Time spent on this encounter was 34 minutes which included 19 minutes of counseling and care coordination. I discussed with the nurse at bedside. Time of note may not reflect time patient was seen. Chip Hernandez M.D. Jan 06, 2020 10:10
--- NOTE | 2020-01-06 11:07 | Infectious Diseases Prog Note ---
Assessment/Plan Assessment/Plan A) 1) covid-19 virus infection - no hypoxia, + fevers 2) ? gram + bacteremia vs contaminant 3) chf/edema > cap 4) pmh noted 5) allergies - ndka P) 1) vancomycin pending blood culture identification, add ceftriaxone and azithromycin for cap 2) no indication for remdesivir or steroids 3) HD 4) will f/u 5) thank you Subjective Constitutional: Reports: fever HEENT: Reports: other - mild cough per patient Respiratory: Denies: shortness of breath Cardiovascular: Denies: chest pain Gastrointestinal/Abdominal: Denies: diarrhea Allergies: Coded Allergies: No Known Allergies (Unverified , 01/04/20) Objective Last 24 Hour Vital Signs Date Time Temp Pulse Resp B/P (MAP) Pulse Ox O2 Delivery O2 Flow Rate FiO2 01/06/20 08:00 100.4 85 22 130/55 (80) 85 85 01/06/20 04:00 98.2 87 18 143/97 (112) 96 87 01/06/20 00:00 98.2 83 18 117/87 (97) 01/05/20 21:33 Room Air 01/05/20 21:16 99.0 01/05/20 20:00 100.4 92 20 148/68 (94) 95 01/05/20 16:00 99.6 91 19 144/78 (100) 98 01/05/20 12:00 99.5 79 19 115/75 (88) 97 Height (Feet): 5 Height (Inches): 8.00 Weight (Pounds): 224 HEENT: normocephalic, atraumatic, anicteric Respiratory/Chest: normal breath sounds, no respiratory distress, no accessory muscle use Cardiovascular: normal rate, regular rhythm Abdomen: normal bowel sounds, soft, non tender, no organomegaly Microbiology Date/Time Source Procedure Growth Status 01/04/20 16:00 Rectum VRE Culture - Final Enterococcus Faecalis - Vre Complete 01/04/20 16:00 Rectum - Final NO CARBAPENEM-RESISTANT ENTEROBACTERI... Complete 01/04/20 16:00 Nasal Nares MRSA Culture - Final NO METHICILLIN RESISTANT STAPH AUREUS... Complete 01/04/20 15:58 Blood Blood Culture - Preliminary Resulted 01/04/20 13:18 Nasopharynx SARS-CoV-2 RdRp Gene Assay - Final Complete Laboratory Tests Test 01/06/20 09:25 White Blood Count 6.9 K/UL (4.8-10.8) Red Blood Count 3.95 M/UL (4.20-5.40) L Hemoglobin 10.7 G/DL (12.0-16.0) L Hematocrit 33.6 % (37.0-47.0) L Mean Corpuscular Volume 85 FL (80-99) Mean Corpuscular Hemoglobin 27.1 PG (27.0-31.0) Mean Corpuscular Hemoglobin Concent 31.9 G/DL (32.0-36.0) L Red Cell Distribution Width 13.8 % (11.6-14.8) Platelet Count 233 K/UL (150-450) Mean Platelet Volume 8.3 FL (6.5-10.1) Neutrophils (%) (Auto) 69.0 % (45.0-75.0) Lymphocytes (%) (Auto) 23.1 % (20.0-45.0) Monocytes (%) (Auto) 6.2 % (1.0-10.0) Eosinophils (%) (Auto) 0.9 % (0.0-3.0) Basophils (%) (Auto) 0.8 % (0.0-2.0) Sodium Level 134 MMOL/L (136-145) L Potassium Level 5.0 MMOL/L (3.5-5.1) Chloride Level 98 MMOL/L (98-107) Carbon Dioxide Level 24 MMOL/L (21-32) Anion Gap 12 mmol/L (5-15) Blood Urea Nitrogen 60 mg/dL (7-18) H Creatinine 7.5 MG/DL (0.55-1.30) H Estimat Glomerular Filtration Rate 6.4 mL/min (>60) Glucose Level 128 MG/DL (74-106) H Calcium Level 8.3 MG/DL (8.5-10.1) L Total Bilirubin 0.4 MG/DL (0.2-1.0) Aspartate Amino Transf (AST/SGOT) 21 U/L (15-37) Alanine Aminotransferase (ALT/SGPT) 14 U/L (12-78) Alkaline Phosphatase 81 U/L (46-116) Total Protein 7.7 G/DL (6.4-8.2) Albumin 2.7 G/DL (3.4-5.0) L Globulin 5.0 g/dL Albumin/Globulin Ratio 0.5 (1.0-2.7) L Current Medications Medications (Trade) Dose Ordered Sig/Aurelio Route PRN Reason Start Time Stop Time Status Last Admin Dose Admin Acetaminophen (Tylenol) 650 mg Q4H PRN ORAL Mild Pain (Pain Scale 1-3) 01/04/20 16:15 02/03/20 16:14 01/05/20 20:31 Acetaminophen (Tylenol) 650 mg Q4H PRN ORAL Temp >100.5 01/04/20 16:15 02/03/20 16:14 Al Hydroxide/Mg Hydroxide (Mylanta II) 30 ml Q6H PRN ORAL dyspepsia 01/04/20 16:15 02/03/20 16:14 Albuterol/ Ipratropium (Combivent Respimat) 1 puff Q4H PRN INH Shortness of Breath 01/04/20 16:15 02/03/20 16:14 Atorvastatin Calcium (Lipitor) 40 mg BEDTIME ORAL 01/04/20 21:00 04/03/20 20:59 01/05/20 20:29 Dextrose (Dextrose 50%) 25 ml Q30M PRN IV Hypoglycemia 01/04/20 16:15 04/03/20 16:14 Dextrose (Dextrose 50%) 50 ml Q30M PRN IV Hypoglycemia 01/04/20 16:15 04/03/20 16:14 Heparin Sodium (Porcine) (Heparin 5000 units/ml) 5,000 units EVERY 8 HOURS SUBQ 01/04/20 16:15 02/18/20 16:14 01/05/20 14:00 Levetiracetam (Keppra) 500 mg EVERY 12 HOURS ORAL 01/04/20 21:00 02/03/20 20:59 01/06/20 08:23 Lisinopril (PriniviL) 20 mg DAILY ORAL 01/05/20 09:00 02/04/20 08:59 01/05/20 08:42 Magnesium Hydroxide (Mom) 30 ml HSPRN PRN ORAL Constipation 01/04/20 16:15 02/03/20 16:14 Ondansetron HCl (Zofran) 4 mg Q6H PRN IVP Nausea & Vomiting 01/04/20 16:15 02/03/20 16:14 Vancomycin HCl (Vanco pharmacy to dose) 1 ea DAILY PRN MISC Per rx protocol 01/05/20 19:15 02/04/20 19:14 Monica Albrecht MD Jan 06, 2020 11:07
[2020-01-06 12:00] VITALS: BP 128/60
[2020-01-06] MEDS: cefTRIAXone 1 GM in D5W 50 ML IVPB SCH (12:20)
--- NOTE | 2020-01-06 13:44 | Nephrology Progress Note ---
Assessment/Plan Plan # Positive Covid infection # ESRD on hemodialysis # Hyperkalemia # ?Seizure disorder # Hypertension # ?Type 2 diabetes mellitus # Hyperlipidemia # Anemia of ESRD # Hyperglycemia # Obesity class I - HD today - antibiotics per ID- doxy and ceftriaxone - monitor bmp - pulm and ID eval - consider dexa - continue lisinopril 20mg daily - continue keppra - check pTH vitamin D - check iron panel Subjective ROS Limited/Unobtainable: No Constitutional: Reports: weakness HEENT: Denies: no symptoms, eye pain, blurred vision, tearing, double vision, ear pain, ear discharge, nose pain, nose congestion, throat pain, throat swelling, mouth pain, mouth swelling, other Genitourinary: Denies: no symptoms, burning, discharge, frequency, flank pain, hematuria, incontinence, pain, urgency, other Neurologic/Psychiatric: Denies: no symptoms, anxiety, depressed, emotional problems, headache, numbness, paresthesia, pre-existing deficit, seizure, tingling, tremors, weakness, other Subjective feeling ok febrile no cp or SOB Objective Objective Last 24 Hour Vital Signs Date Time Temp Pulse Resp B/P (MAP) Pulse Ox O2 Delivery O2 Flow Rate FiO2 01/06/20 12:00 99.7 82 21 128/60 (82) 97 01/06/20 09:00 Room Air 01/06/20 08:00 100.4 85 22 130/55 (80) 85 85 01/06/20 04:00 98.2 87 18 143/97 (112) 96 87 01/06/20 00:00 98.2 83 18 117/87 (97) 01/05/20 21:33 Room Air 01/05/20 21:16 99.0 01/05/20 20:00 100.4 92 20 148/68 (94) 95 01/05/20 16:00 99.6 91 19 144/78 (100) 98 Intake and Output 01/05/20 01/06/20 19:00 07:00 Intake Total 120 ml Balance 120 ml Intake Oral 120 ml # Voids 1 1 Laboratory Tests 01/06/20 09:25: White Blood Count 6.9, Red Blood Count 3.95L, Hemoglobin 10.7L, Hematocrit 33.6L , Mean Corpuscular Volume 85, Mean Corpuscular Hemoglobin 27.1, Mean Corpuscular Hemoglobin Concent 31.9L, Red Cell Distribution Width 13.8, Platelet Count 233, Mean Platelet Volume 8.3, Neutrophils (%) (Auto) 69.0, Lymphocytes (%) (Auto) 23.1, Monocytes (%) (Auto) 6.2, Eosinophils (%) (Auto) 0.9, Basophils (%) (Auto) 0.8, Sodium Level 134L, Potassium Level 5.0, Chloride Level 98, Carbon Dioxide Level 24, Anion Gap 12, Blood Urea Nitrogen 60H, Creatinine 7.5H, Estimat Glomerular Filtration Rate 6.4, Glucose Level 128H, Calcium Level 8.3L, Total Bilirubin 0.4, Aspartate Amino Transf (AST/SGOT) 21, Alanine Aminotransferase (ALT/SGPT) 14, Alkaline Phosphatase 81, Total Protein 7.7, Albumin 2.7L, Globulin 5.0, Albumin/Globulin Ratio 0.5L Height (Feet): 5 Height (Inches): 8.00 Weight (Pounds): 224 Chichi Velasco M.D. Jan 06, 2020 13:44
--- NOTE | 2020-01-06 14:00 | Diagnostic Imaging Report ---
Indication: Shortness of breath Technique: One view of the chest Comparison: 01/04/2020 Findings: The heart is enlarged. Bilateral interstitial and airspace disease is unchanged. Pleural spaces are grossly clear. Findings are unchanged Impression: Negative
[2020-01-06] MEDS ORDERED: LANTUS SOL100 UNIT/1 SUBQ (14:23)
[2020-01-06] MEDS ORDERED: VITAMIN D350 MCG PO (14:23)
[2020-01-06] MEDS ORDERED: NEPHROVITE1 TAB ORAL (14:23)
[2020-01-06] MEDS ORDERED: NOVOLOG100 UNITS1 SUBQ ×2 (14:23)
[2020-01-06] MEDS ORDERED: BISACODYL10 M1 RC (14:23)
[2020-01-06] MEDS ORDERED: LIDOCAINE30 GM TP (14:23)
[2020-01-06 16:00] VITALS: BP 167/95
--- NOTE | 2020-01-06 16:09 | Surgery Progress Note ---
Surgery Progress Note Subjective Symptoms: improved, tolerating diet, passing flatus, BM Objective Last 24 Hour Vital Signs Date Time Temp Pulse Resp B/P (MAP) Pulse Ox O2 Delivery O2 Flow Rate FiO2 01/06/20 12:00 99.7 82 21 128/60 (82) 97 01/06/20 09:00 Room Air 01/06/20 08:00 100.4 85 22 130/55 (80) 85 85 01/06/20 04:00 98.2 87 18 143/97 (112) 96 87 01/06/20 00:00 98.2 83 18 117/87 (97) 01/05/20 21:33 Room Air 01/05/20 21:16 99.0 01/05/20 20:00 100.4 92 20 148/68 (94) 95 I&O Intake and Output 01/05/20 01/06/20 19:00 07:00 Intake Total 120 ml Balance 120 ml Intake Oral 120 ml # Voids 1 1 Dressing: saturated Wound: clean Cardiovascular: RSR Respiratory: decreased breath sounds Abdomen: non-tender, present bowel sounds Extremities: no edema, no tenderness, no cyanosis Laboratory Tests Test 01/06/20 09:25 White Blood Count 6.9 K/UL (4.8-10.8) Red Blood Count 3.95 M/UL (4.20-5.40) L Hemoglobin 10.7 G/DL (12.0-16.0) L Hematocrit 33.6 % (37.0-47.0) L Mean Corpuscular Volume 85 FL (80-99) Mean Corpuscular Hemoglobin 27.1 PG (27.0-31.0) Mean Corpuscular Hemoglobin Concent 31.9 G/DL (32.0-36.0) L Red Cell Distribution Width 13.8 % (11.6-14.8) Platelet Count 233 K/UL (150-450) Mean Platelet Volume 8.3 FL (6.5-10.1) Neutrophils (%) (Auto) 69.0 % (45.0-75.0) Lymphocytes (%) (Auto) 23.1 % (20.0-45.0) Monocytes (%) (Auto) 6.2 % (1.0-10.0) Eosinophils (%) (Auto) 0.9 % (0.0-3.0) Basophils (%) (Auto) 0.8 % (0.0-2.0) Sodium Level 134 MMOL/L (136-145) L Potassium Level 5.0 MMOL/L (3.5-5.1) Chloride Level 98 MMOL/L (98-107) Carbon Dioxide Level 24 MMOL/L (21-32) Anion Gap 12 mmol/L (5-15) Blood Urea Nitrogen 60 mg/dL (7-18) H Creatinine 7.5 MG/DL (0.55-1.30) H Estimat Glomerular Filtration Rate 6.4 mL/min (>60) Glucose Level 128 MG/DL (74-106) H Calcium Level 8.3 MG/DL (8.5-10.1) L Total Bilirubin 0.4 MG/DL (0.2-1.0) Aspartate Amino Transf (AST/SGOT) 21 U/L (15-37) Alanine Aminotransferase (ALT/SGPT) 14 U/L (12-78) Alkaline Phosphatase 81 U/L (46-116) Total Protein 7.7 G/DL (6.4-8.2) Albumin 2.7 G/DL (3.4-5.0) L Globulin 5.0 g/dL Albumin/Globulin Ratio 0.5 (1.0-2.7) L Plan Problems: (1) ESRD (end stage renal disease) on dialysis (2) COVID-19 Assessment & Plan: as per ID (3) Abdominal discomfort Assessment & Plan: Six 9-year-old female complaint abdominal discomfort after missing dialysis. Intermittent nausea no emesis. Passing flatus having bowel movements. Labs noted no leukocytosis H&H noted on examination abdomen obese soft nondistended nontender bowel sounds are positive. Likely abdominal cramping no acute abdominal process identified. No need further imaging right now. Will follow with serial abdominal examinations. Continue diet as tolerated. Will follow with recommendations thank you for letting participate patient's care Tomás Melissa Jan 06, 2020 16:09
[2020-01-06 20:00] VITALS: BP 149/111
[2020-01-06] MEDS: Atorvastatin 20mg tab ORAL SCH (22:02)
[2020-01-06] MEDS ORDERED: Vancomycin 1.25gm Premix q24h IVPB SCH (23:00)
[2020-01-07] VITALS: BP 134/102
[2020-01-07 04:00] VITALS: BP 145/107
[2020-01-07] MEDS: Heparin 5000 units/ml inj SUBQ SCH ×3 (06:24→21:42)
[2020-01-07 08:00] VITALS: BP 121/57
--- NOTE | 2020-01-07 09:06 | Pulmonology Progress Note ---
Subjective ROS Limited/Unobtainable: No Interval Events: None new reported Constitutional: Reports: fever HEENT: Repors: no symptoms Respiratory: Reports: no symptoms Cardiovascular: Reports: no symptoms Gastrointestinal/Abdominal: Denies: diarrhea Allergies: Coded Allergies: No Known Allergies (Unverified , 01/04/20) Objective Last 24 Hour Vital Signs Date Time Temp Pulse Resp B/P (MAP) Pulse Ox O2 Delivery O2 Flow Rate FiO2 01/07/20 08:00 98.1 81 18 121/57 (78) 97 01/07/20 04:00 98.6 80 18 145/107 (120) 96 01/07/20 00:45 98.7 01/07/20 00:30 98.7 01/07/20 00:00 100.6 111 18 134/102 (113) 94 01/06/20 21:00 Room Air 01/06/20 20:00 98.1 106 18 149/111 (124) 97 01/06/20 16:00 100.0 93 18 167/95 (119) 97 01/06/20 12:00 99.7 82 21 128/60 (82) 97 Intake and Output 01/06/20 01/07/20 19:00 07:00 Intake Total 118 ml Balance 118 ml Other 118 ml # Voids 2 1 General Appearance: no acute distress HEENT: normocephalic Respiratory: chest wall non-tender, lungs clear Cardiovascular: normal peripheral pulses Abdomen: normal bowel sounds Microbiology Date/Time Source Procedure Growth Status 01/04/20 16:00 Rectum VRE Culture - Final Enterococcus Faecalis - Vre Complete 01/04/20 16:00 Rectum - Final NO CARBAPENEM-RESISTANT ENTEROBACTERI... Complete 01/04/20 16:00 Nasal Nares MRSA Culture - Final NO METHICILLIN RESISTANT STAPH AUREUS... Complete 01/04/20 15:58 Blood Blood Culture - Final Staphylococcus Epidermidis Complete 01/04/20 15:45 Blood Blood Culture - Preliminary NO GROWTH AFTER 48 HOURS Resulted 01/04/20 13:18 Nasopharynx SARS-CoV-2 RdRp Gene Assay - Final Complete Laboratory Tests 01/06/20 09:25: White Blood Count 6.9, Red Blood Count 3.95L, Hemoglobin 10.7L, Hematocrit 33.6L , Mean Corpuscular Volume 85, Mean Corpuscular Hemoglobin 27.1, Mean Corpuscular Hemoglobin Concent 31.9L, Red Cell Distribution Width 13.8, Platelet Count 233, Mean Platelet Volume 8.3, Neutrophils (%) (Auto) 69.0, Lymphocytes (%) (Auto) 23.1, Monocytes (%) (Auto) 6.2, Eosinophils (%) (Auto) 0.9, Basophils (%) (Auto) 0.8, Sodium Level 134L, Potassium Level 5.0, Chloride Level 98, Carbon Dioxide Level 24, Anion Gap 12, Blood Urea Nitrogen 60H, Creatinine 7.5H, Estimat Glomerular Filtration Rate 6.4, Glucose Level 128H, Calcium Level 8.3L, Total Bilirubin 0.4, Aspartate Amino Transf (AST/SGOT) 21, Alanine Aminotransferase (ALT/SGPT) 14, Alkaline Phosphatase 81, Total Protein 7.7, Albumin 2.7L, Globulin 5.0, Albumin/Globulin Ratio 0.5L 01/06/20 20:45: Random Vancomycin Level 0.5 Current Medications Medications (Trade) Dose Ordered Sig/Aurelio Route PRN Reason Start Time Stop Time Status Last Admin Dose Admin Acetaminophen (Tylenol) 650 mg Q4H PRN ORAL Mild Pain (Pain Scale 1-3) 01/04/20 16:15 02/03/20 16:14 01/06/20 13:06 Acetaminophen (Tylenol) 650 mg Q4H PRN ORAL Temp >100.5 01/04/20 16:15 02/03/20 16:14 01/06/20 23:29 Al Hydroxide/Mg Hydroxide (Mylanta II) 30 ml Q6H PRN ORAL dyspepsia 01/04/20 16:15 02/03/20 16:14 Albuterol/ Ipratropium (Combivent Respimat) 1 puff Q4H PRN INH Shortness of Breath 01/04/20 16:15 02/03/20 16:14 Atorvastatin Calcium (Lipitor) 40 mg BEDTIME ORAL 01/04/20 21:00 04/03/20 20:59 01/06/20 22:02 Ceftriaxone Sodium 1 gm/ Dextrose 50 ml @ 100 mls/hr Q24H IVPB 01/06/20 11:15 01/13/20 11:14 01/06/20 12:20 Dextrose (Dextrose 50%) 25 ml Q30M PRN IV Hypoglycemia 01/04/20 16:15 04/03/20 16:14 Dextrose (Dextrose 50%) 50 ml Q30M PRN IV Hypoglycemia 01/04/20 16:15 04/03/20 16:14 Doxycycline Hyclate 100 mg/ Dextrose 100 ml @ 100 mls/hr Q12HR IV 01/06/20 21:00 01/13/20 20:59 01/06/20 22:02 Heparin Sodium (Porcine) (Heparin 5000 units/ml) 5,000 units EVERY 8 HOURS SUBQ 01/04/20 16:15 02/18/20 16:14 01/07/20 06:24 Levetiracetam (Keppra) 500 mg EVERY 12 HOURS ORAL 01/04/20 21:00 02/03/20 20:59 01/06/20 22:02 Lisinopril (PriniviL) 20 mg DAILY ORAL 01/05/20 09:00 02/04/20 08:59 01/05/20 08:42 Magnesium Hydroxide (Mom) 30 ml HSPRN PRN ORAL Constipation 01/04/20 16:15 02/03/20 16:14 Ondansetron HCl (Zofran) 4 mg Q6H PRN IVP Nausea & Vomiting 01/04/20 16:15 02/03/20 16:14 Vancomycin HCl (Vanco pharmacy to dose) 1 ea DAILY PRN MISC Per rx protocol 01/05/20 19:15 02/04/20 19:14 Assessment/Plan Assessment/Plan IMPRESSION: 1. COVID pneumonia. 2. ESRD, on dialysis. 3. Hypertension. 4. Diabetes mellitus. DISCUSSION: Currently saturating well on room air, Defer choice of Remdesivir to ID; doubt need I will follow carefully. Ana Johnson Omar Syed MD Jan 07, 2020 09:06
[2020-01-07] MEDS: Lisinopril 20mg tab ORAL SCH (09:34)
--- NOTE | 2020-01-07 09:34 | Nephrology Progress Note ---
Assessment/Plan Plan # Positive Covid infection # ESRD on hemodialysis # Hyperkalemia # ?Seizure disorder # Hypertension # ?Type 2 diabetes mellitus # Hyperlipidemia # Anemia of ESRD # Hyperglycemia # Obesity class I - HD tomorrow - antibiotics per ID- doxy and ceftriaxone - monitor bmp - pulm and ID eval - consider dexa - continue lisinopril 20mg daily - continue keppra - check pTH vitamin D - check iron panel Subjective ROS Limited/Unobtainable: No Constitutional: Denies: no symptoms, chills, diaphoresis, fever, malaise, weakness, other HEENT: Denies: no symptoms, eye pain, blurred vision, tearing, double vision, ear pain, ear discharge, nose pain, nose congestion, throat pain, throat swelling, mouth pain, mouth swelling, other Genitourinary: Denies: no symptoms, burning, discharge, frequency, flank pain, hematuria, incontinence, pain, urgency, other Neurologic/Psychiatric: Denies: no symptoms, anxiety, depressed, emotional problems, headache, numbness, paresthesia, pre-existing deficit, seizure, tingling, tremors, weakness, other Subjective feeling ok febrile no cp or SOB Objective Objective Last 24 Hour Vital Signs Date Time Temp Pulse Resp B/P (MAP) Pulse Ox O2 Delivery O2 Flow Rate FiO2 01/07/20 08:00 98.1 81 18 121/57 (78) 97 01/07/20 04:00 98.6 80 18 145/107 (120) 96 01/07/20 00:45 98.7 01/07/20 00:30 98.7 01/07/20 00:00 100.6 111 18 134/102 (113) 94 01/06/20 21:00 Room Air 01/06/20 20:00 98.1 106 18 149/111 (124) 97 01/06/20 16:00 100.0 93 18 167/95 (119) 97 01/06/20 12:00 99.7 82 21 128/60 (82) 97 Intake and Output 01/06/20 01/07/20 19:00 07:00 Intake Total 118 ml Balance 118 ml Other 118 ml # Voids 2 1 Laboratory Tests 01/06/20 20:45: Random Vancomycin Level 0.5 Height (Feet): 5 Height (Inches): 8.00 Weight (Pounds): 224 Pirouz,Aslan M.D. Jan 07, 2020 09:34
[2020-01-07 11:28] LABS: BASOPHILS % (AUTO) 1.3 % (0.0-2.0); EOSINOPHILS % (AUTO) 0.4 % (0.0-3.0); HEMATOCRIT 35.7 % (37.0-47.0); HEMOGLOBIN 11.3 G/DL (12.0-16.0); LYMPHOCYTES % (AUTO) 17.5 % (20.0-45.0); MEAN CORPUSCULAR VOLUME 84 FL (80-99); MONOCYTES % (AUTO) 7.2 % (1.0-10.0); NEUTROPHILS % (AUTO) 73.7 % (45.0-75.0); PLATELET COUNT 244 K/UL (150-450); RED BLOOD COUNT 4.27 M/UL (4.20-5.40); RED CELL DISTRIBUTION WIDTH 14.2 % (11.6-14.8); WHITE BLOOD COUNT 7.7 K/UL (4.8-10.8)
[2020-01-07] MEDS: cefTRIAXone 1 GM in D5W 50 ML IVPB SCH (11:41)
[2020-01-07 11:43] LABS: CREATININE 5.4 MG/DL (0.55-1.30); POTASSIUM 4.3 MMOL/L (3.5-5.1)
--- NOTE | 2020-01-07 11:57 | General Progress Note ---
Subjective Allergies: Coded Allergies: No Known Allergies (Unverified , 01/04/20) Subjective Interval events: started on CTX/doxy yesterday due to fever. Last fever at midnight / to 100.6. Hemodynamically stable. Saturating well on room air. Patient sleepy today, reports still SOB. Denies chills, headache. Objective Last 24 Hour Vital Signs Date Time Temp Pulse Resp B/P (MAP) Pulse Ox O2 Delivery O2 Flow Rate FiO2 01/07/20 09:34 121/57 01/07/20 09:00 Room Air 01/07/20 08:00 98.1 81 18 121/57 (78) 97 01/07/20 04:00 98.6 80 18 145/107 (120) 96 01/07/20 00:45 98.7 01/07/20 00:30 98.7 01/07/20 00:00 100.6 111 18 134/102 (113) 94 01/06/20 21:00 Room Air 01/06/20 20:00 98.1 106 18 149/111 (124) 97 01/06/20 16:00 100.0 93 18 167/95 (119) 97 01/06/20 12:00 99.7 82 21 128/60 (82) 97 Intake and Output 01/06/20 01/07/20 19:00 07:00 Intake Total 118 ml Output Total 2000 ml Balance -1882 ml Other 118 ml Output Hemodialysis UF 2000 ml # Voids 2 1 Laboratory Tests 01/06/20 20:45: Random Vancomycin Level 0.5 01/07/20 11:10: White Blood Count 7.7, Red Blood Count 4.27, Hemoglobin 11.3L, Hematocrit 35.7L, Mean Corpuscular Volume 84, Mean Corpuscular Hemoglobin 26.5L, Mean Corpuscular Hemoglobin Concent 31.7L, Red Cell Distribution Width 14.2, Platelet Count 244, Mean Platelet Volume 8.1, Neutrophils (%) (Auto) 73.7, Lymphocytes (%) (Auto) 17.5L, Monocytes (%) (Auto) 7.2, Eosinophils (%) (Auto) 0.4, Basophils (%) (Auto) 1.3, Sodium Level 135L, Potassium Level 4.3, Chloride Level 97L, Carbon Dioxide Level 22, Anion Gap 16H, Blood Urea Nitrogen 34H, Creatinine 5.4H, Estimat Glomerular Filtration Rate 9.6, Glucose Level 151H, Calcium Level 9.0 Height (Feet): 5 Height (Inches): 8.00 Weight (Pounds): 224 Objective General Appearance: WD/WN, no apparent distress, sleepy but conversant EENT: PERRL/EOMI, pharynx normal Neck: non-tender, normal alignment, supple, normal inspection Cardiovascular: normal peripheral pulses, normal rate, regular rhythm, no gallop/murmur Respiratory/Chest: chest wall non-tender, lungs clear, normal breath sounds, no respiratory distress, no accessory muscle use Abdomen: normal bowel sounds, non tender, soft, no organomegaly, no mass Extremities: normal range of motion, non-tender, normal inspection Edema: no edema noted Arm (L), no edema noted Arm (R), no edema noted Leg (L), no edema noted Leg (R) Neurologic: tariff counsel II-XII grossly normal, alert, responsive, normal mood/affect Skin: normal pigmentation, warm/dry Assessment/Plan Assessment/Plan: A: # Positive Covid infection - still with fever, at [place] on 01/06 # CAP # ESRD on hemodialysis # Hyperkalemia # ?Seizure disorder # Hypertension # ?Type 2 diabetes mellitus # Hyperlipidemia # Anemia of ESRD # Hyperglycemia # Obesity class I P: Hemodynamically stable, though still having fevers - Per ID, will continue to treat for CAP with CTX/doxycycline Saturating well on room air, monitor for increased O2 support Keep saturation O2 greater than 92% DuoNebs as needed Add dexamethasone if saturation drops less than 94% - TTE reassuring, normal EF chest x-ray showing bilateral infiltrates vs edema Follow-up inflammatory markers i.e. ferritin, LDH, D-dimer, troponin, CRP We will continue home lisinopril 20 mg daily, atorvastatin 40 mg daily Continue home Keppra 500 mg twice daily that was on her med rec, although patient is not able to clarify if she has a seizure disorder or not - f/u a1c, iron studies, lipid panel Consult Dr. Page, pulm, recs appreciated Consult Dr. Velasco, nephrology, recs appreciated -Consult Dr. Dai, ID, recs appreciated CODE: Full GI: None Diet: Regular DVT prophylaxis: Heparin 5000 units 3 times daily Dispo: Pending stabilization of Covid infection Time spent on this encounter was 38 minutes which included 23 minutes of counseling and care coordination. I discussed with the nurse at bedside, consulting physicians from pulmonology, nephrology, and infectious disease regarding patient's COVID-19 infection, pneumonia, antibiotic regimen, breathing status and timeline for improvement. Time of note may not reflect time patient was seen. Chip Hernandez M.D. Jan 07, 2020 11:57
[2020-01-07 12:00] VITALS: BP 118/68
[2020-01-07] MEDS ORDERED: Tubing IV Secondary IV ONE (12:57)
--- NOTE | 2020-01-07 14:29 | Infectious Diseases Prog Note ---
Assessment/Plan Assessment/Plan ASSESSMENT AND PLAN: 1. 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 Patient has end-stage renal disease, on hemodialysis. 3. Diabetes. 4. Hypertension. 5. Diabetes and hypertension treatment per primary care team. 6. Dyslipidemia. 7. Question of seizure disorder. 8. Anemia. 9. Obesity. 10. Continue treatment per primary consultants. 11. No known drug allergies. 12. Social history is negative. 13. Family history noncontributory. 14. MAR was noted. 15. Case was discussed with RN. 16. Continue treatme Subjective Constitutional: Denies: fever HEENT: Denies: congestion Respiratory: Denies: shortness of breath Cardiovascular: Denies: chest pain Gastrointestinal/Abdominal: Denies: nausea, vomiting, diarrhea Genitourinary: Reports: other - no torres, HD patient Neurologic: Denies: headache Psychiatric: Denies: depression Skin: Denies: rash Hematologic: Denies: bleeding Musculoskeletal: Denies: pain Allergies: Coded Allergies: No Known Allergies (Unverified , 01/04/20) Objective Last 24 Hour Vital Signs Date Time Temp Pulse Resp B/P (MAP) Pulse Ox O2 Delivery O2 Flow Rate FiO2 01/07/20 12:00 98.2 80 18 118/68 (85) 97 01/07/20 09:34 121/57 01/07/20 09:00 Room Air 01/07/20 08:00 98.1 81 18 121/57 (78) 97 01/07/20 04:00 98.6 80 18 145/107 (120) 96 01/07/20 00:45 98.7 01/07/20 00:30 98.7 01/07/20 00:00 100.6 111 18 134/102 (113) 94 01/06/20 21:00 Room Air 01/06/20 20:00 98.1 106 18 149/111 (124) 97 01/06/20 16:00 100.0 93 18 167/95 (119) 97 Height (Feet): 5 Height (Inches): 8.00 Weight (Pounds): 224 General Appearance: no acute distress HEENT: normocephalic, atraumatic, anicteric, mucous membranes moist Respiratory/Chest: no respiratory distress, no accessory muscle use, crackles/rales - less, rhonchi - bilaterally - less Cardiovascular: normal rate, regular rhythm, no gallop/murmur, no JVD Abdomen: normal bowel sounds, soft, non tender, no organomegaly, non distended Genitourinary: other - no torres Extremities: no cyanosis Skin: no rash 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 There are bilateral interstitial and airspace infiltrates versus edema Impression: Bilateral infiltrates versus edema. Correlate with clinical findings Chest x-ray - 01/06/20 - Procedure: XRAY Chest 1v Indication: Shortness of breath Technique: One view of the chest Comparison: 01/04/2020 Findings: The heart is enlarged. Bilateral interstitial and airspace disease is unchanged. Pleural spaces are grossly clear. Findings are unchanged Impression: Negative Microbiology Date/Time Source Procedure Growth Status 01/04/20 16:00 Rectum VRE Culture - Final Enterococcus Faecalis - Vre Complete 01/04/20 16:00 Rectum - Final NO CARBAPENEM-RESISTANT ENTEROBACTERI... Complete 01/04/20 16:00 Nasal Nares MRSA Culture - Final NO METHICILLIN RESISTANT STAPH AUREUS... Complete 01/04/20 15:58 Blood Blood Culture - Final Staphylococcus Epidermidis Complete 01/04/20 15:45 Blood Blood Culture - Preliminary NO GROWTH AFTER 48 HOURS Resulted Laboratory Tests Test 01/06/20 20:45 01/07/20 11:10 Random Vancomycin Level 0.5 ug/mL White Blood Count 7.7 K/UL (4.8-10.8) Red Blood Count 4.27 M/UL (4.20-5.40) Hemoglobin 11.3 G/DL (12.0-16.0) L Hematocrit 35.7 % (37.0-47.0) L Mean Corpuscular Volume 84 FL (80-99) Mean Corpuscular Hemoglobin 26.5 PG (27.0-31.0) L Mean Corpuscular Hemoglobin Concent 31.7 G/DL (32.0-36.0) L Red Cell Distribution Width 14.2 % (11.6-14.8) Platelet Count 244 K/UL (150-450) Mean Platelet Volume 8.1 FL (6.5-10.1) Neutrophils (%) (Auto) 73.7 % (45.0-75.0) Lymphocytes (%) (Auto) 17.5 % (20.0-45.0) L Monocytes (%) (Auto) 7.2 % (1.0-10.0) Eosinophils (%) (Auto) 0.4 % (0.0-3.0) Basophils (%) (Auto) 1.3 % (0.0-2.0) Sodium Level 135 MMOL/L (136-145) L Potassium Level 4.3 MMOL/L (3.5-5.1) Chloride Level 97 MMOL/L (98-107) L Carbon Dioxide Level 22 MMOL/L (21-32) Anion Gap 16 mmol/L (5-15) H Blood Urea Nitrogen 34 mg/dL (7-18) H Creatinine 5.4 MG/DL (0.55-1.30) H Estimat Glomerular Filtration Rate 9.6 mL/min (>60) Glucose Level 151 MG/DL (74-106) H Calcium Level 9.0 MG/DL (8.5-10.1) Current Medications Medications (Trade) Dose Ordered Sig/Aurelio Route PRN Reason Start Time Stop Time Status Last Admin Dose Admin Acetaminophen (Tylenol) 650 mg Q4H PRN ORAL Mild Pain (Pain Scale 1-3) 01/04/20 16:15 02/03/20 16:14 01/06/20 13:06 Acetaminophen (Tylenol) 650 mg Q4H PRN ORAL Temp >100.5 01/04/20 16:15 02/03/20 16:14 01/06/20 23:29 Al Hydroxide/Mg Hydroxide (Mylanta II) 30 ml Q6H PRN ORAL dyspepsia 01/04/20 16:15 02/03/20 16:14 Albuterol/ Ipratropium (Combivent Respimat) 1 puff Q4H PRN INH Shortness of Breath 01/04/20 16:15 02/03/20 16:14 Atorvastatin Calcium (Lipitor) 40 mg BEDTIME ORAL 01/04/20 21:00 04/03/20 20:59 01/06/20 22:02 Ceftriaxone Sodium 1 gm/ Dextrose 50 ml @ 100 mls/hr Q24H IVPB 01/06/20 11:15 01/13/20 11:14 01/07/20 11:41 Dextrose (Dextrose 50%) 25 ml Q30M PRN IV Hypoglycemia 01/04/20 16:15 04/03/20 16:14 Dextrose (Dextrose 50%) 50 ml Q30M PRN IV Hypoglycemia 01/04/20 16:15 04/03/20 16:14 Doxycycline Hyclate 100 mg/ Dextrose 100 ml @ 100 mls/hr Q12HR IV 01/06/20 21:00 01/13/20 20:59 01/07/20 09:35 Heparin Sodium (Porcine) (Heparin 5000 units/ml) 5,000 units EVERY 8 HOURS SUBQ 01/04/20 16:15 02/18/20 16:14 01/07/20 13:05 Levetiracetam (Keppra) 500 mg EVERY 12 HOURS ORAL 01/04/20 21:00 02/03/20 20:59 01/07/20 09:34 Lisinopril (PriniviL) 20 mg DAILY ORAL 01/05/20 09:00 02/04/20 08:59 01/07/20 09:34 Magnesium Hydroxide (Mom) 30 ml HSPRN PRN ORAL Constipation 01/04/20 16:15 02/03/20 16:14 Ondansetron HCl (Zofran) 4 mg Q6H PRN IVP Nausea & Vomiting 01/04/20 16:15 02/03/20 16:14 Vancomycin HCl (Vanco pharmacy to dose) 1 ea DAILY PRN MISC Per rx protocol 01/05/20 19:15 02/04/20 19:14 Monica Albrecht MD Jan 07, 2020 14:29
[2020-01-07 16:00] VITALS: BP 110/62
--- NOTE | 2020-01-07 18:12 | Surgery Progress Note ---
Surgery Progress Note Subjective Symptoms: improved, tolerating diet, passing flatus Objective Last 24 Hour Vital Signs Date Time Temp Pulse Resp B/P (MAP) Pulse Ox O2 Delivery O2 Flow Rate FiO2 01/07/20 16:00 98.2 81 19 110/62 (78) 95 01/07/20 12:00 98.2 80 18 118/68 (85) 97 01/07/20 09:34 121/57 01/07/20 09:00 Room Air 01/07/20 08:00 98.1 81 18 121/57 (78) 97 01/07/20 04:00 98.6 80 18 145/107 (120) 96 01/07/20 00:45 98.7 01/07/20 00:30 98.7 01/07/20 00:00 100.6 111 18 134/102 (113) 94 01/06/20 21:00 Room Air 01/06/20 20:00 98.1 106 18 149/111 (124) 97 I&O Intake and Output 01/06/20 01/07/20 19:00 07:00 Intake Total 118 ml Output Total 2000 ml Balance -1882 ml Other 118 ml Output Hemodialysis UF 2000 ml # Voids 2 1 Dressing: saturated Cardiovascular: RSR Respiratory: decreased breath sounds Abdomen: non-tender, present bowel sounds Extremities: no tenderness, no cyanosis Laboratory Tests Test 01/06/20 20:45 01/07/20 11:10 Random Vancomycin Level 0.5 ug/mL White Blood Count 7.7 K/UL (4.8-10.8) Red Blood Count 4.27 M/UL (4.20-5.40) Hemoglobin 11.3 G/DL (12.0-16.0) L Hematocrit 35.7 % (37.0-47.0) L Mean Corpuscular Volume 84 FL (80-99) Mean Corpuscular Hemoglobin 26.5 PG (27.0-31.0) L Mean Corpuscular Hemoglobin Concent 31.7 G/DL (32.0-36.0) L Red Cell Distribution Width 14.2 % (11.6-14.8) Platelet Count 244 K/UL (150-450) Mean Platelet Volume 8.1 FL (6.5-10.1) Neutrophils (%) (Auto) 73.7 % (45.0-75.0) Lymphocytes (%) (Auto) 17.5 % (20.0-45.0) L Monocytes (%) (Auto) 7.2 % (1.0-10.0) Eosinophils (%) (Auto) 0.4 % (0.0-3.0) Basophils (%) (Auto) 1.3 % (0.0-2.0) Sodium Level 135 MMOL/L (136-145) L Potassium Level 4.3 MMOL/L (3.5-5.1) Chloride Level 97 MMOL/L (98-107) L Carbon Dioxide Level 22 MMOL/L (21-32) Anion Gap 16 mmol/L (5-15) H Blood Urea Nitrogen 34 mg/dL (7-18) H Creatinine 5.4 MG/DL (0.55-1.30) H Estimat Glomerular Filtration Rate 9.6 mL/min (>60) Glucose Level 151 MG/DL (74-106) H Calcium Level 9.0 MG/DL (8.5-10.1) Plan Problems: (1) ESRD (end stage renal disease) on dialysis (2) COVID-19 Assessment & Plan: as per ID (3) Abdominal discomfort Assessment & Plan: Six 9-year-old female complaint abdominal discomfort after missing dialysis. Intermittent nausea no emesis. Passing flatus having bowel movements. Labs noted no leukocytosis H&H noted on examination abdomen obese soft nondistended nontender bowel sounds are positive. Likely abdominal cramping no acute abdominal process identified. No need further imaging right now. Will follow with serial abdominal examinations. Continue diet as tolerated. Will follow with recommendations thank you for letting participate patient's care Tomás Melissa Jan 07, 2020 18:12
[2020-01-07 20:00] VITALS: BP 140/77
[2020-01-07] MEDS: Atorvastatin 20mg tab ORAL SCH (21:40)
[2020-01-08] VITALS: BP 145/100
[2020-01-08 04:00] VITALS: BP 158/91
[2020-01-08 05:58] LABS: BASOPHILS % (AUTO) 0.7 % (0.0-2.0); EOSINOPHILS % (AUTO) 0.3 % (0.0-3.0); HEMATOCRIT 35.5 % (37.0-47.0); HEMOGLOBIN 11.2 G/DL (12.0-16.0); LYMPHOCYTES % (AUTO) 23.4 % (20.0-45.0); MEAN CORPUSCULAR VOLUME 86 FL (80-99); MONOCYTES % (AUTO) 6.9 % (1.0-10.0); NEUTROPHILS % (AUTO) 68.8 % (45.0-75.0); PLATELET COUNT 248 K/UL (150-450); RED BLOOD COUNT 4.15 M/UL (4.20-5.40); WHITE BLOOD COUNT 7.5 K/UL (4.8-10.8)
[2020-01-08] MEDS: Heparin 5000 units/ml inj SUBQ SCH ×3 (06:08→21:10)
[2020-01-08 06:43] LABS: PHOSPHORUS 5.2 MG/DL (2.5-4.9)
[2020-01-08 06:54] LABS: CALCIUM 8.6 MG/DL (8.5-10.1); CREATININE 7.1 MG/DL (0.55-1.30); POTASSIUM 4.1 MMOL/L (3.5-5.1)
[2020-01-08 08:00] VITALS: BP 127/81
[2020-01-08] MEDS: Lisinopril 20mg tab ORAL SCH (08:50)
--- NOTE | 2020-01-08 09:36 | Pulmonology Progress Note ---
Subjective ROS Limited/Unobtainable: No Interval Events: None new reported Constitutional: Denies: fever HEENT: Repors: no symptoms Respiratory: Reports: no symptoms Cardiovascular: Reports: no symptoms Gastrointestinal/Abdominal: Denies: nausea, vomiting, diarrhea Psychiatric: Denies: depression Skin: Denies: rash Musculoskeletal: Denies: pain Allergies: Coded Allergies: No Known Allergies (Unverified , 01/04/20) Objective Last 24 Hour Vital Signs Date Time Temp Pulse Resp B/P (MAP) Pulse Ox O2 Delivery O2 Flow Rate FiO2 01/08/20 08:50 127/81 01/08/20 08:00 98.2 82 20 127/81 (96) 94 01/08/20 07:47 86 18 95 Room Air 21 01/08/20 04:00 99.1 88 19 158/91 (113) 97 01/08/20 00:30 99.7 01/08/20 00:00 101.5 90 19 145/100 (115) 95 01/07/20 21:00 Room Air 01/07/20 20:00 99.1 93 19 140/77 (98) 93 01/07/20 16:00 98.2 81 19 110/62 (78) 95 01/07/20 12:00 98.2 80 18 118/68 (85) 97 Intake and Output 01/07/20 01/08/20 19:00 07:00 Intake Total 200 ml 338 ml Balance 200 ml 338 ml Intake Oral 200 ml 120 ml IV Total 100 ml Other 118 ml # Voids 2 1 General Appearance: no acute distress HEENT: normocephalic Respiratory: chest wall non-tender, lungs clear Cardiovascular: normal peripheral pulses Abdomen: normal bowel sounds Microbiology Date/Time Source Procedure Growth Status 01/06/20 09:25 Blood Blood Culture - Preliminary NO GROWTH AFTER 24 HOURS Resulted 01/06/20 09:15 Blood Blood Culture - Preliminary NO GROWTH AFTER 24 HOURS Resulted Laboratory Tests 01/07/20 11:10: White Blood Count 7.7, Red Blood Count 4.27, Hemoglobin 11.3L, Hematocrit 35.7L, Mean Corpuscular Volume 84, Mean Corpuscular Hemoglobin 26.5L, Mean Corpuscular Hemoglobin Concent 31.7L, Red Cell Distribution Width 14.2, Platelet Count 244, Mean Platelet Volume 8.1, Neutrophils (%) (Auto) 73.7, Lymphocytes (%) (Auto) 17.5L, Monocytes (%) (Auto) 7.2, Eosinophils (%) (Auto) 0.4, Basophils (%) (Auto) 1.3, Sodium Level 135L, Potassium Level 4.3, Chloride Level 97L, Carbon Dioxide Level 22, Anion Gap 16H, Blood Urea Nitrogen 34H, Creatinine 5.4H, Estimat Glomerular Filtration Rate 9.6, Glucose Level 151H, Calcium Level 9.0 01/07/20 21:00: Random Vancomycin Level 21.1 01/08/20 05:20: White Blood Count 7.5, Red Blood Count 4.15L, Hemoglobin 11.2L, Hematocrit 35.5L , Mean Corpuscular Volume 86, Mean Corpuscular Hemoglobin 27.0, Mean Corpuscular Hemoglobin Concent 31.5L, Red Cell Distribution Width 14.0, Platelet Count 248, Mean Platelet Volume 8.6, Neutrophils (%) (Auto) 68.8, Lymphocytes (%) (Auto) 23.4, Monocytes (%) (Auto) 6.9, Eosinophils (%) (Auto) 0.3, Basophils (%) (Auto) 0.7, Sodium Level 136, Potassium Level 4.1, Chloride Level 98, Carbon Dioxide Level 23, Anion Gap 15, Blood Urea Nitrogen 44H, Creatinine 7.1H, Estimat Glomerular Filtration Rate 6.9, Glucose Level 110H, Calcium Level 8.6, Phosphorus Level 5.2H, Magnesium Level 2.6H Current Medications Medications (Trade) Dose Ordered Sig/Aurelio Route PRN Reason Start Time Stop Time Status Last Admin Dose Admin Acetaminophen (Tylenol) 650 mg Q4H PRN ORAL Mild Pain (Pain Scale 1-3) 01/04/20 16:15 02/03/20 16:14 01/06/20 13:06 Acetaminophen (Tylenol) 650 mg Q4H PRN ORAL Temp >100.5 01/04/20 16:15 02/03/20 16:14 01/06/20 23:29 Al Hydroxide/Mg Hydroxide (Mylanta II) 30 ml Q6H PRN ORAL dyspepsia 01/04/20 16:15 02/03/20 16:14 Albuterol/ Ipratropium (Combivent Respimat) 1 puff Q4H PRN INH Shortness of Breath 01/04/20 16:15 02/03/20 16:14 Atorvastatin Calcium (Lipitor) 40 mg BEDTIME ORAL 01/04/20 21:00 04/03/20 20:59 01/07/20 21:40 Ceftriaxone Sodium 1 gm/ Dextrose 50 ml @ 100 mls/hr Q24H IVPB 01/06/20 11:15 01/13/20 11:14 01/07/20 11:41 Dextrose (Dextrose 50%) 25 ml Q30M PRN IV Hypoglycemia 01/04/20 16:15 04/03/20 16:14 Dextrose (Dextrose 50%) 50 ml Q30M PRN IV Hypoglycemia 01/04/20 16:15 04/03/20 16:14 Doxycycline Hyclate 100 mg/ Dextrose 100 ml @ 100 mls/hr Q12HR IV 01/06/20 21:00 01/13/20 20:59 01/07/20 21:14 Heparin Sodium (Porcine) (Heparin 5000 units/ml) 5,000 units EVERY 8 HOURS SUBQ 01/04/20 16:15 02/18/20 16:14 01/08/20 06:08 Levetiracetam (Keppra) 500 mg EVERY 12 HOURS ORAL 01/04/20 21:00 02/03/20 20:59 01/07/20 21:40 Lisinopril (PriniviL) 20 mg DAILY ORAL 01/05/20 09:00 02/04/20 08:59 01/07/20 09:34 Magnesium Hydroxide (Mom) 30 ml HSPRN PRN ORAL Constipation 01/04/20 16:15 02/03/20 16:14 Ondansetron HCl (Zofran) 4 mg Q6H PRN IVP Nausea & Vomiting 01/04/20 16:15 02/03/20 16:14 Vancomycin HCl (Vanco pharmacy to dose) 1 ea DAILY PRN MISC Per rx protocol 01/05/20 19:15 02/04/20 19:14 Assessment/Plan Assessment/Plan IMPRESSION: 1. COVID pneumonia. 2. ESRD, on dialysis. 3. Hypertension. 4. Diabetes mellitus. DISCUSSION: Currently saturating well on room air, Defer choice of Remdesivir to ID; doubt need I will follow carefully. Ana Johnson Omar Syed MD Jan 08, 2020 09:36
[2020-01-08] MEDS: cefTRIAXone 1 GM in D5W 50 ML IVPB SCH (11:15)
[2020-01-08 12:00] VITALS: BP 127/81
--- NOTE | 2020-01-08 12:40 | Nephrology Progress Note ---
Assessment/Plan Plan # Positive Covid infection # ESRD on hemodialysis # Hyperkalemia # ?Seizure disorder # Hypertension # ?Type 2 diabetes mellitus # Hyperlipidemia # Anemia of ESRD # Hyperglycemia # Obesity class I - HD tomorrow - antibiotics per ID- doxy and ceftriaxone - monitor bmp - pulm and ID eval - consider dexa - continue lisinopril 20mg daily - continue keppra - check pTH vitamin D - check iron panel Subjective ROS Limited/Unobtainable: No Subjective feeling ok febrile no cp or SOB Objective Objective Last 24 Hour Vital Signs Date Time Temp Pulse Resp B/P (MAP) Pulse Ox O2 Delivery O2 Flow Rate FiO2 01/08/20 09:00 Room Air 01/08/20 08:50 127/81 01/08/20 08:00 98.2 82 20 127/81 (96) 94 01/08/20 07:47 86 18 95 Room Air 21 01/08/20 04:00 99.1 88 19 158/91 (113) 97 01/08/20 00:30 99.7 01/08/20 00:00 101.5 90 19 145/100 (115) 95 01/07/20 21:00 Room Air 01/07/20 20:00 99.1 93 19 140/77 (98) 93 01/07/20 16:00 98.2 81 19 110/62 (78) 95 Intake and Output 01/07/20 01/08/20 19:00 07:00 Intake Total 200 ml 338 ml Balance 200 ml 338 ml Intake Oral 200 ml 120 ml IV Total 100 ml Other 118 ml # Voids 2 1 Laboratory Tests 01/07/20 21:00: Random Vancomycin Level 21.1 01/08/20 05:20: White Blood Count 7.5, Red Blood Count 4.15L, Hemoglobin 11.2L, Hematocrit 35.5L , Mean Corpuscular Volume 86, Mean Corpuscular Hemoglobin 27.0, Mean Corpuscular Hemoglobin Concent 31.5L, Red Cell Distribution Width 14.0, Platelet Count 248, Mean Platelet Volume 8.6, Neutrophils (%) (Auto) 68.8, Lymphocytes (%) (Auto) 23.4, Monocytes (%) (Auto) 6.9, Eosinophils (%) (Auto) 0.3, Basophils (%) (Auto) 0.7, Sodium Level 136, Potassium Level 4.1, Chloride Level 98, Carbon Dioxide Level 23, Anion Gap 15, Blood Urea Nitrogen 44H, Creatinine 7.1H, Estimat Glomerular Filtration Rate 6.9, Glucose Level 110H, Calcium Level 8.6, Phosp horus Level 5.2H, Magnesium Level 2.6H Height (Feet): 5 Height (Inches): 8.00 Weight (Pounds): 224 Chichi Velasco M.D. Jan 08, 2020 12:40
--- NOTE | 2020-01-08 14:41 | General Progress Note ---
Subjective Date patient seen: Jan 08, 2020 ROS Limited/Unobtainable: No Allergies: Coded Allergies: No Known Allergies (Unverified , 01/04/20) Subjective Interval events: Last fever at midnight 01/07 to 101.5. Hemodynamically stable. Saturating well on room air. Patient more awake today, feeling weak but reports stable breathing. Denies chills, headache. Objective Last 24 Hour Vital Signs Date Time Temp Pulse Resp B/P (MAP) Pulse Ox O2 Delivery O2 Flow Rate FiO2 01/08/20 12:00 98.2 82 20 127/81 (96) 94 01/08/20 09:00 Room Air 01/08/20 08:50 127/81 01/08/20 08:00 98.2 82 20 127/81 (96) 94 01/08/20 07:47 86 18 95 Room Air 21 01/08/20 04:00 99.1 88 19 158/91 (113) 97 01/08/20 00:30 99.7 01/08/20 00:00 101.5 90 19 145/100 (115) 95 01/07/20 21:00 Room Air 01/07/20 20:00 99.1 93 19 140/77 (98) 93 01/07/20 16:00 98.2 81 19 110/62 (78) 95 Intake and Output 01/07/20 01/08/20 19:00 07:00 Intake Total 200 ml 338 ml Balance 200 ml 338 ml Intake Oral 200 ml 120 ml IV Total 100 ml Other 118 ml # Voids 2 1 Laboratory Tests 01/07/20 21:00: Random Vancomycin Level 21.1 01/08/20 05:20: White Blood Count 7.5, Red Blood Count 4.15L, Hemoglobin 11.2L, Hematocrit 35.5L , Mean Corpuscular Volume 86, Mean Corpuscular Hemoglobin 27.0, Mean Corpuscular Hemoglobin Concent 31.5L, Red Cell Distribution Width 14.0, Platelet Count 248, Mean Platelet Volume 8.6, Neutrophils (%) (Auto) 68.8, Lymphocytes (%) (Auto) 23.4, Monocytes (%) (Auto) 6.9, Eosinophils (%) (Auto) 0.3, Basophils (%) (Auto) 0.7, Sodium Level 136, Potassium Level 4.1, Chloride Level 98, Carbon Dioxide Level 23, Anion Gap 15, Blood Urea Nitrogen 44H, Creatinine 7.1H, Estimat Glomerular Filtration Rate 6.9, Glucose Level 110H, Calcium Level 8.6, Phosphorus Level 5.2H, Magnesium Level 2.6H Height (Feet): 5 Height (Inches): 8.00 Weight (Pounds): 224 Objective General Appearance: WD/WN, no apparent distress, awake, conversant EENT: PERRL/EOMI, pharynx normal Neck: non-tender, normal alignment, supple, normal inspection Cardiovascular: normal peripheral pulses, normal rate, regular rhythm, no gallop/murmur Respiratory/Chest: chest wall non-tender, lungs clear, normal breath sounds, no respiratory distress, no accessory muscle use Abdomen: normal bowel sounds, non tender, soft, no organomegaly, no mass Extremities: normal range of motion, non-tender, normal inspection Edema: no edema noted Arm (L), no edema noted Arm (R), no edema noted Leg (L), no edema noted Leg (R) 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, normal mood/affect Skin: normal pigmentation, warm/dry Assessment/Plan Assessment/Plan: A: # Positive Covid infection - still with fever, at [place] on 01/07 # CAP # ESRD on hemodialysis # Hyperkalemia # ?Seizure disorder # Hypertension # ?Type 2 diabetes mellitus # Hyperlipidemia # Anemia of ESRD # Hyperglycemia # Obesity class I P: Hemodynamically stable, though still having fevers - Per ID, will continue to treat for CAP with CTX/doxycycline Saturating well on room air, monitor for increased O2 support Keep saturation O2 greater than 92% DuoNebs as needed Add dexamethasone if saturation drops less than 94% - TTE reassuring, normal EF chest x-ray showing bilateral infiltrates vs edema Follow-up inflammatory markers i.e. ferritin, LDH, D-dimer, troponin, CRP We will continue home lisinopril 20 mg daily, atorvastatin 40 mg daily Continue home Keppra 500 mg twice daily that was on her med rec, although patie nt is not able to clarify if she has a seizure disorder or not - f/u a1c, iron studies, lipid panel Consult Dr. Page, pulm, recs appreciated Consult Dr. Velasco, nephrology, recs appreciated -Consult Dr. Dai, ID, recs appreciated CODE: Full GI: None Diet: Regular DVT prophylaxis: Heparin 5000 units 3 times daily Dispo: Pending stabilization of Covid infection Time spent on this encounter was 37 minutes which included 21 minutes of counseling and care coordination. I discussed with the nurse at bedside, consulting physicians from pulmonology, nephrology, and infectious disease regarding patient's COVID-19 infection, fevers, pneumonia, antibiotic regimen, breathing status and timeline for improvement. Time of note may not reflect time patient was seen. Chip Hernandez M.D. Jan 08, 2020 14:41
--- NOTE | 2020-01-08 14:52 | Surgery Progress Note ---
Surgery Progress Note Subjective Symptoms: improved, tolerating diet, voiding well, passing flatus, BM Objective Last 24 Hour Vital Signs Date Time Temp Pulse Resp B/P (MAP) Pulse Ox O2 Delivery O2 Flow Rate FiO2 01/08/20 12:00 98.2 82 20 127/81 (96) 94 01/08/20 09:00 Room Air 01/08/20 08:50 127/81 01/08/20 08:00 98.2 82 20 127/81 (96) 94 01/08/20 07:47 86 18 95 Room Air 21 01/08/20 04:00 99.1 88 19 158/91 (113) 97 01/08/20 00:30 99.7 01/08/20 00:00 101.5 90 19 145/100 (115) 95 01/07/20 21:00 Room Air 01/07/20 20:00 99.1 93 19 140/77 (98) 93 01/07/20 16:00 98.2 81 19 110/62 (78) 95 I&O Intake and Output 01/07/20 01/08/20 19:00 07:00 Intake Total 200 ml 338 ml Balance 200 ml 338 ml Intake Oral 200 ml 120 ml IV Total 100 ml Other 118 ml # Voids 2 1 Dressing: saturated Cardiovascular: RSR Respiratory: decreased breath sounds Abdomen: non-tender, present bowel sounds Extremities: no edema, no tenderness, no cyanosis Laboratory Tests Test 01/07/20 21:00 01/08/20 05:20 Random Vancomycin Level 21.1 ug/mL White Blood Count 7.5 K/UL (4.8-10.8) Red Blood Count 4.15 M/UL (4.20-5.40) L Hemoglobin 11.2 G/DL (12.0-16.0) L Hematocrit 35.5 % (37.0-47.0) L Mean Corpuscular Volume 86 FL (80-99) Mean Corpuscular Hemoglobin 27.0 PG (27.0-31.0) Mean Corpuscular Hemoglobin Concent 31.5 G/DL (32.0-36.0) L Red Cell Distribution Width 14.0 % (11.6-14.8) Platelet Count 248 K/UL (150-450) Mean Platelet Volume 8.6 FL (6.5-10.1) Neutrophils (%) (Auto) 68.8 % (45.0-75.0) Lymphocytes (%) (Auto) 23.4 % (20.0-45.0) Monocytes (%) (Auto) 6.9 % (1.0-10.0) Eosinophils (%) (Auto) 0.3 % (0.0-3.0) Basophils (%) (Auto) 0.7 % (0.0-2.0) Sodium Level 136 MMOL/L (136-145) Potassium Level 4.1 MMOL/L (3.5-5.1) Chloride Level 98 MMOL/L (98-107) Carbon Dioxide Level 23 MMOL/L (21-32) Anion Gap 15 mmol/L (5-15) Blood Urea Nitrogen 44 mg/dL (7-18) H Creatinine 7.1 MG/DL (0.55-1.30) H Estimat Glomerular Filtration Rate 6.9 mL/min (>60) Glucose Level 110 MG/DL (74-106) H Calcium Level 8.6 MG/DL (8.5-10.1) Phosphorus Level 5.2 MG/DL (2.5-4.9) H Magnesium Level 2.6 MG/DL (1.8-2.4) H Plan Problems: (1) ESRD (end stage renal disease) on dialysis (2) COVID-19 Assessment & Plan: as per ID (3) Abdominal discomfort Assessment & Plan: Six 9-year-old female complaint abdominal discomfort after missing dialysis. Intermittent nausea no emesis. Passing flatus having bowel movements. Labs noted no leukocytosis H&H noted on examination abdomen obese soft nondistended nontender bowel sounds are positive. Likely abdominal cramping no acute abdominal process identified. No need further imaging right now. Will follow with serial abdominal examinations. Continue diet as tolerated. Will follow with recommendations thank you for letting participate patient's care Tomás Melissa Jan 08, 2020 14:51
[2020-01-08 16:00] VITALS: BP 114/44
[2020-01-08 20:00] VITALS: BP 119/51
[2020-01-08] MEDS: Atorvastatin 20mg tab ORAL SCH (21:09)
[2020-01-09] VITALS: BP 124/51
[2020-01-09 04:00] VITALS: BP 129/60
[2020-01-09] MEDS: Heparin 5000 units/ml inj SUBQ SCH ×4 (05:31→21:37)
[2020-01-09 08:00] VITALS: BP 97/49
[2020-01-09] MEDS: Lisinopril 20mg tab ORAL SCH (08:31)
[2020-01-09 08:43] LABS: BASOPHILS % (AUTO) 0.6 % (0.0-2.0); EOSINOPHILS % (AUTO) 0.1 % (0.0-3.0); HEMOGLOBIN 10.8 G/DL (12.0-16.0); MEAN CORPUSCULAR VOLUME 85 FL (80-99); MONOCYTES % (AUTO) 6.7 % (1.0-10.0); NEUTROPHILS % (AUTO) 65.6 % (45.0-75.0); PLATELET COUNT 226 K/UL (150-450); RED BLOOD COUNT 3.98 M/UL (4.20-5.40); RED CELL DISTRIBUTION WIDTH 13.9 % (11.6-14.8); WHITE BLOOD COUNT 7.5 K/UL (4.8-10.8)
[2020-01-09 08:53] LABS: CALCIUM 8.9 MG/DL (8.5-10.1); CREATININE 5.9 MG/DL (0.55-1.30); POTASSIUM 3.6 MMOL/L (3.5-5.1)
--- NOTE | 2020-01-09 11:57 | Pulmonology Progress Note ---
Subjective ROS Limited/Unobtainable: No Interval Events: None new reported Constitutional: Denies: fever HEENT: Repors: no symptoms Respiratory: Reports: no symptoms Cardiovascular: Reports: no symptoms Gastrointestinal/Abdominal: Denies: nausea, vomiting, diarrhea Psychiatric: Denies: depression Skin: Denies: rash Musculoskeletal: Denies: pain Allergies: Coded Allergies: No Known Allergies (Unverified , 01/04/20) Objective Last 24 Hour Vital Signs Date Time Temp Pulse Resp B/P (MAP) Pulse Ox O2 Delivery O2 Flow Rate FiO2 01/09/20 08:31 97/49 01/09/20 08:02 Room Air 01/09/20 08:00 99.5 74 18 97/49 (65) 97 01/09/20 07:50 78 18 96 Room Air 21 01/09/20 04:00 97.9 78 18 129/60 (83) 95 01/09/20 00:00 98.4 83 19 124/51 (75) 94 01/08/20 21:00 Room Air 01/08/20 20:00 98.1 85 17 119/51 (73) 96 01/08/20 19:08 81 18 96 Room Air 21 01/08/20 16:00 98.2 82 20 114/44 (67) 95 01/08/20 12:00 98.2 82 20 127/81 (96) 94 Intake and Output 01/08/20 01/09/20 19:00 07:00 Intake Total 480 ml 348 ml Output Total 2000 ml Balance -1520 ml 348 ml Intake Oral 480 ml 230 ml Other 118 ml Output Hemodialysis UF 2000 ml # Voids 3 # Bowel Movements 2 General Appearance: no acute distress HEENT: normocephalic Respiratory: chest wall non-tender, lungs clear Cardiovascular: normal peripheral pulses Abdomen: normal bowel sounds Laboratory Tests 01/09/20 07:35: White Blood Count 7.5, Red Blood Count 3.98L, Hemoglobin 10.8L, Hematocrit 34.0L , Mean Corpuscular Volume 85, Mean Corpuscular Hemoglobin 27.2, Mean Corpuscular Hemoglobin Concent 31.8L, Red Cell Distribution Width 13.9, Platelet Count 226, Mean Platelet Volume 8.4, Neutrophils (%) (Auto) 65.6, Lymphocytes (%) (Auto) 27.0, Monocytes (%) (Auto) 6.7, Eosinophils (%) (Auto) 0.1, Basophils (%) (Auto) 0.6, Sodium Level 136, Potassium Level 3.6, Chloride Level 98, Carbon Dioxide Level 25, Anion Gap 13, Blood Urea Nitrogen 32H, Creatinine 5.9H, Estimat Glomerular Filtration Rate 8.6, Glucose Level 135H, Calcium Level 8.9, Random Vancomycin Level 15.5 Current Medications Medications (Trade) Dose Ordered Sig/Aurelio Route PRN Reason Start Time Stop Time Status Last Admin Dose Admin Acetaminophen (Tylenol) 650 mg Q4H PRN ORAL Temp >100.5 01/04/20 16:15 02/03/20 16:14 01/06/20 23:29 Acetaminophen (Tylenol) 650 mg Q4H PRN ORAL Mild Pain (Pain Scale 1-3) 01/04/20 16:15 02/03/20 16:14 01/09/20 05:28 Al Hydroxide/Mg Hydroxide (Mylanta II) 30 ml Q6H PRN ORAL dyspepsia 01/04/20 16:15 02/03/20 16:14 Albuterol/ Ipratropium (Combivent Respimat) 1 puff Q4H PRN INH Shortness of Breath 01/04/20 16:15 02/03/20 16:14 Atorvastatin Calcium (Lipitor) 40 mg BEDTIME ORAL 01/04/20 21:00 04/03/20 20:59 01/08/20 21:09 Ceftriaxone Sodium 1 gm/ Dextrose 50 ml @ 100 mls/hr Q24H IVPB 01/06/20 11:15 01/13/20 11:14 01/08/20 11:15 Dextrose (Dextrose 50%) 25 ml Q30M PRN IV Hypoglycemia 01/04/20 16:15 04/03/20 16:14 Dextrose (Dextrose 50%) 50 ml Q30M PRN IV Hypoglycemia 01/04/20 16:15 04/03/20 16:14 Doxycycline Hyclate 100 mg/ Dextrose 100 ml @ 100 mls/hr Q12HR IV 01/06/20 21:00 01/13/20 20:59 01/09/20 08:31 Heparin Sodium (Porcine) (Heparin 5000 units/ml) 5,000 units EVERY 8 HOURS SUBQ 01/04/20 16:15 02/18/20 16:14 01/09/20 05:31 Levetiracetam (Keppra) 500 mg EVERY 12 HOURS ORAL 01/04/20 21:00 02/03/20 20:59 01/09/20 08:31 Lisinopril (PriniviL) 20 mg DAILY ORAL 01/05/20 09:00 02/04/20 08:59 01/07/20 09:34 Magnesium Hydroxide (Mom) 30 ml HSPRN PRN ORAL Constipation 01/04/20 16:15 02/03/20 16:14 Ondansetron HCl (Zofran) 4 mg Q6H PRN IVP Nausea & Vomiting 01/04/20 16:15 02/03/20 16:14 Vancomycin HCl (Vanco pharmacy to dose) 1 ea DAILY PRN MISC Per rx protocol 01/05/20 19:15 02/04/20 19:14 Vancomycin HCl 750 mg/Sodium Chloride 275 ml @ 183.333 mls/hr ONCE ONCE IVPB 01/09/20 12:00 01/09/20 13:29 Assessment/Plan Assessment/Plan IMPRESSION: 1. COVID pneumonia. 2. ESRD, on dialysis. 3. Hypertension. 4. Diabetes mellitus. DISCUSSION: Currently saturating well on room air, Defer choice of Remdesivir to ID; doubt need I will follow carefully. Ana Johnson Omar Syed MD Jan 09, 2020 11:57
[2020-01-09 12:00] VITALS: BP 97/46
[2020-01-09] MEDS: cefTRIAXone 1 GM in D5W 50 ML IVPB SCH ×2 (12:00→21:11)
[2020-01-09] MEDS ORDERED: Vancomycin 750mg/NS 275ml IVPB ONE ×2 (12:00)
--- NOTE | 2020-01-09 14:52 | Surgery Progress Note ---
Surgery Progress Note Subjective Symptoms: improved, tolerating diet, passing flatus Objective Last 24 Hour Vital Signs Date Time Temp Pulse Resp B/P (MAP) Pulse Ox O2 Delivery O2 Flow Rate FiO2 01/09/20 12:00 99.9 80 18 97/46 (63) 95 01/09/20 08:31 97/49 01/09/20 08:02 Room Air 01/09/20 08:00 99.5 74 18 97/49 (65) 97 01/09/20 07:50 78 18 96 Room Air 21 01/09/20 04:00 97.9 78 18 129/60 (83) 95 01/09/20 00:00 98.4 83 19 124/51 (75) 94 01/08/20 21:00 Room Air 01/08/20 20:00 98.1 85 17 119/51 (73) 96 01/08/20 19:08 81 18 96 Room Air 21 01/08/20 16:00 98.2 82 20 114/44 (67) 95 I&O Intake and Output 01/08/20 01/09/20 19:00 07:00 Intake Total 480 ml 348 ml Output Total 2000 ml Balance -1520 ml 348 ml Intake Oral 480 ml 230 ml Other 118 ml Output Hemodialysis UF 2000 ml # Voids 3 # Bowel Movements 2 Dressing: saturated Cardiovascular: RSR Respiratory: decreased breath sounds Abdomen: non-tender, present bowel sounds Extremities: no edema, no tenderness Laboratory Tests Test 01/09/20 07:35 White Blood Count 7.5 K/UL (4.8-10.8) Red Blood Count 3.98 M/UL (4.20-5.40) L Hemoglobin 10.8 G/DL (12.0-16.0) L Hematocrit 34.0 % (37.0-47.0) L Mean Corpuscular Volume 85 FL (80-99) Mean Corpuscular Hemoglobin 27.2 PG (27.0-31.0) Mean Corpuscular Hemoglobin Concent 31.8 G/DL (32.0-36.0) L Red Cell Distribution Width 13.9 % (11.6-14.8) Platelet Count 226 K/UL (150-450) Mean Platelet Volume 8.4 FL (6.5-10.1) Neutrophils (%) (Auto) 65.6 % (45.0-75.0) Lymphocytes (%) (Auto) 27.0 % (20.0-45.0) Monocytes (%) (Auto) 6.7 % (1.0-10.0) Eosinophils (%) (Auto) 0.1 % (0.0-3.0) Basophils (%) (Auto) 0.6 % (0.0-2.0) Sodium Level 136 MMOL/L (136-145) Potassium Level 3.6 MMOL/L (3.5-5.1) Chloride Level 98 MMOL/L (98-107) Carbon Dioxide Level 25 MMOL/L (21-32) Anion Gap 13 mmol/L (5-15) Blood Urea Nitrogen 32 mg/dL (7-18) H Creatinine 5.9 MG/DL (0.55-1.30) H Estimat Glomerular Filtration Rate 8.6 mL/min (>60) Glucose Level 135 MG/DL (74-106) H Calcium Level 8.9 MG/DL (8.5-10.1) Random Vancomycin Level 15.5 ug/mL Plan Problems: (1) ESRD (end stage renal disease) on dialysis (2) COVID-19 Assessment & Plan: as per ID (3) Abdominal discomfort Assessment & Plan: Six 9-year-old female complaint abdominal discomfort after missing dialysis. Intermittent nausea no emesis. Passing flatus having bowel movements. Labs noted no leukocytosis H&H noted on examination abdomen obese soft nondistended nontender bowel sounds are positive. Likely abdominal cramping no acute abdominal process identified. No need further imaging right now. Will follow with serial abdominal examinations. Continue diet as tolerated. Will follow with recommendations thank you for letting participate patient's care Tomás Melissa Jan 09, 2020 14:52
[2020-01-09 16:00] VITALS: BP_SYST 116; BP_SYST 95; BP_DIAS 50; BP_DIAS 72
--- NOTE | 2020-01-09 16:32 | Infectious Diseases Prog Note ---
Assessment/Plan Assessment/Plan ASSESSMENT AND PLAN: 1. covid-19 virus infection, CAP, fevers blood cultures - 2/4 [employer] HEL[employer] - likely contaminant - surveillance blood cultures negative, patient with fistula and no central line - ceftriaxone and doxycycline - day # 4 - surveillance blood cultures negative - discontinue vancomycin - no indication for steroids or remdesivir, saturations stable - monitor labs - clinically improved, fevers persist - likely secondary to covid-19 infection - f/u chest x-ray improved 2. Patient has end-stage renal disease, on hemodialysis. 3. Diabetes. 4. Hypertension. 5. Diabetes and hypertension treatment per primary care team. 6. Dyslipidemia. 7. Question of seizure disorder. 8. Anemia. 9. Obesity. 10. Continue treatment per primary consultants. 11. No known drug allergies. 12. Social history is negative. 13. Family history noncontributory. 14. MAR was noted. 15. Case was discussed with RN. 16. Continue treatme Subjective Constitutional: Reports: fever, fatigue, other - more alert HEENT: Denies: congestion Respiratory: Denies: shortness of breath Cardiovascular: Denies: chest pain Gastrointestinal/Abdominal: Denies: nausea, vomiting, diarrhea Genitourinary: Reports: other - no torres Neurologic: Denies: headache Psychiatric: Denies: depression Skin: Denies: rash Hematologic: Denies: bleeding Musculoskeletal: Denies: pain Allergies: Coded Allergies: No Known Allergies (Unverified , 01/04/20) Objective Last 24 Hour Vital Signs Date Time Temp Pulse Resp B/P (MAP) Pulse Ox O2 Delivery O2 Flow Rate FiO2 01/09/20 16:00 99.9 83 18 95/50 (65) 94 01/09/20 12:00 99.9 80 18 97/46 (63) 95 01/09/20 08:31 97/49 01/09/20 08:02 Room Air 01/09/20 08:00 99.5 74 18 97/49 (65) 97 01/09/20 07:50 78 18 96 Room Air 21 01/09/20 04:00 97.9 78 18 129/60 (83) 95 01/09/20 00:00 98.4 83 19 124/51 (75) 94 01/08/20 21:00 Room Air 01/08/20 20:00 98.1 85 17 119/51 (73) 96 01/08/20 19:08 81 18 96 Room Air 21 Height (Feet): 5 Height (Inches): 8.00 Weight (Pounds): 224 General Appearance: no acute distress HEENT: normocephalic, atraumatic, anicteric Respiratory/Chest: crackles/rales, rhonchi - bilaterally Cardiovascular: normal rate, regular rhythm, no gallop/murmur Abdomen: normal bowel sounds, soft, non tender, no organomegaly, non distended Genitourinary: other - no torres Extremities: no cyanosis Skin: no rash 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 There are bilateral interstitial and airspace infiltrates versus edema Impression: Bilateral infiltrates versus edema. Correlate with clinical findings Chest x-ray - 01/06/20 - Procedure: XRAY Chest 1v Indication: Shortness of breath Technique: One view of the chest Comparison: 01/04/2020 Findings: The heart is enlarged. Bilateral interstitial and airspace disease is unchanged. Pleural spaces are grossly clear. Findings are unchanged Impression: Negative Microbiology Date/Time Source Procedure Growth Status 01/06/20 09:25 Blood Blood Culture - Preliminary NO GROWTH AFTER 48 HOURS Resulted 01/04/20 16:00 Rectum VRE Culture - Final Enterococcus Faecalis - Vre Complete 01/04/20 16:00 Nasal Nares MRSA Culture - Final NO METHICILLIN RESISTANT STAPH AUREUS... Complete previous - bc - healthcare specialist - 2/4 bottles Laboratory Tests Test 01/09/20 07:35 White Blood Count 7.5 K/UL (4.8-10.8) Red Blood Count 3.98 M/UL (4.20-5.40) L Hemoglobin 10.8 G/DL (12.0-16.0) L Hematocrit 34.0 % (37.0-47.0) L Mean Corpuscular Volume 85 FL (80-99) Mean Corpuscular Hemoglobin 27.2 PG (27.0-31.0) Mean Corpuscular Hemoglobin Concent 31.8 G/DL (32.0-36.0) L Red Cell Distribution Width 13.9 % (11.6-14.8) Platelet Count 226 K/UL (150-450) Mean Platelet Volume 8.4 FL (6.5-10.1) Neutrophils (%) (Auto) 65.6 % (45.0-75.0) Lymphocytes (%) (Auto) 27.0 % (20.0-45.0) Monocytes (%) (Auto) 6.7 % (1.0-10.0) Eosinophils (%) (Auto) 0.1 % (0.0-3.0) Basophils (%) (Auto) 0.6 % (0.0-2.0) Sodium Level 136 MMOL/L (136-145) Potassium Level 3.6 MMOL/L (3.5-5.1) Chloride Level 98 MMOL/L (98-107) Carbon Dioxide Level 25 MMOL/L (21-32) Anion Gap 13 mmol/L (5-15) Blood Urea Nitrogen 32 mg/dL (7-18) H Creatinine 5.9 MG/DL (0.55-1.30) H Estimat Glomerular Filtration Rate 8.6 mL/min (>60) Glucose Level 135 MG/DL (74-106) H Calcium Level 8.9 MG/DL (8.5-10.1) Random Vancomycin Level 15.5 ug/mL Current Medications Medications (Trade) Dose Ordered Sig/Aurelio Route PRN Reason Start Time Stop Time Status Last Admin Dose Admin Acetaminophen (Tylenol) 650 mg Q4H PRN ORAL Temp >100.5 01/04/20 16:15 02/03/20 16:14 01/06/20 23:29 Acetaminophen (Tylenol) 650 mg Q4H PRN ORAL Mild Pain (Pain Scale 1-3) 01/04/20 16:15 02/03/20 16:14 01/09/20 05:28 Al Hydroxide/Mg Hydroxide (Mylanta II) 30 ml Q6H PRN ORAL dyspepsia 01/04/20 16:15 02/03/20 16:14 Albuterol/ Ipratropium (Combivent Respimat) 1 puff Q4H PRN INH Shortness of Breath 01/04/20 16:15 02/03/20 16:14 Atorvastatin Calcium (Lipitor) 40 mg BEDTIME ORAL 01/04/20 21:00 04/03/20 20:59 01/08/20 21:09 Ceftriaxone Sodium 1 gm/ Dextrose 50 ml @ 100 mls/hr Q24H IVPB 01/06/20 11:15 01/13/20 11:14 01/09/20 12:00 Dextrose (Dextrose 50%) 25 ml Q30M PRN IV Hypoglycemia 01/04/20 16:15 04/03/20 16:14 Dextrose (Dextrose 50%) 50 ml Q30M PRN IV Hypoglycemia 01/04/20 16:15 04/03/20 16:14 Doxycycline Hyclate 100 mg/ Dextrose 100 ml @ 100 mls/hr Q12HR IV 01/06/20 21:00 01/13/20 20:59 01/09/20 08:31 Heparin Sodium (Porcine) (Heparin 5000 units/ml) 5,000 units EVERY 8 HOURS SUBQ 01/04/20 16:15 02/18/20 16:14 01/09/20 05:31 Levetiracetam (Keppra) 500 mg EVERY 12 HOURS ORAL 01/04/20 21:00 02/03/20 20:59 01/09/20 08:31 Lisinopril (PriniviL) 20 mg DAILY ORAL 01/05/20 09:00 02/04/20 08:59 01/07/20 09:34 Magnesium Hydroxide (Mom) 30 ml HSPRN PRN ORAL Constipation 01/04/20 16:15 02/03/20 16:14 Ondansetron HCl (Zofran) 4 mg Q6H PRN IVP Nausea & Vomiting 01/04/20 16:15 02/03/20 16:14 Vancomycin HCl (Vanco pharmacy to dose) 1 ea DAILY PRN MISC Per rx protocol 01/05/20 19:15 02/04/20 19:14 Monica Albrecht MD Jan 09, 2020 16:32
[2020-01-09] MEDS ORDERED: Vancomycin 1.25gm/250ml Premix IVPB ONE (18:00)
--- NOTE | 2020-01-09 18:09 | Nephrology Progress Note ---
Assessment/Plan Plan # Positive Covid infection # ESRD on hemodialysis # Hyperkalemia # ?Seizure disorder # Hypertension # ?Type 2 diabetes mellitus # Hyperlipidemia # Anemia of ESRD # Hyperglycemia # Obesity class I - HD today - antibiotics per ID- doxy and ceftriaxone - monitor bmp - pulm and ID eval - consider dexa - continue lisinopril 20mg daily - continue keppra - check pTH vitamin D - check iron panel Subjective ROS Limited/Unobtainable: No Constitutional: Reports: weakness HEENT: Denies: no symptoms, eye pain, blurred vision, tearing, double vision, ear pain, ear discharge, nose pain, nose congestion, throat pain, throat swelling, mouth pain, mouth swelling, other Genitourinary: Denies: no symptoms, burning, discharge, frequency, flank pain, hematuria, incontinence, pain, urgency, other Neurologic/Psychiatric: Denies: no symptoms, anxiety, depressed, emotional problems, headache, numbness, paresthesia, pre-existing deficit, seizure, tingling, tremors, weakness, other Subjective feeling ok HD today no cp or SOB Objective Objective Last 24 Hour Vital Signs Date Time Temp Pulse Resp B/P (MAP) Pulse Ox O2 Delivery O2 Flow Rate FiO2 01/09/20 16:00 97.6 83 18 116/72 (87) 94 01/09/20 12:00 99.9 80 18 97/46 (63) 95 01/09/20 08:31 97/49 01/09/20 08:02 Room Air 01/09/20 08:00 99.5 74 18 97/49 (65) 97 01/09/20 07:50 78 18 96 Room Air 21 01/09/20 04:00 97.9 78 18 129/60 (83) 95 01/09/20 00:00 98.4 83 19 124/51 (75) 94 01/08/20 21:00 Room Air 01/08/20 20:00 98.1 85 17 119/51 (73) 96 01/08/20 19:08 81 18 96 Room Air 21 Intake and Output 01/08/20 01/09/20 19:00 07:00 Intake Total 480 ml 348 ml Output Total 2000 ml Balance -1520 ml 348 ml Intake Oral 480 ml 230 ml Other 118 ml Output Hemodialysis UF 2000 ml # Voids 3 # Bowel Movements 2 Laboratory Tests 01/09/20 07:35: White Blood Count 7.5, Red Blood Count 3.98L, Hemoglobin 10.8L, Hematocrit 34.0L , Mean Corpuscular Volume 85, Mean Corpuscular Hemoglobin 27.2, Mean Corpuscular Hemoglobin Concent 31.8L, Red Cell Distribution Width 13.9, Platelet Count 226, Mean Platelet Volume 8.4, Neutrophils (%) (Auto) 65.6, Lymphocytes (%) (Auto) 27.0, Monocytes (%) (Auto) 6.7, Eosinophils (%) (Auto) 0.1, Basophils (%) (Auto) 0.6, Sodium Level 136, Potassium Level 3.6, Chloride Level 98, Carbon Dioxide Level 25, Anion Gap 13, Blood Urea Nitrogen 32H, Creatinine 5.9H, Estimat Glomerular Filtration Rate 8.6, Glucose Level 135H, Calcium Level 8.9, Random Vancomycin Level 15.5 Height (Feet): 5 Height (Inches): 8.00 Weight (Pounds): 224 Chichi Velasco M.D. Jan 09, 2020 18:09
[2020-01-09 20:00] VITALS: BP 126/96
[2020-01-09] MEDS: Atorvastatin 20mg tab ORAL SCH (21:06)
--- NOTE | 2020-01-09 23:56 | General Progress Note ---
Subjective Date patient seen: Jan 09, 2020 ROS Limited/Unobtainable: No Allergies: Coded Allergies: No Known Allergies (Unverified , 01/04/20) Subjective Interval events: no acute events overnight. Patient sleepy during interview, but reports feeling well, no new complaints. De nies chills, headache. Objective Last 24 Hour Vital Signs Date Time Temp Pulse Resp B/P (MAP) Pulse Ox O2 Delivery O2 Flow Rate FiO2 01/09/20 21:00 Room Air 01/09/20 20:00 99.0 89 20 126/96 (106) 94 01/09/20 16:00 97.6 83 18 116/72 (87) 94 01/09/20 12:00 99.9 80 18 97/46 (63) 95 01/09/20 08:31 97/49 01/09/20 08:02 Room Air 01/09/20 08:00 99.5 74 18 97/49 (65) 97 01/09/20 07:50 78 18 96 Room Air 21 01/09/20 04:00 97.9 78 18 129/60 (83) 95 01/09/20 00:00 98.4 83 19 124/51 (75) 94 Intake and Output 01/08/20 01/09/20 19:00 07:00 Intake Total 480 ml 348 ml Output Total 2000 ml Balance -1520 ml 348 ml Intake Oral 480 ml 230 ml Other 118 ml Output Hemodialysis UF 2000 ml # Voids 3 # Bowel Movements 2 Laboratory Tests 01/09/20 07:35: White Blood Count 7.5, Red Blood Count 3.98L, Hemoglobin 10.8L, Hematocrit 34.0L , Mean Corpuscular Volume 85, Mean Corpuscular Hemoglobin 27.2, Mean Corpuscular Hemoglobin Concent 31.8L, Red Cell Distribution Width 13.9, Platelet Count 226, Mean Platelet Volume 8.4, Neutrophils (%) (Auto) 65.6, Lymphocytes (%) (Auto) 27.0, Monocytes (%) (Auto) 6.7, Eosinophils (%) (Auto) 0.1, Basophils (%) (Auto) 0.6, Sodium Level 136, Potassium Level 3.6, Chloride Level 98, Carbon Dioxide Level 25, Anion Gap 13, Blood Urea Nitrogen 32H, Creatinine 5.9H, Estimat Glomerular Filtration Rate 8.6, Glucose Level 135H, Calcium Level 8.9, Random Vancomycin Level 15.5 Height (Feet): 5 Height (Inches): 8.00 Weight (Pounds): 224 Objective General Appearance: WD/WN, no apparent distress, sleepy EENT: PERRL/EOMI, pharynx normal Neck: non-tender, normal alignment, supple, normal inspection Cardiovascular: normal peripheral pulses, normal rate, regular rhythm, no gallop/murmur Respiratory/Chest: chest wall non-tender, lungs clear, normal breath sounds, no respiratory distress, no accessory muscle use Abdomen: normal bowel sounds, non tender, soft, no organomegaly, no mass Extremities: normal range of motion, non-tender, normal inspection Edema: no edema noted Arm (L), no edema noted Arm (R), no edema noted Leg (L), no edema noted Leg (R) 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, normal mood/affect Skin: normal pigmentation, warm/dry Assessment/Plan Assessment/Plan: A: # Positive Covid infection - still with low grade temps at noon on 01/08 # CAP # ESRD on hemodialysis # Hyperkalemia # ?Seizure disorder # Hypertension # ?Type 2 diabetes mellitus # Hyperlipidemia # Anemia of ESRD # Hyperglycemia # Obesity class I P: Hemodynamically stable, though still having fevers/low grade temps - Per ID, will continue to treat for CAP with CTX/doxycycline - Given negative blood cultures, discontinue vancomycin Saturating well on room air, monitor for increased O2 support Keep saturation O2 greater than 92% DuoNebs as needed Add dexamethasone if saturation drops less than 94% - TTE reassuring, normal EF chest x-ray showing bilateral infiltrates vs edema Follow-up inflammatory markers i.e. ferritin, LDH, D-dimer, troponin, CRP We will continue home lisinopril 20 mg daily, atorvastatin 40 mg daily Continue home Keppra 500 mg twice daily that was on her med rec, although patient is not able to clarify if she has a seizure disorder or not - f/u a1c, iron studies, lipid panel Consult Dr. Page, pulm, recs appreciated Consult Dr. Velasco, nephrology, recs appreciated -Consult Dr. Dai, ID, recs appreciated - Consult Dr. Melissa, surgery, recs appreciated CODE: Full GI: None Diet: Regular DVT prophylaxis: Heparin 5000 units 3 times daily Dispo: Pending stabilization of Covid infection Time spent on this encounter was 36 minutes which included 19 minutes of counseling and care coordination. I discussed with the nurse at bedside, consulting physicians from pulmonology, nephrology, and infectious disease regarding patient's COVID-19 infection, fevers, pneumonia, antibiotic regimen, breathing status and timeline for improvement. Time of note may not reflect time patient was seen. Chip Hernandez M.D. Jan 09, 2020 23:56
[2020-01-10] VITALS (7 sets, daily range): BP systolic 106–148; BP diastolic 61–92
[2020-01-10] MEDS: Heparin 5000 units/ml inj SUBQ SCH ×3 (05:53→21:09)
[2020-01-10] MEDS: Lisinopril 20mg tab ORAL SCH (09:06)
--- NOTE | 2020-01-10 10:33 | Pulmonology Progress Note ---
Subjective ROS Limited/Unobtainable: No Interval Events: None new reported Constitutional: Reports: fever, fatigue, other - more alert HEENT: Repors: no symptoms Respiratory: Reports: no symptoms Cardiovascular: Reports: no symptoms Gastrointestinal/Abdominal: Denies: nausea, vomiting, diarrhea Psychiatric: Denies: depression Skin: Denies: rash Musculoskeletal: Denies: pain Allergies: Coded Allergies: No Known Allergies (Unverified , 01/04/20) Objective Last 24 Hour Vital Signs Date Time Temp Pulse Resp B/P (MAP) Pulse Ox O2 Delivery O2 Flow Rate FiO2 01/10/20 09:06 148/72 01/10/20 09:00 Room Air 01/10/20 08:00 99.1 83 18 148/72 (97) 98 01/10/20 04:00 98.5 91 18 135/85 (102) 94 01/10/20 00:00 98.8 91 20 134/92 (106) 93 01/09/20 21:00 Room Air 01/09/20 20:00 99.0 89 20 126/96 (106) 94 01/09/20 16:00 97.6 83 18 116/72 (87) 94 01/09/20 12:00 99.9 80 18 97/46 (63) 95 Intake and Output 01/09/20 01/10/20 19:00 07:00 Intake Total 720 ml Balance 720 ml Intake Oral 720 ml # Voids 1 # Bowel Movements 1 1 General Appearance: no acute distress HEENT: normocephalic Respiratory: chest wall non-tender, lungs clear Cardiovascular: normal peripheral pulses Abdomen: normal bowel sounds Current Medications Medications (Trade) Dose Ordered Sig/Aurelio Route PRN Reason Start Time Stop Time Status Last Admin Dose Admin Acetaminophen (Tylenol) 650 mg Q4H PRN ORAL Temp >100.5 01/04/20 16:15 02/03/20 16:14 01/06/20 23:29 Acetaminophen (Tylenol) 650 mg Q4H PRN ORAL Mild Pain (Pain Scale 1-3) 01/04/20 16:15 02/03/20 16:14 01/09/20 05:28 Al Hydroxide/Mg Hydroxide (Mylanta II) 30 ml Q6H PRN ORAL dyspepsia 01/04/20 16:15 02/03/20 16:14 Albuterol/ Ipratropium (Combivent Respimat) 1 puff Q4H PRN INH Shortness of Breath 01/04/20 16:15 02/03/20 16:14 Atorvastatin Calcium (Lipitor) 40 mg BEDTIME ORAL 01/04/20 21:00 04/03/20 20:59 01/09/20 21:06 Ceftriaxone Sodium 1 gm/ Dextrose 50 ml @ 100 mls/hr Q24H IVPB 01/06/20 11:15 01/13/20 11:14 01/09/20 12:00 Dextrose (Dextrose 50%) 25 ml Q30M PRN IV Hypoglycemia 01/04/20 16:15 04/03/20 16:14 Dextrose (Dextrose 50%) 50 ml Q30M PRN IV Hypoglycemia 01/04/20 16:15 04/03/20 16:14 Doxycycline Hyclate 100 mg/ Dextrose 100 ml @ 100 mls/hr Q12HR IV 01/06/20 21:00 01/13/20 20:59 01/10/20 09:06 Heparin Sodium (Porcine) (Heparin 5000 units/ml) 5,000 units EVERY 8 HOURS SUBQ 01/04/20 16:15 02/18/20 16:14 01/10/20 05:53 Levetiracetam (Keppra) 500 mg EVERY 12 HOURS ORAL 01/04/20 21:00 02/03/20 20:59 01/10/20 09:07 Lisinopril (PriniviL) 20 mg DAILY ORAL 01/05/20 09:00 02/04/20 08:59 01/10/20 09:06 Magnesium Hydroxide (Mom) 30 ml HSPRN PRN ORAL Constipation 01/04/20 16:15 02/03/20 16:14 Ondansetron HCl (Zofran) 4 mg Q6H PRN IVP Nausea & Vomiting 01/04/20 16:15 02/03/20 16:14 Assessment/Plan Assessment/Plan IMPRESSION: 1. COVID pneumonia. 2. ESRD, on dialysis. 3. Hypertension. 4. Diabetes mellitus. DISCUSSION: Currently saturating well on room air, Discharge planning per nephrology. I will follow carefully. Ana Johnson Omar Syed MD Jan 10, 2020 10:33
[2020-01-10] MEDS: cefTRIAXone 1 GM in D5W 50 ML IVPB SCH (12:13)
--- NOTE | 2020-01-10 16:21 | Nephrology Progress Note ---
Assessment/Plan Plan # Positive Covid infection # ESRD on hemodialysis # Hyperkalemia # ?Seizure disorder # Hypertension # ?Type 2 diabetes mellitus # Hyperlipidemia # Anemia of ESRD # Hyperglycemia # Obesity class I - HD tomorrow - antibiotics per ID- doxy and ceftriaxone - monitor bmp - pulm and ID eval - consider dexa - continue lisinopril 20mg daily - continue keppra - check pTH vitamin D - check iron panel Subjective ROS Limited/Unobtainable: No Constitutional: Reports: weakness HEENT: Denies: no symptoms, eye pain, blurred vision, tearing, double vision, ear pain, ear discharge, nose pain, nose congestion, throat pain, throat swelling, mouth pain, mouth swelling, other Genitourinary: Denies: no symptoms, burning, discharge, frequency, flank pain, hematuria, incontinence, pain, urgency, other Neurologic/Psychiatric: Denies: no symptoms, anxiety, depressed, emotional problems, headache, numbness, paresthesia, pre-existing deficit, seizure, tingling, tremors, weakness, other Subjective feeling ok no cp or SOB Objective Objective Last 24 Hour Vital Signs Date Time Temp Pulse Resp B/P (MAP) Pulse Ox O2 Delivery O2 Flow Rate FiO2 01/10/20 12:00 99.3 87 18 106/61 (76) 98 01/10/20 09:06 148/72 01/10/20 09:00 Room Air 01/10/20 08:00 99.1 83 18 148/72 (97) 98 01/10/20 04:00 98.5 91 18 135/85 (102) 94 01/10/20 00:00 98.8 91 20 134/92 (106) 93 01/09/20 21:00 Room Air 01/09/20 20:00 99.0 89 20 126/96 (106) 94 Intake and Output 01/09/20 01/10/20 19:00 07:00 Intake Total 720 ml Balance 720 ml Intake Oral 720 ml # Voids 1 # Bowel Movements 1 1 Height (Feet): 5 Height (Inches): 8.00 Weight (Pounds): 224 Chichi Velasco M.D. Jan 10, 2020 16:21
--- NOTE | 2020-01-10 17:17 | Surgery Progress Note ---
Surgery Progress Note Subjective Symptoms: improved, tolerating diet, voiding well, passing flatus, BM Objective Last 24 Hour Vital Signs Date Time Temp Pulse Resp B/P (MAP) Pulse Ox O2 Delivery O2 Flow Rate FiO2 01/10/20 12:00 99.3 87 18 106/61 (76) 98 01/10/20 09:06 148/72 01/10/20 09:00 Room Air 01/10/20 08:00 99.1 83 18 148/72 (97) 98 01/10/20 04:00 98.5 91 18 135/85 (102) 94 01/10/20 00:00 98.8 91 20 134/92 (106) 93 01/09/20 21:00 Room Air 01/09/20 20:00 99.0 89 20 126/96 (106) 94 I&O Intake and Output 01/09/20 01/10/20 19:00 07:00 Intake Total 720 ml Balance 720 ml Intake Oral 720 ml # Voids 1 # Bowel Movements 1 1 Dressing: saturated Cardiovascular: RSR Respiratory: decreased breath sounds Abdomen: present bowel sounds Extremities: no edema, no tenderness, no cyanosis Plan Problems: (1) ESRD (end stage renal disease) on dialysis (2) COVID-19 Assessment & Plan: as per ID (3) Abdominal discomfort Assessment & Plan: Six 9-year-old female complaint abdominal discomfort after missing dialysis. Intermittent nausea no emesis. Passing flatus having bowel movements. Labs noted no leukocytosis H&H noted on examination abdomen obese soft nondistended nontender bowel sounds are positive. Likely abdominal c ramping no acute abdominal process identified. No need further imaging right now. Will follow with serial abdominal examinations. Continue diet as tolerated. Will follow with recommendations thank you for letting participate patient's care BetobritniTomás Jan 10, 2020 17:17
--- NOTE | 2020-01-10 18:30 | General Progress Note ---
Subjective Date patient seen: Jan 10, 2020 ROS Limited/Unobtainable: No Constitutional: Denies: chills, diaphoresis, fever, malaise, weakness, other Cardiovascular: Denies: chest pain, edema, irregular heart rate, lightheadedness, palpitations, syncope, other Respiratory: Denies: cough, orthopnea, shortness of breath, SOB with excertion, SOB at rest, sputum, stridor, wheezing, other Allergies: Coded Allergies: No Known Allergies (Unverified , 01/04/20) Subjective Interval events: no acute events overnight. Fever curve improving Patient awake, sitting in bed. No complaints today, feeling better compared to yesterday. Denies fever, chills, headache. Objective Last 24 Hour Vital Signs Date Time Temp Pulse Resp B/P (MAP) Pulse Ox O2 Delivery O2 Flow Rate FiO2 01/10/20 16:00 98.8 95 18 145/89 (107) 100 01/10/20 12:00 99.3 87 18 106/61 (76) 98 01/10/20 09:06 148/72 01/10/20 09:00 Room Air 01/10/20 08:00 99.1 83 18 148/72 (97) 98 01/10/20 04:00 98.5 91 18 135/85 (102) 94 01/10/20 00:00 98.8 91 20 134/92 (106) 93 01/09/20 21:00 Room Air 01/09/20 20:00 99.0 89 20 126/96 (106) 94 Intake and Output 01/09/20 01/10/20 19:00 07:00 Intake Total 720 ml Balance 720 ml Intake Oral 720 ml # Voids 1 # Bowel Movements 1 1 Height (Feet): 5 Height (Inches): 8.00 Weight (Pounds): 224 Objective General Appearance: WD/WN, no apparent distress, resting comfortably EENT: PERRL/EOMI, pharynx normal Neck: non-tender, normal alignment, supple, normal inspection Cardiovascular: normal peripheral pulses, normal rate, regular rhythm, no gallop/murmur Respiratory/Chest: chest wall non-tender, lungs clear, normal breath sounds, no respiratory distress, no accessory muscle use Abdomen: normal bowel sounds, non tender, soft, no organomegaly, no mass Extremities: normal range of motion, non-tender, normal inspection Edema: no edema noted Arm (L), no edema noted Arm (R), no edema noted Leg (L), no edema noted Leg (R) 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, normal mood/affect Skin: normal pigmentation, warm/dry Assessment/Plan Assessment/Plan: A: # Positive Covid infection - fever curve improving though still having low grade temps # CAP # ESRD on hemodialysis # Hyperkalemia # ?Seizure disorder # Hypertension # ?Type 2 diabetes mellitus # Hyperlipidemia # Anemia of ESRD # Hyperglycemia # Obesity class I P: Hemodynamically stable - Per ID, will continue to treat for CAP with CTX/doxycycline - Given negative blood cultures, discontinue vancomycin Saturating well on room air, monitor for increased O2 support Keep saturation O2 greater than 92% DuoNebs as needed Add dexamethasone if saturation drops less than 94% - TTE reassuring, normal EF chest x-ray showing bilateral infiltrates vs edema Follow-up inflammatory markers i.e. ferritin, LDH, D-dimer, troponin, CRP We will continue home lisinopril 20 mg daily, atorvastatin 40 mg daily Continue home Keppra 500 mg twice daily that was on her med rec, although patient is not able to clarify if she has a seizure disorder or not - f/u a1c, iron studies, lipid panel Consult Dr. Page, pulm, recs appreciated Consult Dr. Velasco, nephrology, recs appreciated -Consult Dr. Dai, ID, recs appreciated - Consult Dr. Melissa, surgery, recs appreciated CODE: Full GI: None Diet: Regular DVT prophylaxis: Heparin 5000 units 3 times daily Dispo: Pending stabilization of Covid infection, possibly in next 1-2 days. Time spent on this encounter was 39 minutes which included 21 minutes of counseling and care coordination. I discussed with the nurse at bedside, consulting physicians from pulmonology, nephrology, and infectious disease regarding patient's COVID-19 infection, fevers, pneumonia, antibiotic regimen, breathing status and timeline for improvement. Time of note may not reflect time patient was seen. Chip Hernandez M.D. Jan 10, 2020 18:30
[2020-01-10] MEDS: Atorvastatin 20mg tab ORAL SCH (21:09)
[2020-01-11 04:00] VITALS: BP 126/80
[2020-01-11] MEDS: Heparin 5000 units/ml inj SUBQ SCH ×3 (04:59→22:04)
[2020-01-11 06:28] LABS: EOSINOPHILS % (AUTO) 0.5 % (0.0-3.0); HEMATOCRIT 33.3 % (37.0-47.0); HEMOGLOBIN 10.7 G/DL (12.0-16.0); LYMPHOCYTES % (AUTO) 33.7 % (20.0-45.0); MEAN CORPUSCULAR VOLUME 84 FL (80-99); NEUTROPHILS % (AUTO) 58.8 % (45.0-75.0); PLATELET COUNT 241 K/UL (150-450); RED BLOOD COUNT 3.95 M/UL (4.20-5.40); RED CELL DISTRIBUTION WIDTH 13.9 % (11.6-14.8); WHITE BLOOD COUNT 9.6 K/UL (4.8-10.8)
[2020-01-11 07:06] LABS: PHOSPHORUS 4.6 MG/DL (2.5-4.9)
[2020-01-11 07:17] LABS: CALCIUM 8.4 MG/DL (8.5-10.1); CREATININE 9.5 MG/DL (0.55-1.30); POTASSIUM 4.3 MMOL/L (3.5-5.1)
[2020-01-11 08:00] VITALS: BP 140/88
[2020-01-11] MEDS: Lisinopril 20mg tab ORAL SCH (09:00)
--- NOTE | 2020-01-11 09:42 | Nephrology Progress Note ---
Assessment/Plan Plan # Positive Covid infection # ESRD on hemodialysis # Hyperkalemia # ?Seizure disorder # Hypertension # ?Type 2 diabetes mellitus # Hyperlipidemia # Anemia of ESRD # Hyperglycemia # Obesity class I - HD today - antibiotics per ID- doxy and ceftriaxone - monitor bmp - pulm and ID eval - consider dexa - continue lisinopril 20mg daily - continue keppra - check pTH vitamin D - check iron panel Subjective ROS Limited/Unobtainable: No Constitutional: Reports: weakness HEENT: Denies: no symptoms, eye pain, blurred vision, tearing, double vision, ear pain, ear discharge, nose pain, nose congestion, throat pain, throat swelling, mouth pain, mouth swelling, other Genitourinary: Denies: no symptoms, burning, discharge, frequency, flank pain, hematuria, incontinence, pain, urgency, other Neurologic/Psychiatric: Denies: no symptoms, anxiety, depressed, emotional problems, headache, numbness, paresthesia, pre-existing deficit, seizure, tingling, tremors, weakness, other Subjective feeling ok no cp or SOB Objective Objective Last 24 Hour Vital Signs Date Time Temp Pulse Resp B/P (MAP) Pulse Ox O2 Delivery O2 Flow Rate FiO2 01/11/20 04:00 98.9 97 20 126/80 (95) 98 01/10/20 23:58 Room Air 01/10/20 23:40 98.6 98 20 140/79 (99) 95 01/10/20 20:00 98.8 110 20 135/88 (104) 95 01/10/20 16:00 98.8 95 18 145/89 (107) 100 01/10/20 12:00 99.3 87 18 106/61 (76) 98 Intake and Output 01/10/20 01/11/20 19:00 07:00 Intake Total 840 ml 100 ml Balance 840 ml 100 ml Intake Oral 840 ml IV Total 100 ml Laboratory Tests 01/11/20 04:00: White Blood Count 9.6, Red Blood Count 3.95L, Hemoglobin 10.7L, Hematocrit 33.3L , Mean Corpuscular Volume 84, Mean Corpuscular Hemoglobin 27.0, Mean Corpuscular Hemoglobin Concent 32.0, Red Cell Distribution Width 13.9, Platelet Count 241, Mean Platelet Volume 7.9, Neutrophils (%) (Auto) 58.8, Lymphocytes (%) (Auto) 33.7, Monocytes (%) (Auto) 6.0, Eosinophils (%) (Auto) 0.5, Basophils (%) (Auto) 1.0, Sodium Level 133L, Potassium Level 4.3, Chloride Level 96L, Carbon Dioxide Level 21, Anion Gap 16H, Blood Urea Nitrogen 57H, Creatinine 9.5H, Estimat Glomerular Filtration Rate 5.0, Glucose Level 98, Calcium Level 8.4L, Phosphorus Level 4.6, Magnesium Level 2.5H Height (Feet): 5 Height (Inches): 8.00 Weight (Pounds): 224 Chichi Velasco M.D. Jan 11, 2020 09:42
--- NOTE | 2020-01-11 10:43 | Pulmonology Progress Note ---
Subjective ROS Limited/Unobtainable: No Interval Events: None new reported Constitutional: Reports: fever, fatigue, other - more alert HEENT: Repors: no symptoms Respiratory: Reports: no symptoms Cardiovascular: Reports: no symptoms Gastrointestinal/Abdominal: Denies: nausea, vomiting, diarrhea Psychiatric: Denies: depression Skin: Denies: rash Musculoskeletal: Denies: pain Allergies: Coded Allergies: No Known Allergies (Unverified , 01/04/20) Objective Last 24 Hour Vital Signs Date Time Temp Pulse Resp B/P (MAP) Pulse Ox O2 Delivery O2 Flow Rate FiO2 01/11/20 08:00 98.9 74 18 140/88 (105) 97 01/11/20 04:00 98.9 97 20 126/80 (95) 98 01/10/20 23:58 Room Air 01/10/20 23:40 98.6 98 20 140/79 (99) 95 01/10/20 20:00 98.8 110 20 135/88 (104) 95 01/10/20 16:00 98.8 95 18 145/89 (107) 100 01/10/20 12:00 99.3 87 18 106/61 (76) 98 Intake and Output 01/10/20 01/11/20 19:00 07:00 Intake Total 840 ml 100 ml Balance 840 ml 100 ml Intake Oral 840 ml IV Total 100 ml General Appearance: no acute distress HEENT: normocephalic Respiratory: chest wall non-tender, lungs clear Cardiovascular: normal peripheral pulses Abdomen: normal bowel sounds Laboratory Tests 01/11/20 04:00: White Blood Count 9.6, Red Blood Count 3.95L, Hemoglobin 10.7L, Hematocrit 33.3L , Mean Corpuscular Volume 84, Mean Corpuscular Hemoglobin 27.0, Mean Corpuscular Hemoglobin Concent 32.0, Red Cell Distribution Width 13.9, Platelet Count 241, Mean Platelet Volume 7.9, Neutrophils (%) (Auto) 58.8, Lymphocytes (%) (Auto) 33.7, Monocytes (%) (Auto) 6.0, Eosinophils (%) (Auto) 0.5, Basophils (%) (Auto) 1.0, Sodium Level 133L, Potassium Level 4.3, Chloride Level 96L, Carbon Dioxide Level 21, Anion Gap 16H, Blood Urea Nitrogen 57H, Creatinine 9.5H, Estimat Glomerular Filtration Rate 5.0, Glucose Level 98, Calcium Level 8.4L, Phosphorus Level 4.6, Magnesium Level 2.5H Current Medications Medications (Trade) Dose Ordered Sig/Aurelio Route PRN Reason Start Time Stop Time Status Last Admin Dose Admin Acetaminophen (Tylenol) 650 mg Q4H PRN ORAL Temp >100.5 01/04/20 16:15 02/03/20 16:14 01/06/20 23:29 Acetaminophen (Tylenol) 650 mg Q4H PRN ORAL Mild Pain (Pain Scale 1-3) 01/04/20 16:15 02/03/20 16:14 01/09/20 05:28 Al Hydroxide/Mg Hydroxide (Mylanta II) 30 ml Q6H PRN ORAL dyspepsia 01/04/20 16:15 02/03/20 16:14 Albuterol/ Ipratropium (Combivent Respimat) 1 puff Q4H PRN INH Shortness of Breath 01/04/20 16:15 02/03/20 16:14 Atorvastatin Calcium (Lipitor) 40 mg BEDTIME ORAL 01/04/20 21:00 04/03/20 20:59 01/10/20 21:09 Ceftriaxone Sodium 1 gm/ Dextrose 50 ml @ 100 mls/hr Q24H IVPB 01/06/20 11:15 01/13/20 11:14 01/10/20 12:13 Dextrose (Dextrose 50%) 25 ml Q30M PRN IV Hypoglycemia 01/04/20 16:15 04/03/20 16:14 Dextrose (Dextrose 50%) 50 ml Q30M PRN IV Hypoglycemia 01/04/20 16:15 04/03/20 16:14 Doxycycline Hyclate 100 mg/ Dextrose 100 ml @ 100 mls/hr Q12HR IV 01/06/20 21:00 01/13/20 20:59 01/11/20 09:27 Heparin Sodium (Porcine) (Heparin 5000 units/ml) 5,000 units EVERY 8 HOURS SUBQ 01/04/20 16:15 02/18/20 16:14 01/10/20 13:36 Levetiracetam (Keppra) 500 mg EVERY 12 HOURS ORAL 01/04/20 21:00 02/03/20 20:59 01/11/20 09:27 Lisinopril (PriniviL) 20 mg DAILY ORAL 01/05/20 09:00 02/04/20 08:59 01/10/20 09:06 Magnesium Hydroxide (Mom) 30 ml HSPRN PRN ORAL Constipation 01/04/20 16:15 02/03/20 16:14 Ondansetron HCl (Zofran) 4 mg Q6H PRN IVP Nausea & Vomiting 01/04/20 16:15 02/03/20 16:14 Assessment/Plan Assessment/Plan IMPRESSION: 1. COVID pneumonia. 2. ESRD, on dialysis. 3. Hypertension. 4. Diabetes mellitus. DISCUSSION: Currently saturating well on room air, Discharge planning per nephrology. I will follow carefully. Ana Johnson Omar Syed MD Jan 11, 2020 10:43
--- NOTE | 2020-01-11 10:49 | General Progress Note ---
Subjective Date patient seen: Jan 11, 2020 ROS Limited/Unobtainable: No Constitutional: Denies: chills, fever Cardiovascular: Denies: chest pain, edema, irregular heart rate, lightheadedness Respiratory: Denies: cough, shortness of breath Gastrointestinal/Abdominal: Denies: abdomen distended, abdominal pain, black stools, tarry stools, blood in stool Genitourinary: Denies: discharge, flank pain, hematuria Neurologic/Psychiatric: Denies: headache, numbness Endocrine: Denies: intolerance to cold, intolerance to heat Hematologic/Lymphatic: Denies: easy bleeding Allergies: Coded Allergies: No Known Allergies (Unverified , 01/04/20) Subjective Interval events: no acute events overnight. Remains afebrile. Patient awake sitting in bed. Feels pain from IV catheter in hand. Denies SOB, fever, chills, headache. Objective Last 24 Hour Vital Signs Date Time Temp Pulse Resp B/P (MAP) Pulse Ox O2 Delivery O2 Flow Rate FiO2 01/11/20 09:00 Room Air 01/11/20 08:00 98.9 74 18 140/88 (105) 97 01/11/20 04:00 98.9 97 20 126/80 (95) 98 01/10/20 23:58 Room Air 01/10/20 23:40 98.6 98 20 140/79 (99) 95 01/10/20 20:00 98.8 110 20 135/88 (104) 95 01/10/20 16:00 98.8 95 18 145/89 (107) 100 01/10/20 12:00 99.3 87 18 106/61 (76) 98 Intake and Output 01/10/20 01/11/20 19:00 07:00 Intake Total 840 ml 100 ml Balance 840 ml 100 ml Intake Oral 840 ml IV Total 100 ml Laboratory Tests 01/11/20 04:00: White Blood Count 9.6, Red Blood Count 3.95L, Hemoglobin 10.7L, Hematocrit 33.3L , Mean Corpuscular Volume 84, Mean Corpuscular Hemoglobin 27.0, Mean Corpuscular Hemoglobin Concent 32.0, Red Cell Distribution Width 13.9, Platelet Count 241, Mean Platelet Volume 7.9, Neutrophils (%) (Auto) 58.8, Lymphocytes (%) (Auto) 33.7, Monocytes (%) (Auto) 6.0, Eosinophils (%) (Auto) 0.5, Basophils (%) (Auto) 1.0, Sodium Level 133L, Potassium Level 4.3, Chloride Level 96L, Carbon Dioxide Level 21, Anion Gap 16H, Blood Urea Nitrogen 57H, Creatinine 9.5H, Estimat Glomerular Filtration Rate 5.0, Glucose Level 98, Calcium Level 8.4L, Phosphorus Level 4.6, Magnesium Level 2.5H Height (Feet): 5 Height (Inches): 8.00 Weight (Pounds): 224 Objective General Appearance: WD/WN, no apparent distress, resting comfortably EENT: PERRL/EOMI, pharynx normal Neck: non-tender, normal alignment, supple, normal inspection Cardiovascular: normal peripheral pulses, normal rate, regular rhythm, no gallop/murmur Respiratory/Chest: chest wall non-tender, lungs clear, normal breath sounds, no respiratory distress, no accessory muscle use Abdomen: normal bowel sounds, non tender, soft, no organomegaly, no mass Extremities: normal range of motion, non-tender, left hand tender at site of IV catheter Edema: no edema noted Arm (L), no edema noted Arm (R), no edema noted Leg (L), no edema noted Leg (R) 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, normal mood/affect Skin: normal pigmentation, warm/dry Assessment/Plan Assessment/Plan: A: # Positive Covid infection - fever curve improving though still having low grade temps # CAP # ESRD on hemodialysis # Hyperkalemia # ?Seizure disorder # Hypertension # ?Type 2 diabetes mellitus # Hyperlipidemia # Anemia of ESRD # Hyperglycemia # Obesity class I P: Hemodynamically stable - Per ID, will continue to treat for CAP, switching to PO Augmentin/Doxy - Given negative blood cultures, discontinue vancomycin Saturating well on room air, monitor for increased O2 support Keep saturation O2 greater than 92% DuoNebs as needed Add dexamethasone if saturation drops less than 94% - TTE reassuring, normal EF chest x-ray showing bilateral infiltrates vs edema Follow-up inflammatory markers i.e. ferritin, LDH, D-dimer, troponin, CRP We will continue home lisinopril 20 mg daily, atorvastatin 40 mg daily Continue home Keppra 500 mg twice daily that was on her med rec, although patient is not able to clarify if she has a seizure disorder or not - f/u a1c, iron studies, lipid panel Consult Dr. Page, pulm, recs appreciated Consult Dr. Velasco, nephrology, recs appreciated -Consult Dr. Dai, ID, recs appreciated - Consult Dr. Melissa, surgery, recs appreciated CODE: Full GI: None Diet: Regular DVT prophylaxis: Heparin 5000 units 3 times daily Dispo: Pending stabilization of Covid infection, possibly tomorrow Time spent on this encounter was 36 minutes which included 19 minutes of counseling and care coordination. I discussed with the nurse at bedside, cons ulting physicians from pulmonology, nephrology, and infectious disease regarding patient's COVID-19 infection, fever curve, pneumonia, antibiotic regimen, breathing status and timeline for discharge Time of note may not reflect time patient was seen. Chip Hernandez M.D. Jan 11, 2020 10:49
[2020-01-11] MEDS: cefTRIAXone 1 GM in D5W 50 ML IVPB SCH (11:36)
[2020-01-11 12:00] VITALS: BP 160/76
[2020-01-11] MEDS ORDERED: HYDROcodone/Acetamin 5/325 tab ORAL PRN (12:29)
[2020-01-11 16:00] VITALS: BP 125/49
--- NOTE | 2020-01-11 18:58 | Infectious Diseases Prog Note ---
Assessment/Plan Assessment/Plan ASSESSMENT AND PLAN: 1. covid-19 virus infection, CAP, fevers blood cultures - 2/4 HED[employer] TIER - likely contaminant - surveillance blood cultures negative, patient with fistula and no central line patient has no iv access - change to oral augmentin plus doxycycline - day # 6 - surveillance blood cultures negative - no indication for steroids or remdesivir, saturations stable - monitor labs - clinically improved, fevers improved - f/u chest x-ray improved 2. Patient has end-stage renal disease, on hemodialysis. 3. Diabetes. 4. Hypertension. 5. Diabetes and hypertension treatment per primary care team. 6. Dyslipidemia. 7. Question of seizure disorder. 8. Anemia. 9. Obesity. 10. Continue treatment per primary consultants. 11. No known drug allergies. 12. Social history is negative. 13. Family history noncontributory. 14. MAR was noted. 15. Case was discussed with RN. 16. Continue treatme Subjective Constitutional: Reports: fatigue; Denies: fever HEENT: Denies: congestion Respiratory: Denies: shortness of breath Cardiovascular: Denies: chest pain Gastrointestinal/Abdominal: Denies: nausea, vomiting, diarrhea Genitourinary: Reports: other - no torres, + HD Neurologic: Denies: headache Psychiatric: Denies: depression Skin: Denies: rash Hematologic: Denies: bleeding Musculoskeletal: Denies: pain Allergies: Coded Allergies: No Known Allergies (Unverified , 01/04/20) Objective Last 24 Hour Vital Signs Date Time Temp Pulse Resp B/P (MAP) Pulse Ox O2 Delivery O2 Flow Rate FiO2 01/11/20 16:00 98.1 67 18 125/49 (74) 96 01/11/20 12:00 98.2 77 19 160/76 (104) 99 01/11/20 09:00 Room Air 01/11/20 08:00 98.9 74 18 140/88 (105) 97 01/11/20 04:00 98.9 97 20 126/80 (95) 98 01/10/20 23:58 Room Air 01/10/20 23:40 98.6 98 20 140/79 (99) 95 01/10/20 20:00 98.8 110 20 135/88 (104) 95 Height (Feet): 5 Height (Inches): 8.00 Weight (Pounds): 224 General Appearance: no acute distress HEENT: normocephalic, atraumatic, anicteric, mucous membranes moist Respiratory/Chest: lungs clear, normal breath sounds, no respiratory distress, no accessory muscle use Cardiovascular: normal rate, regular rhythm, no gallop/murmur, no JVD Abdomen: normal bowel sounds, soft, non tender, no organomegaly, non distended Genitourinary: other - no torres Extremities: no cyanosis Skin: no rash Neurologic/Psychiatric: director drug safety II-XII grossly normal, alert, responsive Lymphatic: no neck adenopathy Musculoskeletal: no effusion Chest x-ray - 01/04/20- Procedure: XRAY Chest 1v Indication: Cough Technique: One view of the chest Comparison: none Findings: The heart is upper limits normal in size. There are bilateral interstitial and airspace infiltrates versus edema Impression: Bilateral infiltrates versus edema. Correlate with clinical findings Chest x-ray - 01/06/20 - Procedure: XRAY Chest 1v Indication: Shortness of breath Technique: One view of the chest Comparison: 01/04/2020 Findings: The heart is enlarged. Bilateral interstitial and airspace disease is unchanged. Pleural spaces are grossly clear. Findings are unchanged Impression: Negative Microbiology Date/Time Source Procedure Growth Status 01/06/20 09:25 Blood Blood Culture - Preliminary NO GROWTH AFTER 48 HOURS Resulted 01/04/20 16:00 Rectum VRE Culture - Final Enterococcus Faecalis - Vre Complete 01/04/20 16:00 Nasal Nares MRSA Culture - Final NO METHICILLIN RESISTANT STAPH AUREUS... Complete Laboratory Tests Test 01/11/20 04:00 White Blood Count 9.6 K/UL (4.8-10.8) Red Blood Count 3.95 M/UL (4.20-5.40) L Hemoglobin 10.7 G/DL (12.0-16.0) L Hematocrit 33.3 % (37.0-47.0) L Mean Corpuscular Volume 84 FL (80-99) Mean Corpuscular Hemoglobin 27.0 PG (27.0-31.0) Mean Corpuscular Hemoglobin Concent 32.0 G/DL (32.0-36.0) Red Cell Distribution Width 13.9 % (11.6-14.8) Platelet Count 241 K/UL (150-450) Mean Platelet Volume 7.9 FL (6.5-10.1) Neutrophils (%) (Auto) 58.8 % (45.0-75.0) Lymphocytes (%) (Auto) 33.7 % (20.0-45.0) Monocytes (%) (Auto) 6.0 % (1.0-10.0) Eosinophils (%) (Auto) 0.5 % (0.0-3.0) Basophils (%) (Auto) 1.0 % (0.0-2.0) Sodium Level 133 MMOL/L (136-145) L Potassium Level 4.3 MMOL/L (3.5-5.1) Chloride Level 96 MMOL/L (98-107) L Carbon Dioxide Level 21 MMOL/L (21-32) Anion Gap 16 mmol/L (5-15) H Blood Urea Nitrogen 57 mg/dL (7-18) H Creatinine 9.5 MG/DL (0.55-1.30) H Estimat Glomerular Filtration Rate 5.0 mL/min (>60) Glucose Level 98 MG/DL (74-106) Calcium Level 8.4 MG/DL (8.5-10.1) L Phosphorus Level 4.6 MG/DL (2.5-4.9) Magnesium Level 2.5 MG/DL (1.8-2.4) H Current Medications Medications (Trade) Dose Ordered Sig/Aurelio Route PRN Reason Start Time Stop Time Status Last Admin Dose Admin Acetaminophen (Tylenol) 650 mg Q4H PRN ORAL Temp >100.5 01/04/20 16:15 02/03/20 16:14 01/06/20 23:29 Acetaminophen (Tylenol) 650 mg Q4H PRN ORAL Mild Pain (Pain Scale 1-3) 01/04/20 16:15 02/03/20 16:14 01/09/20 05:28 Acetaminophen/ Hydrocodone Bitart ([place] 5/325) 1 tab Q6H PRN ORAL Severe Breakthru Pain (>7) 01/11/20 12:29 01/18/20 12:28 Al Hydroxide/Mg Hydroxide (Mylanta II) 30 ml Q6H PRN ORAL dyspepsia 01/04/20 16:15 02/03/20 16:14 Albuterol/ Ipratropium (Combivent Respimat) 1 puff Q4H PRN INH Shortness of Breath 01/04/20 16:15 02/03/20 16:14 Amoxicillin/ Clavulanate Potassium (Augmentin) 500 mg DAILY ORAL 01/12/20 09:00 01/19/20 08:59 Atorvastatin Calcium (Lipitor) 40 mg BEDTIME ORAL 01/04/20 21:00 04/03/20 20:59 01/10/20 21:09 Dextrose (Dextrose 50%) 25 ml Q30M PRN IV Hypoglycemia 01/04/20 16:15 04/03/20 16:14 Dextrose (Dextrose 50%) 50 ml Q30M PRN IV Hypoglycemia 01/04/20 16:15 04/03/20 16:14 Doxycycline Monohydrate (Doxycycline Monohydrate) 100 mg EVERY 12 HOURS ORAL 01/11/20 21:00 01/18/20 20:59 Heparin Sodium (Porcine) (Heparin 5000 units/ml) 5,000 units EVERY 8 HOURS SUBQ 01/04/20 16:15 02/18/20 16:14 01/10/20 13:36 Levetiracetam (Keppra) 500 mg EVERY 12 HOURS ORAL 01/04/20 21:00 02/03/20 20:59 01/11/20 09:27 Lisinopril (PriniviL) 20 mg DAILY ORAL 01/05/20 09:00 02/04/20 08:59 01/10/20 09:06 Magnesium Hydroxide (Mom) 30 ml HSPRN PRN ORAL Constipation 01/04/20 16:15 02/03/20 16:14 Ondansetron HCl (Zofran) 4 mg Q6H PRN IVP Nausea & Vomiting 01/04/20 16:15 02/03/20 16:14 Monica Albrecht MD Jan 11, 2020 18:58
--- NOTE | 2020-01-11 19:13 | Surgery Progress Note ---
Surgery Progress Note Subjective Symptoms: improved, tolerating diet, passing flatus, BM Objective Last 24 Hour Vital Signs Date Time Temp Pulse Resp B/P (MAP) Pulse Ox O2 Delivery O2 Flow Rate FiO2 01/11/20 16:00 98.1 67 18 125/49 (74) 96 01/11/20 12:00 98.2 77 19 160/76 (104) 99 01/11/20 09:00 Room Air 01/11/20 08:00 98.9 74 18 140/88 (105) 97 01/11/20 04:00 98.9 97 20 126/80 (95) 98 01/10/20 23:58 Room Air 01/10/20 23:40 98.6 98 20 140/79 (99) 95 01/10/20 20:00 98.8 110 20 135/88 (104) 95 I&O Intake and Output 01/10/20 01/11/20 19:00 07:00 Intake Total 840 ml 100 ml Balance 840 ml 100 ml Intake Oral 840 ml IV Total 100 ml Dressing: saturated Cardiovascular: RSR Respiratory: clear, decreased breath sounds Abdomen: soft, non-tender, present bowel sounds Extremities: no edema, no tenderness, no cyanosis Laboratory Tests Test 01/11/20 04:00 White Blood Count 9.6 K/UL (4.8-10.8) Red Blood Count 3.95 M/UL (4.20-5.40) L Hemoglobin 10.7 G/DL (12.0-16.0) L Hematocrit 33.3 % (37.0-47.0) L Mean Corpuscular Volume 84 FL (80-99) Mean Corpuscular Hemoglobin 27.0 PG (27.0-31.0) Mean Corpuscular Hemoglobin Concent 32.0 G/DL (32.0-36.0) Red Cell Distribution Width 13.9 % (11.6-14.8) Platelet Count 241 K/UL (150-450) Mean Platelet Volume 7.9 FL (6.5-10.1) Neutrophils (%) (Auto) 58.8 % (45.0-75.0) Lymphocytes (%) (Auto) 33.7 % (20.0-45.0) Monocytes (%) (Auto) 6.0 % (1.0-10.0) Eosinophils (%) (Auto) 0.5 % (0.0-3.0) Basophils (%) (Auto) 1.0 % (0.0-2.0) Sodium Level 133 MMOL/L (136-145) L Potassium Level 4.3 MMOL/L (3.5-5.1) Chloride Level 96 MMOL/L (98-107) L Carbon Dioxide Level 21 MMOL/L (21-32) Anion Gap 16 mmol/L (5-15) H Blood Urea Nitrogen 57 mg/dL (7-18) H Creatinine 9.5 MG/DL (0.55-1.30) H Estimat Glomerular Filtration Rate 5.0 mL/min (>60) Glucose Level 98 MG/DL (74-106) Calcium Level 8.4 MG/DL (8.5-10.1) L Phosphorus Level 4.6 MG/DL (2.5-4.9) Magnesium Level 2.5 MG/DL (1.8-2.4) H Plan Problems: (1) ESRD (end stage renal disease) on dialysis (2) COVID-19 Assessment & Plan: as per ID (3) Abdominal discomfort Assessment & Plan: Six 9-year-old female complaint abdominal discomfort after missing dialysis. Intermittent nausea no emesis. Passing flatus having bowel movements. Labs noted no leukocytosis H&H noted on examination abdomen obese soft nondistended nontender bowel sounds are positive. Likely abdominal cramping no acute abdominal process identified. No need further imaging right now. Will follow with serial abdominal examinations. Continue diet as tolerated. Will follow with recommendations thank you for letting participate patient's care Tomás Melissa Jan 11, 2020 19:13
[2020-01-11 20:00] VITALS: BP 131/75
[2020-01-11] MEDS: Doxycycline Monohydrate 100mg ORAL SCH (22:05)
[2020-01-11] MEDS: Atorvastatin 20mg tab ORAL SCH (22:05)
[2020-01-12] VITALS: BP 153/69
[2020-01-12 04:12] VITALS: BP 156/61
[2020-01-12] MEDS: Heparin 5000 units/ml inj SUBQ SCH ×2 (06:00→14:37)
[2020-01-12 08:00] VITALS: BP 116/66
--- NOTE | 2020-01-12 09:58 | Pulmonology Progress Note ---
Subjective ROS Limited/Unobtainable: No Interval Events: None new reported Constitutional: Reports: fatigue; Denies: fever HEENT: Repors: no symptoms Respiratory: Reports: no symptoms Cardiovascular: Reports: no symptoms Gastrointestinal/Abdominal: Denies: nausea, vomiting, diarrhea Psychiatric: Denies: depression Skin: Denies: rash Musculoskeletal: Denies: pain Allergies: Coded Allergies: No Known Allergies (Unverified , 01/04/20) Objective Last 24 Hour Vital Signs Date Time Temp Pulse Resp B/P (MAP) Pulse Ox O2 Delivery O2 Flow Rate FiO2 01/12/20 08:00 98.4 79 20 116/66 (83) 96 01/12/20 04:12 98.1 74 18 156/61 (92) 94 01/12/20 00:00 98.0 71 18 153/69 (97) 94 01/11/20 21:00 Room Air 01/11/20 20:00 98.2 73 18 131/75 (93) 94 01/11/20 16:00 98.1 67 18 125/49 (74) 96 01/11/20 12:00 98.2 77 19 160/76 (104) 99 Intake and Output 01/11/20 01/12/20 19:00 07:00 Intake Total 750 ml Balance 750 ml Intake Oral 600 ml IV Total 150 ml # Voids 1 1 General Appearance: no acute distress HEENT: normocephalic Respiratory: chest wall non-tender, lungs clear Cardiovascular: normal peripheral pulses Abdomen: normal bowel sounds Current Medications Medications (Trade) Dose Ordered Sig/Aurelio Route PRN Reason Start Time Stop Time Status Last Admin Dose Admin Acetaminophen (Tylenol) 650 mg Q4H PRN ORAL Temp >100.5 01/04/20 16:15 02/03/20 16:14 01/06/20 23:29 Acetaminophen (Tylenol) 650 mg Q4H PRN ORAL Mild Pain (Pain Scale 1-3) 01/04/20 16:15 02/03/20 16:14 01/09/20 05:28 Acetaminophen/ Hydrocodone Bitart ([place] 5/325) 1 tab Q6H PRN ORAL Severe Breakthru Pain (>7) 01/11/20 12:29 01/18/20 12:28 Al Hydroxide/Mg Hydroxide (Mylanta II) 30 ml Q6H PRN ORAL dyspepsia 01/04/20 16:15 02/03/20 16:14 Albuterol/ Ipratropium (Combivent Respimat) 1 puff Q4H PRN INH Shortness of Breath 01/04/20 16:15 02/03/20 16:14 Amoxicillin/ Clavulanate Potassium (Augmentin) 500 mg DAILY ORAL 01/12/20 09:00 01/19/20 08:59 Atorvastatin Calcium (Lipitor) 40 mg BEDTIME ORAL 01/04/20 21:00 04/03/20 20:59 01/11/20 22:05 Dextrose (Dextrose 50%) 25 ml Q30M PRN IV Hypoglycemia 01/04/20 16:15 04/03/20 16:14 Dextrose (Dextrose 50%) 50 ml Q30M PRN IV Hypoglycemia 01/04/20 16:15 04/03/20 16:14 Doxycycline Monohydrate (Doxycycline Monohydrate) 100 mg EVERY 12 HOURS ORAL 01/11/20 21:00 01/18/20 20:59 01/11/20 22:05 Heparin Sodium (Porcine) (Heparin 5000 units/ml) 5,000 units EVERY 8 HOURS SUBQ 01/04/20 16:15 02/18/20 16:14 01/11/20 22:04 Levetiracetam (Keppra) 500 mg EVERY 12 HOURS ORAL 01/04/20 21:00 02/03/20 20:59 01/11/20 22:06 Lisinopril (PriniviL) 20 mg DAILY ORAL 01/05/20 09:00 02/04/20 08:59 01/10/20 09:06 Magnesium Hydroxide (Mom) 30 ml HSPRN PRN ORAL Constipation 01/04/20 16:15 02/03/20 16:14 Ondansetron HCl (Zofran) 4 mg Q6H PRN IVP Nausea & Vomiting 01/04/20 16:15 02/03/20 16:14 Assessment/Plan Assessment/Plan IMPRESSION: 1. COVID pneumonia. 2. ESRD, on dialysis. 3. Hypertension. 4. Diabetes mellitus. DISCUSSION: Currently saturating well on room air, Discharge planning per nephrology. I will follow carefully. Ana Johnson Omar Syed MD Jan 12, 2020 09:58
[2020-01-12] MEDS: Doxycycline Monohydrate 100mg ORAL SCH (10:19)
[2020-01-12] MEDS: Lisinopril 20mg tab ORAL SCH (10:19)
--- NOTE | 2020-01-12 11:48 | Discharge Instructions ---
Discharge Instructions Discharge Instructions Diet: renal (80g protein, 2GM) Resume Normal Activity?: Yes Activity: resume normal activities Follow Up Orders follow up with PCP in 1-2 weeks For Congestive Heart Failure Reminder Report to your physician any weight gain of 5 pounds or more in one week. Arsenio Ferreira D.O Jan 12, 2020 11:48
[2020-01-12] MEDS ORDERED: AMOX TR-K CLV1 EAC1 ORAL (11:51)
[2020-01-12] MEDS ORDERED: DOXYCYCLINE MO100 MG ORAL (11:51)
--- NOTE | 2020-01-12 11:51 | Discharge Summary ---
Discharge Summary Hospital Course Date of Admission Jan 04, 2020 at 14:10 Date of Discharge Admitting Diagnosis COVID +, ESRD,MISSED DIALYSIS HPI Komal Scales is a 69 year old female who was admitted on Jan 04, 2020 at 14:10 for Covid Positive, End Stage Renal Disease, General Appearance: WD/WN, no apparent distress, resting comfortably EENT: PERRL/EOMI, pharynx normal Neck: non-tender, normal alignment, supple, normal inspection Cardiovascular: normal peripheral pulses, normal rate, regular rhythm, no gallop/murmur Respiratory/Chest: chest wall non-tender, lungs clear, normal breath sounds, no respiratory distress, no accessory muscle use Abdomen: normal bowel sounds, non tender, soft, no organomegaly, no mass Extremities: normal range of motion, non-tender, left hand tender at site of IV catheter Edema: no edema noted Arm (L), no edema noted Arm (R), no edema noted Leg (L), no edema noted Leg (R) Neurologic: doctor of dental medicine II-XII grossly normal, normal mood/affect Skin: normal pigmentation, warm/dry Hospital Course Mrs. Spencer is a 69F with PMH of ESRD on HD, DM who initially presented on Jan 03 for gereralized weakness. She was found to be Covid positive. Patient remained hemodynamically stable without significant respiratory compromise. Per ID no indication for remdesivir or dexamethasone was warranted throughout her hospitalization. Her medical status continued to improve improve throughout her 8-day admission. She was started on antibiotics per ID community-acquired pneumonia as well. She will go home and finish 3 more days of doxycycline Aug mentin course per ID. She has been cleared by infectious disease and nephrology for discharge today. She is medically stable to go home. # Positive Covid infection - fever curve improving though still having low grade temps # CAP # ESRD on hemodialysis # Hyperkalemia # ?Seizure disorder # Hypertension # ?Type 2 diabetes mellitus # Hyperlipidemia # Anemia of ESRD # Hyperglycemia # Obesity class I P: -Finish 3 more days of doxycycline and Augmentin for pneumonia Discharge home Has hemodialysis set up for her as an outpatient Follow-up with primary care in 1 to 2 weeks Time spent on this encounter was 37 minutes which included 19 minutes of counseling and care coordination. I discussed with the nurse at bedside, consulting physicians from pulmonology, nephrology, and infectious disease regarding patient's COVID-19 infection, fever curve, pneumonia, antibiotic reg imen, breathing status and timeline for discharge Discharge Discharge Vital Signs Last Vital Signs Date Time Temp Pulse Resp B/P (MAP) Pulse Ox O2 Delivery O2 Flow Rate FiO2 01/12/20 10:19 116/66 01/12/20 09:00 Room Air 01/12/20 08:00 98.4 79 20 96 01/09/20 07:50 21 Discharge Disposition Patient was discharged to Discharge Instructions Discharge Instructions Activity: resume normal activities Arsenio Ferreira D.O Jan 12, 2020 11:51
[2020-01-12 12:00] VITALS: BP 130/65
--- NOTE | 2020-01-12 13:30 | Nephrology Progress Note ---
Assessment/Plan Plan # Positive Covid infection # ESRD on hemodialysis # Hyperkalemia # ?Seizure disorder # Hypertension # ?Type 2 diabetes mellitus # Hyperlipidemia # Anemia of ESRD # Hyperglycemia # Obesity class I - HD today - antibiotics per ID- doxy and ceftriaxone - monitor bmp - pulm and ID eval - consider dexa - continue lisinopril 20mg daily - continue keppra - check pTH vitamin D - check iron panel Subjective ROS Limited/Unobtainable: No Constitutional: Reports: weakness HEENT: Denies: no symptoms, eye pain, blurred vision, tearing, double vision, ear pain, ear discharge, nose pain, nose congestion, throat pain, throat swelling, mouth pain, mouth swelling, other Genitourinary: Denies: no symptoms, burning, discharge, frequency, flank pain, hematuria, incontinence, pain, urgency, other Neurologic/Psychiatric: Denies: no symptoms, anxiety, depressed, emotional problems, headache, numbness, paresthesia, pre-existing deficit, seizure, tingling, tremors, weakness, other Subjective feeling ok no cp or SOB Objective Objective Last 24 Hour Vital Signs Date Time Temp Pulse Resp B/P (MAP) Pulse Ox O2 Delivery O2 Flow Rate FiO2 01/12/20 12:00 98.2 77 20 130/65 (86) 97 01/12/20 10:19 116/66 01/12/20 09:00 Room Air 01/12/20 08:00 98.4 79 20 116/66 (83) 96 01/12/20 04:12 98.1 74 18 156/61 (92) 94 01/12/20 00:00 98.0 71 18 153/69 (97) 94 01/11/20 21:00 Room Air 01/11/20 20:00 98.2 73 18 131/75 (93) 94 01/11/20 16:00 98.1 67 18 125/49 (74) 96 Intake and Output 01/11/20 01/12/20 19:00 07:00 Intake Total 750 ml Output Total 2000 ml Balance 750 ml -2000 ml Intake Oral 600 ml IV Total 150 ml Output Hemodialysis UF 2000 ml # Voids 1 1 Height (Feet): 5 Height (Inches): 8.00 Weight (Pounds): 224 Chichi Velasco M.D. Jan 12, 2020 13:30
--- NOTE | 2020-01-12 15:20 | Surgery Progress Note ---
Surgery Progress Note Subjective Symptoms: improved, tolerating diet, passing flatus, BM Objective Last 24 Hour Vital Signs Date Time Temp Pulse Resp B/P (MAP) Pulse Ox O2 Delivery O2 Flow Rate FiO2 01/12/20 12:00 98.2 77 20 130/65 (86) 97 01/12/20 10:19 116/66 01/12/20 09:00 Room Air 01/12/20 08:00 98.4 79 20 116/66 (83) 96 01/12/20 04:12 98.1 74 18 156/61 (92) 94 01/12/20 00:00 98.0 71 18 153/69 (97) 94 01/11/20 21:00 Room Air 01/11/20 20:00 98.2 73 18 131/75 (93) 94 01/11/20 16:00 98.1 67 18 125/49 (74) 96 I&O Intake and Output 01/11/20 01/12/20 19:00 07:00 Intake Total 750 ml Output Total 2000 ml Balance 750 ml -2000 ml Intake Oral 600 ml IV Total 150 ml Output Hemodialysis UF 2000 ml # Voids 1 1 Dressing: saturated Cardiovascular: RSR Respiratory: decreased breath sounds Abdomen: soft, flat, non-tender, present bowel sounds, non-distended Extremities: no edema, no tenderness, no cyanosis Plan Problems: (1) ESRD (end stage renal disease) on dialysis (2) COVID-19 Assessment & Plan: as per ID (3) Abdominal discomfort Assessment & Plan: Six 9-year-old female complaint abdominal discomfort after missing dialysis. Intermittent nausea no emesis. Passing flatus having bowel movements. Labs noted no leukocytosis H&H noted on examination abdomen obese soft nondistended nontender bowel sounds are positive. Likely abdominal cramping no acute abdominal process identified. No need further imaging right now. Will follow with serial abdominal examinations. Continue diet as tolerated. Will follow with recommendations thank you for letting participate patient's care Tomás Melissa Jan 12, 2020 15:20
== END 2020-01-12 15:45 | DRG 177 ==
LOC: EDBD 12:27 → EMR 13:15 → 4E 14:10 → EDBEDREQ 14:30
PROC: 5A1D70Z Performance of Urinary Filtration, Intermittent, Less than 6 Hours Per Day (ICD-10-PCS; principal; 2020-01-06)
DX: U07.1 COVID-19 (principal); N18.6 End stage renal disease; J12.89 Other viral pneumonia; I12.0 Hypertensive chronic kidney disease with stage 5 chronic kidney disease or end stage renal disease; E87.5 Hyperkalemia; E66.9 Obesity, unspecified; R10.9 Unspecified abdominal pain; E11.22 Type 2 diabetes mellitus with diabetic chronic kidney disease; G40.909 Epilepsy, unspecified, not intractable, without status epilepticus; E11.65 Type 2 diabetes mellitus with hyperglycemia
CPT/HCPCS: 36415; 71045; 80048; 80053; 80061; 80202; 82306; 82728; 83036; 83540; 83550; 83605; 83615; 83690; 83735; 83880; 83970; 84100; 84484; 85025; 85379; 85610; 85730; 86140; 86706; 87040; 87081; 87181; 93005; 93306; 94664; 99285; J3490; U0002